=== PATIENT | female | born 1985 | race Caucasian/White ===

== ENCOUNTER → 2018-04-28 08:43 | Outpatient (CLI) | payer OTHER, MEDICAID, SELFPAY ==
--- NOTE | 2018-04-28 | DI.US.S_ITS ---
PROCEDURE: US OB >= 14 WEEKS FETUS INDICATIONS: ANATOMY SCREEN OUTSIDE/PRIOR DATING DATA: Last menstrual period (LMP): 11/12/17. LMP-based estimated date of delivery (NANCY): 08/19/18. First dating scan (date and location): 04/28/18. Estimated date of delivery (NANCY) from first dating scan: 08/23/18. TECHNIQUE: Real-time scanning was performed of the fetus, with image documentation and biometric measurements. Endovaginal scanning: No COMPARISON: [facility], , US RENAL COMPLETE, 02/11/2018, 2:59. [facility], [facility], 10/27/2016, 11:00. FINDINGS: General: A single living intrauterine gestation is present. Presentation: Breech. Placenta: Placental position is posterior, without previa. Amniotic fluid index: 18.3 cm, normal range is 5-24 cm. heart rate: 147 beats per minute. Maternal cervical canal: 3.9 cm long. Normal lower limit is 2.5 cm. biometrics: Biparietal diameter: 22 weeks 2 days Head circumference: 22 weeks 6 days Abdominal circumference: 23 weeks 6 days Femur length: 23 weeks 1 day Estimated gestational age from initial scan: not applicable. Composite gestational age from present scan: 23 weeks 2 days Estimated weight and percentile: 589 g; 22nd percentile Measurement variability for biometric dating: +/- 7 days from 14 weeks to 15 weeks 6 days gestation, +/- 10 days from 16 weeks to 21 weeks 6 days gestation, +/- 2 weeks from 22 weeks to 27 weeks 6 days gestation, +/- 3 weeks for 28 weeks gestation or later. weight reference: 4500 g or EFW >90/95% is considered macrosomia or large for gestational age. EFW <10% is small for gestational age. EFW 5% or less is considered intra-uterine growth restriction. Anatomic survey: Neuro: Ventricles are non-dilated at less than 10 mm. Cisterna magna is normal at 3-11 mm. Cerebellum is normal in size and morphology. Nuchal skin fold: Normal at less than 6 mm between 14-21 weeks gestational age. Face: Nose and lips, facial profile are normal. Spine: No evidence for spina bifida. Heart: Not well-seen. Diaphragm: Diaphragm is intact. Stomach: Left-sided stomach is present. Kidneys: No hydronephrosis. Normal is less than 5 mm in 2nd trimester, less than 7 mm in 3rd trimester. Cord: 3-vessel cord has orthotopic insertion. Bladder: Normal in size. Extremities: All 4 extremities identified. IMPRESSION: 1. Single living IUP present with the estimated gestational age at 23 weeks 2 days. Ultrasound NANCY 08/23/2018. 2. heart not well-visualized otherwise normal anatomy. Followup is recommended. Dictated by: Rene URIAS Interpreted: Batsheva Farooq MD on 04/28/2018 at 11:53 Approved by: Batsheva Farooq M.D. on 04/28/2018 at 12:49
== END ==
PROVIDERS: PCP Family Medicine; Visit Provider Family Medicine
DX: Z36.89 Encounter for other specified antenatal screening (principal); Z3A.23 23 weeks gestation of pregnancy
CPT/HCPCS: 76811

== ENCOUNTER 2018-04-28 10:04 | Emergency (ER) | payer OTHER, MEDICAID, SELFPAY ==
[2018-04-28 10:59] VITALS: BP 132/78; PULSE 87; RESP 18; TEMP 36.6; O2SAT 100; BMI 37.2
[2018-04-28 11:30] VITALS: BP 119/70; PULSE 85; O2SAT 100
[2018-04-28 11:48] LABS: Add Manual Diff / Slide Review NO; Basophils Percent Auto 0.7 % (0-2); Eosinophils Percent Auto 1.1 % (2-4); Hematocrit 32.8 % (36-46); Hemoglobin 11.4 g/dL (12.0-16.0); Lymphocytes Percent Auto 20.2 % (25-40); Mean Corpuscular HGB Conc 34.8 % (30-36); Mean Corpuscular Hemoglobin 31.5 PG (26-34); Mean Corpuscular Volume 90.6 fL (80-100); Monocytes Percent Auto 4.4 % (3-14); Neutrophils Absolute Auto 5700 /uL (3000-5900); Neutrophils Percent Auto 73.6 % (50-75); Platelet Count 203 X10^3/uL (150-400); Red Blood Cell Count 3.62 X10^6/uL (4.0-5.2); Red Cell Distribution Width 13.3 % (11.6-14.8); White Blood Cell Count 7.8 X10^3/uL (4.5-11.0)
[2018-04-28] MEDS: ONDANSETRON 4 MG/2 ML INJ IV (11:55)
[2018-04-28] MEDS: SODIUM CHLORIDE 0.9% 1,000 ML 1000 ML IV (11:55)
[2018-04-28] MEDS: CEFTRIAXONE 1 GM/50 ML FROZ.PIGGY IV (11:55)
[2018-04-28 12:00] LABS: BUN Creatinine Ratio 11.7 (6-22); Blood Urea Nitrogen 7 mg/dL (7-17); Calcium 9.4 mg/dL (8.4-10.2); Carbon Dioxide 25 mmol/L (22-32); Chloride 104 mmol/L (98-107); Estimated Glomerular Filt Rate > 60.0 mL/min (>60); Glucose 98 mg/dL (70-100); HEMOLYSIS < 15 (0-50); Potassium 4.1 mmol/L (3.4-5.1); Sodium 136 mmol/L (137-145)
[2018-04-28 12:49] VITALS: BP 122/80; PULSE 81; O2SAT 100
--- NOTE | 2018-04-28 12:51 | ED.FEMALEGU ---
HPI - Female Genitourinary General Chief complaint: Urogenital-Female Stated complaint: kidney infection Time Seen by Provider: 04/28/18 11:04 Source: patient Mode of arrival: ambulatory Limitations: no limitations History of Present Illness HPI Narrative: 33-year-old nonsmoking female is a G 15 p 7 at 23 weeks presents with dysuria and frequency with back pain. She was seen and evaluated last night at an outside facility with no evidence of a stone but some evidence of infection. The patient was started on Ceftin twice daily and given fluids and Zofran. Her pain is much worse with motion and improves with rest. She becomes intensely nauseated at the smell of the antibiotic and associated belching with it. She refuses to take any more of this antibiotic. Her primary care doc sent her here for fluids antiemetics. She does have radiation of pain to her back MD Complaint: UTI Onset (ago): hour(s) Location: perineum and suprapubic Severity: moderate Quality: Aching and Burning Duration: constant Relieving factors: none Exacerbating factors: none Urinary symptoms: Difficulty Urinating and Dysuria Patient : Yes Associated symptoms: nausea/vomiting Related Data : 15 Para: 7 Home Medications Medication Instructions Recorded Confirmed acyclovir 400 mg PO BID PRN 04/28/18 04/28/18 acyclovir 800 mg PO TIDX2 PRN 04/28/18 04/28/18 cephalexin 500 mg PO QIDX7 04/28/18 04/28/18 metoclopramide HCl 10 mg PO Q8H PRN 04/28/18 04/28/18 Previous Rx's Medication Instructions Recorded cefuroxime axetil 500 mg PO Q12H 10 Days #20 tab 04/28/18 ondansetron 4 mg PO Q6-8H PRN #10 tab 04/28/18 oxycodone 5 mg PO Q4-6H PRN #6 tab 04/28/18 Allergies Allergy/AdvReac Type Severity Reaction Status Date / Time No Known Drug Allergies Allergy Verified 04/28/18 11:05 Review of Systems Review of Systems All systems reviewed & are unremarkable except as noted in HPI and below Constitutional Denies chills, Denies fever(s), Denies lethargy and Denies weakness Eyes Denies change in vision, Denies eye discharge, Denies irritation and Denies loss of vision ENT Ears, Nose, Mouth, and Throat: Denies change in voice, Denies neck pain and Denies sore throat Cardiovascular Denies chest pain, Denies irregular heart rhythm, Denies lightheadedness, Denies palpitations, Denies dyspnea, Denies dyspnea on exertion and Denies orthopnea Respiratory Denies cough, Denies dyspnea, Denies dyspnea on exertion and Denies wheezing Gastrointestinal Gastrointestinal: Denies abdominal pain, Denies change in bowel habits, Denies diarrhea, Denies nausea and Denies vomiting Genitourinary Denies hematuria, Reports urinary frequency, Reports dysuria, Reports pelvic pain, Denies flank pain, Denies urinary incontinence and Denies urinary urgency Musculoskeletal Denies neck pain Integumentary/Breasts Denies pruritus, Denies erythema, Denies rash and Denies wounds Neurologic Denies confusion, Denies loss of vision and Denies weakness Psychiatric Denies anxiety, Denies confusion, Denies depression, Denies homicidal ideation and Denies suicidal ideation Endocrine Denies palpitations Hematologic/Lymphatic Denies easy bruising Allergic/Immunologic Denies wheezing [facility] Social History Smoking Status: Never smoker Exam Narrative Exam Narrative: 33-year-old female resting comfortably, playing on her cellphone. Initial Vital Signs Initial Vital Signs: Vital Signs Temperature 97.9 F 04/28/18 10:59 Pulse Rate 87 04/28/18 10:59 Respiratory Rate 18 04/28/18 10:59 Blood Pressure 132/78 04/28/18 10:59 Pulse Oximetry 100 04/28/18 10:59 Const General: cooperative, well developed and No in distress Nutritional Appearance: well nourished Orientation: alert, awake, oriented x3 and not confused [facility] Head: normocephalic Ears: external ears normal Nose: external nose normal Face and sinus: sinuses nontender and face symmetric Mouth: oral mucosae normal Teeth and gingiva: dentition normal Chest Chest: normal inspection of the chest Cardio Rate: regular rate Rhythm: regular rhythm Heart Sounds: no click, no gallops, no murmurs and no rubs Pulses: normal peripheral pulses GI Inspection: non-distended Palpation: soft, no hepatosplenomegaly, No guarding, No pulsatile mass and No tender Auscultation: normal bowel sounds Back/Spine/Pelvis Back: No CVA tenderness Cervical Spine: cervical ROM normal and No pain with cervical ROM Thoracic/Lumbar Spine: thoracic and lumbar spine normal to inspection Skin General: no rashes or lesions noted, No jaundice and No petechiae Extrem General: full ROM, no clubbing, cyanosis or edema, no pedal edema and no calf tenderness Course Orders Ordered: ED Orders 04/28/18 11:40 Basic Metabolic Panel Stat Complete Blood Count AUTO DIFF Stat Discontinued Medications Ceftriaxone Sodium/Dextrose (Rocephin) 1 gm in 50 mls @ 100 mls/hr IV NOW ONE Stop: 04/28/18 11:48 Last Infusion: 04/28/18 12:57 Dose: 0 mls/hr Admin: 04/28/18 11:55 Dose: 100 mls/hr Sodium Chloride (Normal Saline 0.9%) 1,000 mls @ 1,000 mls/hr IV BOLUS ONE Stop: 04/28/18 12:17 Last Infusion: 04/28/18 14:20 Dose: 0 mls/hr Admin: 04/28/18 11:55 Dose: 1,000 mls/hr Ondansetron HCl (Zofran) 4 mg IV Q4HR PRN PRN Reason: Nausea And Vomiting Last Admin: 04/28/18 11:55 Dose: 4 mg Oxycodone/Acetaminophen (Percocet 5/325) 1 tab PO NOW ONE Stop: 04/28/18 13:01 Last Admin: 04/28/18 13:11 Dose: 1 tab Consultations Consultation #1: i've spoken with PCP whom is happy to see patient tomorrow. He recommends we switch ABX to Ceftin and is happy for us to write a small Rx of Oxycodone. Vital Signs - 8 hr 04/28/18 10:59 04/28/18 11:30 04/28/18 12:49 Temperature 97.9 F Pulse Rate 87 85 81 Respiratory Rate 18 Blood Pressure 132/78 Blood Pressure [Left Arm] 119/70 122/80 Pulse Oximetry 100 100 100 04/28/18 14:37 Temperature 97.2 F L Pulse Rate 83 Respiratory Rate 16 Blood Pressure 122/76 Blood Pressure [Left Arm] Pulse Oximetry 100 MDM - Female Genitourinary Differential Diagnosis Likely urinary tract infection and ruptured ovarian cyst Medical Records Attestation: I reviewed the patient's medical records. Lab Data Attestation: I reviewed the patient's lab results. Result diagrams: 04/28/18 11:40 04/28/18 11:40 Lab Results 04/28/18 04/28/18 Range/Units 11:40 11:40 WBC 7.8 (4.5-11.0) X10^3/uL RBC 3.62 L (4.0-5.2) X10^6/uL Hgb 11.4 L (12.0-16.0) g/dL Hct 32.8 L (36-46) % MCV 90.6 (80-100) fL MCH 31.5 (26-34) PG MCHC 34.8 (30-36) % RDW 13.3 (11.6-14.8) % Plt Count 203 (150-400) X10^3/uL Neut % (Auto) 73.6 (50-75) % Lymph % (Auto) 20.2 L (25-40) % [place] % (Auto) 4.4 (3-14) % Eos % (Auto) 1.1 L (2-4) % Baso % (Auto) 0.7 (0-2) % Neut # (Auto) 5700 (0326-5552) /uL Sodium 136 L (137-145) mmol/L Potassium 4.1 (3.4-5.1) mmol/L Chloride 104 (98-107) mmol/L Carbon Dioxide 25 (22-32) mmol/L BUN 7 (7-17) mg/dL Creatinine 0.60 (0.52-1.04) mg/dL Estimated GFR > 60.0 (>60) mL/min BUN/Creatinine Ratio 11.7 (6-22) Glucose 98 (70-100) mg/dL Calcium 9.4 (8.4-10.2) mg/dL Imaging Data US - abdomen: Radiologist's impression: [address] [id number] Ultrasound Report Signed Patient: Tatyana Shah RMR#: [id number] : 1985Acct:[id number] Age/Sex: 33 / FDate of Service: 04/28/18 Loc: US Accession Number: [id number] Procedure: US OB >= 14 weeks Fetus Ordering Provider: Davon Berg MD PROCEDURE: US OB >= 14 WEEKS FETUS INDICATIONS: ANATOMY SCREEN OUTSIDE/PRIOR DATING DATA: Last menstrual period (LMP): 11/12/17. LMP-based estimated date of delivery (NANCY): 08/19/18. First dating scan (date and location): 04/28/18. Estimated date of delivery (NANCY) from first dating scan: 08/23/18. TECHNIQUE: Real-time scanning was performed of the fetus, with image documentation and biometric measurements. Endovaginal scanning: No COMPARISON: [facility], , US RENAL COMPLETE, 02/11/2018, 2:59. [facility], [facility], 10/27/2016, 11:00. FINDINGS: General: A single living intrauterine gestation is present. Presentation: Breech. Placenta: Placental position is posterior, without previa. Amniotic fluid index: 18.3 cm, normal range is 5-24 cm. heart rate: 147 beats per minute. Maternal cervical canal: 3.9 cm long. Normal lower limit is 2.5 cm. biometrics: Biparietal diameter: 22 weeks 2 days Head circumference: 22 weeks 6 days Abdominal circumference: 23 weeks 6 days Femur length: 23 weeks 1 day Estimated gestational age from initial scan: not applicable. Composite gestational age from present scan: 23 weeks 2 days Estimated weight and percentile: 589 g; 22nd percentile Measurement variability for biometric dating: +/- 7 days from 14 weeks to 15 weeks 6 days gestation, +/- 10 days from 16 weeks to 21 weeks 6 days gestation, +/- 2 weeks from 22 weeks to 27 weeks 6 days gestation, +/- 3 weeks for 28 weeks gestation or later. weight reference: 4500 g or EFW >90/95% is considered macrosomia or large for gestational age. EFW <10% is small for gestational age. EFW 5% or less is considered intra-uterine growth restriction. Anatomic survey: Neuro: Ventricles are non-dilated at less than 10 mm. Cisterna magna is normal at 3-11 mm. Cerebellum is normal in size and morphology. Nuchal skin fold: Normal at less than 6 mm between 14-21 weeks gestational age. Face: Nose and lips, facial profile are normal. Spine: No evidence for spina bifida. Heart: Not well-seen. Diaphragm: Diaphragm is intact. Stomach: Left-sided stomach is present. Kidneys: No hydronephrosis. Normal is less than 5 mm in 2nd trimester, less than 7 mm in 3rd trimester. Cord: 3-vessel cord has orthotopic insertion. Bladder: Normal in size. Extremities: All 4 extremities identified. IMPRESSION: 1. Single living IUP present with the estimated gestational age at 23 weeks 2 days. Ultrasound NANCY 08/23/2018. 2. heart not well-visualized otherwise normal anatomy. Followup is recommended. Dictated by: Rene Hill RRA Interpreted: Batsheva Farooq MD on 04/28/2018 at 11:53 Approved by: Batsheva Farooq M.D. on 04/28/2018 at 12:49 ECG Data Attestation: I personally reviewed and interpreted this ECG as follows: Prior ECG tracings: not available for review Discharge Plan Departure Patient Disposition: Home Clinical Impression: Pyelonephritis Discharge Date/Time: 04/28/18 14:37 Interventions: ED Discharge Assessment Last Done: 04/28/18 14:37 Instructions: DI for Kidney Infection Activity Restrictions/Additional Instructions: *You have been diagnosed with [ Acute Pyelonephritis] *What to do: *Take medications as directed *Follow up with Dr. Berg tomorrow call for an appointment. Let them know you were seen in the Emergency Department and that we ask that you be seen in follow up *Return to ER if you should have any new, worsening or concerning symptoms Prescriptions: New cefuroxime axetil 500 mg tablet 500 mg PO Q12H 10 Days Qty: 20 RF: 0 ondansetron 4 mg tablet,disintegrating 4 mg PO Q6-8H PRN (Reason: nausea and vomiting) Qty: 10 RF: 0 oxycodone 5 mg tablet 5 mg PO Q4-6H PRN (Reason: pain) Qty: 6 RF: 0 No Action acyclovir 800 mg tablet 800 mg PO TIDX2 PRN (Reason: herpes outbreak) RF: 0 cephalexin 500 mg capsule 500 mg PO QIDX7 RF: 0 acyclovir 200 mg capsule 400 mg PO BID PRN (Reason: Outbreak) RF: 0 metoclopramide HCl 10 mg tablet 10 mg PO Q8H PRN (Reason: Nausea) RF: 0 Referrals: Davon Berg MD [Primary Care Provider] -
[2018-04-28] MEDS: OXYCODONE/ACETAMINOPHEN 5/325 TABLET 1 TAB PO (13:11)
[2018-04-28 14:37] VITALS: BP 122/76; PULSE 83; RESP 16; TEMP 36.2; O2SAT 100
== END 2018-04-28 14:37 | disposition home or self-care (01) ==
PROVIDERS: Emergency Provider Emergency Medicine; PCP Family Medicine
DX: O26.892 Other specified pregnancy related conditions, second trimester (principal); N12 Tubulo-interstitial nephritis, not specified as acute or chronic; Z3A.23 23 weeks gestation of pregnancy
CPT/HCPCS: 36591; 76811; 80048; 85025; 96361; 96365; 96375; 99283; 99284; J2405

== ENCOUNTER 2018-05-14 21:27 | Emergency (ER) | payer OTHER, MEDICAID, SELFPAY ==
[2018-05-14 21:40] VITALS: BP 135/83; PULSE 82; RESP 18; TEMP 36.3; O2SAT 100; BMI 38.0
--- NOTE | 2018-05-14 21:57 | ED.FEMALEGU ---
HPI - Female Genitourinary General Chief complaint: Urogenital-Female Stated complaint: my kidneys are giving me trouble Time Seen by Provider: 05/14/18 21:41 History of Present Illness HPI Narrative: 33-year-old female nonsmoker G 15 P 7 at 26 weeks presents with a recurrence of dysuria, frequency and bilateral flank pain consistent with prior episodes of pyelonephritis. I last saw her for the same a few weeks ago and she responded well to a combination of Rocephin and cefuroxime. She had been doing quite well until the past few days when her symptoms seemed to have returned. She had a subjective fever but no shaking chills. She has persistent nausea. She denies any vaginal bleeding or discharge. MD Complaint: dysuria and UTI Onset (ago): hour(s) Female Urogenital Radiation: L Flank and R Flank Severity: moderate Quality: Aching and Cramping Duration: constant Relieving factors: none Exacerbating factors: urination Urinary symptoms: Difficulty Urinating, Dysuria and Flank Pain Patient : Yes Associated symptoms: nausea/vomiting Related Data Home Medications Medication Instructions Recorded Confirmed acyclovir 400 mg PO BID PRN 04/28/18 04/28/18 acyclovir 800 mg PO TIDX2 PRN 04/28/18 04/28/18 cephalexin 500 mg PO QIDX7 04/28/18 04/28/18 metoclopramide HCl 10 mg PO Q8H PRN 04/28/18 04/28/18 Previous Rx's Medication Instructions Recorded ondansetron 4 mg PO Q6-8H PRN #10 tab 04/28/18 oxycodone 5 mg PO Q4-6H PRN #6 tab 04/28/18 Allergies Allergy/AdvReac Type Severity Reaction Status Date / Time No Known Drug Allergies Allergy Verified 05/14/18 21:44 Review of Systems Review of Systems All systems reviewed & are unremarkable except as noted in HPI and below Constitutional Denies chills, Denies fever(s), Denies lethargy and Denies weakness Eyes Denies change in vision, Denies eye discharge, Denies irritation and Denies loss of vision ENT Ears, Nose, Mouth, and Throat: Denies change in voice, Denies neck pain and Denies sore throat Cardiovascular Denies chest pain, Denies irregular heart rhythm, Denies lightheadedness, Denies palpitations, Denies dyspnea, Denies dyspnea on exertion and Denies orthopnea Respiratory Denies cough, Denies dyspnea, Denies dyspnea on exertion and Denies wheezing Gastrointestinal Gastrointestinal: Denies abdominal pain, Denies change in bowel habits, Denies diarrhea, Denies nausea and Denies vomiting Genitourinary Denies hematuria, Denies flank pain, Denies urinary incontinence and Denies urinary urgency Musculoskeletal Reports back pain and Denies neck pain Integumentary/Breasts Denies pruritus, Denies erythema, Denies rash and Denies wounds Neurologic Denies confusion, Denies loss of vision and Denies weakness Psychiatric Denies anxiety, Denies confusion, Denies depression, Denies homicidal ideation and Denies suicidal ideation Endocrine Denies palpitations Hematologic/Lymphatic Denies easy bruising Allergic/Immunologic Denies wheezing [facility] Social History Smoking Status: Never smoker Exam Narrative Exam Narrative: GENERAL: 33-year-old female obviously uncomfortable, unwell HEAD: Atraumatic. Normocephalic. No temporal or scalp tenderness. EYES: Pupils equal round and reactive. Extraocular motions intact. No scleral icterus. No injection or drainage. ENT: Nose without bleeding, purulent drainage or septal hematoma. Throat without erythema, tonsillar hypertrophy or exudate. Uvula midline. Airway patent. NECK: Trachea midline. No JVD or lymphadenopathy. Supple, nontender, no meningeal signs. CARDIOVASCULAR: Regular rate and rhythm without murmurs, gallops, or rubs. RESPIRATORY: Clear to auscultation. Breath sounds equal bilaterally. No wheezes, rales, or rhonchi. GASTROINTESTINAL: Abdomen soft, non-tender, nondistended. No hepato-splenomegaly, or palpable masses. No guarding. EXTREMITIES: No clubbing, cyanosis, or edema. No joint tenderness, effusion, or edema noted. BACK: Nontender without deformity or crepitance. No flank tenderness. NEURO: AOx3. SKIN: No rash or erythema. Initial Vital Signs Initial Vital Signs: Vital Signs Temperature 97.4 F L 05/14/18 21:40 Pulse Rate 82 05/14/18 21:40 Respiratory Rate 18 05/14/18 21:40 Blood Pressure 135/83 05/14/18 21:40 Pulse Oximetry 100 05/14/18 21:40 Const General: cooperative Nutritional Appearance: obese Orientation: alert, awake and oriented x3 HENMT Head: normal to inspection Ears: hearing grossly normal bilaterally Nose: external nose normal Face and sinus: normal facial exam Mouth: oral mucosae normal Eyes General: appearance normal, both eyes and all related structures Eyelids: eyelids normal Conjunctivae: conjunctivae normal Sclera: sclerae normal Pupils: PERRL EOM: EOM intact bilaterally Chest Chest: normal inspection of the chest Cardio Rate: regular rate Rhythm: regular rhythm Heart Sounds: no click, no gallops, no murmurs and no rubs Pulses: normal peripheral pulses GI Other: Gravid uterus above the umbilicus Back/Spine/Pelvis Other: Bilateral CVA tenderness Skin General: no rashes or lesions noted, No jaundice and No petechiae Extrem General: full ROM, no clubbing, cyanosis or edema, no pedal edema and no calf tenderness Course Orders Ordered: ED Orders 05/14/18 22:15 Alanine Aminotransferase Stat Alkaline Phosphatase Stat Aspartate Aminotransferase Stat Basic Metabolic Panel Stat Bilirubin Total Stat Complete Blood Count AUTO DIFF Stat 05/14/18 22:30 Lactate (Lactic Acid) Stat 05/14/18 23:32 US renal complete Stat Discontinued Medications Ceftriaxone Sodium/Dextrose (Rocephin) 1 gm in 50 mls @ 100 mls/hr IV NOW ONE Stop: 05/14/18 22:25 Last Infusion: 05/14/18 23:05 Dose: 0 mls/hr Admin: 05/14/18 22:31 Dose: 100 mls/hr Sodium Chloride (Normal Saline 0.9%) 1,000 mls @ 1,000 mls/hr IV BOLUS ONE Stop: 05/14/18 22:55 Last Admin: 05/14/18 22:31 Dose: 1,000 mls/hr Vital Signs - 8 hr 05/14/18 21:40 05/14/18 23:45 Temperature 97.4 F L Pulse Rate 82 84 Respiratory Rate 18 16 Blood Pressure 135/83 Blood Pressure [Left Arm] 124/75 Pulse Oximetry 100 99 MDM - Female Genitourinary Lab Data Result diagrams: 05/14/18 22:15 05/14/18 22:15 Lab Results 05/14/18 05/14/18 05/14/18 Range/Units 22:15 22:15 22:15 WBC 8.9 (4.5-11.0) X10^3/uL RBC 3.81 L (4.0-5.2) X10^6/uL Hgb 11.9 L (12.0-16.0) g/dL Hct 34.6 L (36-46) % MCV 90.9 (80-100) fL MCH 31.2 (26-34) PG MCHC 34.3 (30-36) % RDW 13.1 (11.6-14.8) % Plt Count 220 (150-400) X10^3/uL Neut % (Auto) 78.1 H (50-75) % Lymph % (Auto) 15.4 L (25-40) % [place] % (Auto) 5.1 (3-14) % Eos % (Auto) 1.0 L (2-4) % Baso % (Auto) 0.4 (0-2) % Neut # (Auto) 7000 H (1632-8499) /uL Sodium 138 (137-145) mmol/L Potassium 4.1 (3.4-5.1) mmol/L Chloride 106 (98-107) mmol/L Carbon Dioxide 22 (22-32) mmol/L BUN 10 (7-17) mg/dL Creatinine 0.60 (0.52-1.04) mg/dL Estimated GFR > 60.0 (>60) mL/min BUN/Creatinine Ratio 16.7 (6-22) Glucose 109 H (70-100) mg/dL Lactate (0.7-2.1) mmol/L Calcium 9.2 (8.4-10.2) mg/dL Total Bilirubin 0.3 (0.2-1.3) mg/dL AST 16 (14-36) IU/L ALT 16 (9-52) IU/L Alkaline Phosphatase 33 L (38-126) U/L //18 Range/Units 22:30 WBC (4.5-11.0) X10^3/uL RBC (4.0-5.2) X10^6/uL Hgb (12.0-16.0) g/dL Hct (36-46) % MCV (80-100) fL MCH (26-34) PG MCHC (30-36) % RDW (11.6-14.8) % Plt Count (150-400) X10^3/uL Neut % (Auto) (50-75) % Lymph % (Auto) (25-40) % [place] % (Auto) (3-14) % Eos % (Auto) (2-4) % Baso % (Auto) (0-2) % Neut # (Auto) (0352-6514) /uL Sodium (137-145) mmol/L Potassium (3.4-5.1) mmol/L Chloride (98-107) mmol/L Carbon Dioxide (22-32) mmol/L BUN (7-17) mg/dL Creatinine (0.52-1.04) mg/dL Estimated GFR (>60) mL/min BUN/Creatinine Ratio (6-22) Glucose (70-100) mg/dL Lactate 0.9 (0.7-2.1) mmol/L Calcium (8.4-10.2) mg/dL Total Bilirubin (0.2-1.3) mg/dL AST (14-36) IU/L ALT (9-52) IU/L Alkaline Phosphatase (38-126) U/L Urine Dip Bedside Urine Glucose Negative Bedside Urine Bilirubin - Negative Bedside Urine Ketone - Negative Urine Specific [place] 1.025 Bedside Urine Occult Blood - Negative Bedside Urine pH 6.0 Bedside Urine Protein - Negative Bedside Urine Urobilinogen - Negative Bedside Urine Nitrite - Negative Bedside Urine Leukocytes - Negative Esterase Imaging Data US - abdomen: Radiologist's impression: Renal US notes no hydro or other abnormal finding MDM Narrative Medical decision making narrative: Multiple etiologies of right flank pain considered including kidney stone, pyelonephritis, hydronephrosis of , and biliary disease. Urine POC demonstrates no leuk. Estrace or nitrite, nor blood making kidney stone, UTI and pyelonephritis less likely. Renal ultrasound shows no abnormalities as well. Furthermore lab work evaluating gallbladder and liver were unremarkable. Patient will continue to treat her symptoms and follow up with her primary care provider for ongoing evaluation of this unfortunate flank pain during this Discharge Plan Departure Patient Disposition: Home Clinical Impression: Acute right flank pain Instructions: DI for Flank Pain Activity Restrictions/Additional Instructions: *You have been diagnosed with [ right flank pain ] *What to do: *Take medications as directed *Follow up with your primary care provider in 2-3 days, call for an appointment. Let them know you were seen in the Emergency Department and that we ask that you be seen in follow up *Return to ER if you should have any new, worsening or concerning symptoms Prescriptions: No Action acyclovir 800 mg tablet 800 mg PO TIDX2 PRN (Reason: herpes outbreak) RF: 0 cephalexin 500 mg capsule 500 mg PO QIDX7 RF: 0 acyclovir 200 mg capsule 400 mg PO BID PRN (Reason: Outbreak) RF: 0 metoclopramide HCl 10 mg tablet 10 mg PO Q8H PRN (Reason: Nausea) RF: 0 ondansetron 4 mg tablet,disintegrating 4 mg PO Q6-8H PRN (Reason: nausea and vomiting) Qty: 10 RF: 0 oxycodone 5 mg tablet 5 mg PO Q4-6H PRN (Reason: pain) Qty: 6 RF: 0
[2018-05-14] MEDS: SODIUM CHLORIDE 0.9% 1,000 ML 1000 ML IV (22:31)
[2018-05-14] MEDS: CEFTRIAXONE 1 GM/50 ML FROZ.PIGGY IV (22:31)
[2018-05-14 22:33] LABS: Add Manual Diff / Slide Review NO; Basophils Percent Auto 0.4 % (0-2); Hematocrit 34.6 % (36-46); Hemoglobin 11.9 g/dL (12.0-16.0); Lymphocytes Percent Auto 15.4 % (25-40); Mean Corpuscular HGB Conc 34.3 % (30-36); Mean Corpuscular Hemoglobin 31.2 PG (26-34); Mean Corpuscular Volume 90.9 fL (80-100); Monocytes Percent Auto 5.1 % (3-14); Neutrophils Absolute Auto 7000 /uL (3000-5900); Neutrophils Percent Auto 78.1 % (50-75); Platelet Count 220 X10^3/uL (150-400); Red Blood Cell Count 3.81 X10^6/uL (4.0-5.2); Red Cell Distribution Width 13.1 % (11.6-14.8); White Blood Cell Count 8.9 X10^3/uL (4.5-11.0)
[2018-05-14 22:42] LABS: BUN Creatinine Ratio 16.7 (6-22); Blood Urea Nitrogen 10 mg/dL (7-17); Calcium 9.2 mg/dL (8.4-10.2); Carbon Dioxide 22 mmol/L (22-32); Chloride 106 mmol/L (98-107); Estimated Glomerular Filt Rate > 60.0 mL/min (>60); Glucose 109 mg/dL (70-100); HEMOLYSIS < 15 (0-50); Potassium 4.1 mmol/L (3.4-5.1); Sodium 138 mmol/L (137-145)
[2018-05-14 22:55] LABS: Lactate (Lactic Acid) 0.9 mmol/L (0.7-2.1)
--- NOTE | 2018-05-14 23:32 | DI.US.S_ITS ---
PROCEDURE: US RENAL COMPLETE INDICATIONS: RIGHT FLANK PAIN TECHNIQUE: Real-time scanning was performed of the kidneys and bladder, with image documentation. COMPARISON: None. FINDINGS: Kidneys: Kidneys are normal in size. Right kidney measures 12.8 cm long; left kidney measures 12.9 cm long. Right renal cortical thickness is 1.9 cm; left renal cortical thickness is 2.1 cm. Renal cortical echotexture is normal. No hydronephrosis or nephrolithiasis. No suspicious solid mass lesions. Bladder: Pre-void bladder volume is 75 mL. Post-void residual is no mL. Pre-void images demonstrate no intraluminal masses or stones. On pre-void images, neither the right and left ureteral jets are noted with color Doppler interrogation. (Of note, ureteral jets may not be detectable in up to 25% of cases due to insufficient differences in specific gravity between ureteral and bladder urine). Miscellaneous: No free pelvic fluid. Intrauterine identified with heart rate measured 141 beats per minutes. IMPRESSION: Normal renal sonogram. No hydronephrosis. Dictated by: Chandni Lerma MD, PhD on 05/15/2018 at 9:13 Approved by: Chandni Lerma MD, PhD on 05/15/2018 at 9:14
[2018-05-14 23:45] VITALS: BP 124/75; PULSE 84; RESP 16; O2SAT 99
[2018-05-14 23:46] LABS: Alanine Aminotransferase 16 IU/L (9-52); Alkaline Phosphatase 33 U/L (38-126); Aspartate Aminotransferase 16 IU/L (14-36); Bilirubin Total 0.3 mg/dL (0.2-1.3)
[2018-05-15 00:45] VITALS: BP 121/65; PULSE 73; RESP 16; O2SAT 99
--- NOTE | 2018-05-29 21:19 | PC.NURSE ---
Late entry: 1,000 mL bag of normal saline was stopped at 2331 on 05/14/18. Total intake of normal saline was 1,000 mL.
== END 2018-05-15 00:54 | disposition home or self-care (01) ==
PROVIDERS: Emergency Provider Emergency Medicine; PCP Family Medicine
DX: R10.9 Unspecified abdominal pain (principal)
CPT/HCPCS: 36591; 76770; 80048; 81003; 82247; 83605; 84075; 84450; 84460; 85025; 96365; 99283; 99284

== ENCOUNTER → 2018-06-06 08:32 | Outpatient (CLI) | payer OTHER, MEDICAID, SELFPAY ==
--- NOTE | 2018-06-06 | DI.US.S_ITS ---
PROCEDURE: US OB FOLLOW UP INDICATIONS: REEVALUATE HEART OUTSIDE/PRIOR DATING DATA: Last menstrual period (LMP): 11/12/17. LMP-based estimated date of delivery (NANCY): 08/19/18. First dating scan (date and location): 04/28/18. Estimated date of delivery (NANCY) from first dating scan: 08/23/18. TECHNIQUE: Real-time scanning was performed of the fetus, with image documentation and biometric measurements. Endovaginal scanning: No COMPARISON: [facility], , OB >= 14 WEEKS FETUS, 04/28/2018, 9:12. FINDINGS: General: A single living intrauterine gestation is present. Presentation: Transverse. Placenta: Placental position is posterior, without previa. Amniotic fluid index: 17.0 cm, normal range is 5-24 cm. heart rate: 139 beats per minute. Maternal cervical canal: Not well-seen. Normal 4 chamber heart and cardiac outflow tracts. IMPRESSION: 1. Single living IUP redemonstrated and today's exam demonstrating a normal four-chamber heart and cardiac outflow tracts. Dictated by: Rene Hill [facility] Interpreted: Gomez Núñez MD on 06/06/2018 at 11:02 Approved by: Gomez Núñez M.D. on 06/06/2018 at 12:58
== END ==
PROVIDERS: PCP Family Medicine; Visit Provider Family Medicine
DX: Z36.89 Encounter for other specified antenatal screening (principal); Z3A.29 29 weeks gestation of pregnancy
CPT/HCPCS: 76816

== ENCOUNTER 2018-06-23 11:12 | Outpatient (CLI) | payer OTHER, MEDICAID, SELFPAY | END 2018-06-23 12:32 | disposition home or self-care (01) | LOC: LABOR 12:24 → OB 06-26 15:48 | PROVIDERS: PCP Family Medicine; Visit Provider Family Medicine | DX: Z34.83 Encounter for supervision of other normal pregnancy, third trimester (principal); R10.9 Unspecified abdominal pain; Z3A.31 31 weeks gestation of pregnancy; K59.00 Constipation, unspecified; O26.23 Pregnancy care for patient with recurrent pregnancy loss, third trimester | CPT/HCPCS: 59025; G0378; G0379 ==

== ENCOUNTER 2018-06-29 09:14 | Inpatient (IN) | payer OTHER, MEDICAID, SELFPAY ==
--- NOTE | 2018-06-29 10:13 | DI.US.S_ITS ---
PROCEDURE: US OB LIMITED INDICATIONS: PTL OUTSIDE/PRIOR DATING DATA: Last menstrual period (LMP): 11/14/17. LMP-based estimated date of delivery (NANCY): 08/19/18. First dating scan (date and location): 04/28/18 at [facility]. Estimated date of delivery (NANCY) from first dating scan: 08/23/18. TECHNIQUE: Real-time scanning was performed of the fetus, with image documentation and biometric measurements. Endovaginal scanning: Performed. COMPARISON: [facility], , [employer], 10/27/2016, 11:00. FINDINGS: General: A single living intrauterine gestation is present. Presentation: Vertex Placenta: Placental position is fundal, without previa. Amniotic fluid index: 23.8 cm, normal range is 5-24 cm. heart rate: 125 beats per minute. Maternal cervical canal: 3.7 cm long. Normal lower limit is 2.5 cm. biometrics: Biparietal diameter: 8.3 cm, 33 week and Head circumference: 29.3 cm, 32 weeks 2 days Abdominal circumference: 30.6 cm, 34 week 4 day Femur length: 6.7 cm, 34 weeks 3 days Estimated gestational age from initial scan: 32 week one day Composite gestational age from present scan: 33 week 5 day Estimated weight and percentile: 2365 g, 94% Measurement variability for biometric dating: +/- 7 days from 14 weeks to 15 weeks 6 days gestation, +/- 10 days from 16 weeks to 21 weeks 6 days gestation, +/- 2 weeks from 22 weeks to 27 weeks 6 days gestation, +/- 3 weeks for 28 weeks gestation or later. weight reference: 4500 g or EFW >90/95% is considered macrosomia or large for gestational age. EFW <10% is small for gestational age. EFW 5% or less is considered intra-uterine growth restriction. Other: biophysical profile score is 8 out of 8. Significant prominence of left maternal renal collecting system is seen suggestive of moderate to severe hydronephrosis. IMPRESSION: 1. Single v with fetus in vertex presentation. heart rate is 125 beats per minute. Estimated gestational age is 33 weeks 5 days. Estimated weight is 2365 g and is at 94%. 2. biophysical profile score is 8 out of 8. 3. Moderate to severe maternal left-sided hydronephrosis. Dictated by: Gomez Núñez M.D. on 06/29/2018 at 11:23 Approved by: Gomez Núñez M.D. on 06/29/2018 at 11:28
[2018-06-29 10:57] LABS: Add Manual Diff / Slide Review NO; Basophils Percent Auto 0.3 % (0-2); Eosinophils Percent Auto 0.5 % (2-4); Lymphocytes Percent Auto 11.7 % (25-40); Mean Corpuscular HGB Conc 34.4 % (30-36); Mean Corpuscular Hemoglobin 30.2 PG (26-34); Mean Corpuscular Volume 87.8 fL (80-100); Neutrophils Absolute Auto 9100 /uL (1500-7000); Neutrophils Percent Auto 81.5 % (50-75); Platelet Count 175 X10^3/uL (150-400); Red Blood Cell Count 3.64 X10^6/uL (4.0-5.2); Red Cell Distribution Width 13.8 % (11.6-14.8); White Blood Cell Count 11.1 X10^3/uL (4.5-11.0)
[2018-06-29] MEDS: OXYCODONE/ACETAMINOPHEN 5/325 TABLET 2 TAB PO ×2 (11:24→13:50)
[2018-06-29] MEDS: LACTATED RINGERS 1,000 ML 1000 ML IV (11:26)
[2018-06-29 11:33] LABS: Aspartate Aminotransferase 29 IU/L (14-36); BUN Creatinine Ratio 14.3 (6-22); Blood Urea Nitrogen 10 mg/dL (7-17); Estimated Glomerular Filt Rate > 60.0 mL/min (>60); Uric Acid 5.2 mg/dL (2.5-6.2)
[2018-06-29 12:01] LABS: RBC Urine None Seen (0-5/HPF); WBC Urine None Seen (0-5/HPF)
[2018-06-29 12:09] LABS: Appearance Urine UA CLEAR; Bilirubin Urine UA NEGATIVE (NEGATIVE); Color Urine UA YELLOW; Glucose Urine UA NEGATIVE (Negative); Ketones Urine UA NEGATIVE (NEGATIVE); Leukocyte Esterase Urine UA NEGATIVE (NEGATIVE); Nitrite Urine UA NEGATIVE (Negative); Occult Blood Urine UA NEGATIVE (Negative); Protein Urine UA NEGATIVE (Negative); Specific Gravity Urine UA 1.015 (1.000-1.035); Urobilinogen Urine UA 0.2 E.U./dL (0.2)
[2018-06-29 12:23] LABS: Bacteria Urine Occasional (0-1); Culture Indicated Urine Cult Not Indicated; Squamous Epithelial Cell Urine 1-5 /HPF
[2018-06-29] MEDS: LACTATED RINGERS 1,000 ML 100 ML IV (12:35)
[2018-06-29] MEDS: NIFEdipine 10 MG CAPSULE PO ×2 (13:54→14:14)
[2018-06-29] MEDS: MAGNESIUM SULFATE 4 GM/100 ML PIGGYBACK IV (14:15)
--- NOTE | 2018-06-29 14:17 | PM.OBHP.1 ---
OB HPI History of Present Condition Chief complaint: OBS Narrative: Tatyana Shah is a 33 year old female who is followed by Dr. Berg as her primary care provider. Patient is a G12 P 6 at 32 weeks gestation based on an LMP of 11/13/2017 with a EDC of 08/20/2018 whose has been complicated by left flank pain secondary to moderate to severe hydronephrosis with recurrent UTIs as well. She has also been complicated by genital herpes. The she has been treated as an outpatient for this same problem with hydrocodone and antibiotics. She presents to Labor and delivery this morning with complaints of severe flank pain and contractions. She did not make her appointment with Dr. Berg on Tuesday because her car broke down and she called stating that she was having contractions but was referred to go to Labor and delivery earlier this week I believe on Tuesday and she did not go. She continued to have contractions and they progressed and the pain progressed so that she presented to labor and delivery. On initial exam in labor and delivery she was found to be a fingertip dilated and 40% effaced. She was given Percocet for her flank pain which did help take the edge off the flank pain she was given a total of 2 tablets of 5 mg of Percocet and the pain improved though it did not go away and then it progressively worsened with progressively worsening uterine contractions and cervical change to effacement of 70% and 1 cm dilation. Due to her 30 weeks gestation it was felt that she needed transfer to a facility that could better care for a 32 week gestation . The case was discussed with Dr. Jesus Urias at [facility] who was willing to accept patient for care for labor at 32 weeks gestation and severe left hydronephrosis causing severe flank pain. Review of systems patient denies any dysuria or hematuria. Patient denies any vaginal bleeding. Patient denies any change in discharge. Patient denies any headaches on swelling and states that baby has been active. Past medical history: One. Nephrolithiasis Two. Cervical dysplasia 3. Depression anxiety 4. Herpes simplex infection Current medications Patient just finished Keflex course for suspected UTI Acyclovir vitamins Percocet as needed for left flank pain Allergies morphine Past surgical history 1. Right carpal tunnel release Past OB history 1. 01/25/2007 at 36 weeks gestation normal spontaneous vaginal delivery of a viable male weighing 6 lb 2 oz. complicated by preeclampsia 2. 09/29/2009 at 40 weeks gestation normal spontaneous vaginal delivery after 5 hr of labor at [facility] female viable at 8 lb 5 oz 3. 12/10/2011 normal spontaneous vaginal delivery of a viable 7 lb 13 oz 4. 09/18/2013 at 39 weeks gestation normal spontaneous vaginal delivery of a viable male weighing 8 lb 4 oz 5. 11/22/2014 normal spontaneous vaginal delivery of a viable 8 lb 5 oz a Patient has had 5 spontaneous miscarriages at Evaluation Evaluation Laboratory results: Laboratory Tests 06/29/18 06/29/18 06/29/18 10:36 10:36 Unknown WBC 11.1 H RBC 3.64 L Hgb 11.0 L Hct 32.0 L MCV 87.8 MCH 30.2 MCHC 34.4 RDW 13.8 Plt Count 175 Neut % (Auto) 81.5 H Lymph % (Auto) 11.7 L Hyde % (Auto) 6.0 Eos % (Auto) 0.5 L Baso % (Auto) 0.3 Neut # (Auto) 9100 H BUN 10 Creatinine 0.70 Estimated GFR > 60.0 BUN/Creatinine Ratio 14.3 Uric Acid 5.2 AST 29 Urine Color Yellow Urine Appearance Clear Urine pH 7.0 Ur Specific Carriere 1.015 Urine Protein Negative Urine Glucose (UA) Negative Urine Ketones Negative Urine Occult Blood Negative Urine Nitrate Negative Urine Bilirubin Negative Urine Urobilinogen 0.2 Ur Leukocyte Esterase Negative Urine RBC None seen Urine WBC None seen Ur Squamous Epith Cells 1-5 /hpf Urine Bacteria Occasional (0-1) Ur Culture Indicated? Cult not indicated PFSH Social History Smoking Status: Never smoker Meds Home Medications Medication Instructions Recorded Confirmed Type acyclovir 400 mg PO BID PRN 04/28/18 04/28/18 History acyclovir 800 mg PO TIDX2 PRN 04/28/18 04/28/18 History cephalexin 500 mg PO QIDX7 04/28/18 04/28/18 History metoclopramide HCl 10 mg PO Q8H PRN 04/28/18 04/28/18 History ondansetron 4 mg PO Q6-8H PRN #10 tab 04/28/18 Rx oxycodone 5 mg PO Q4-6H PRN #6 tab 04/28/18 Rx Allergies Allergy/AdvReac Type Severity Reaction Status Date / Time No Known Drug Allergies Allergy Verified 05/23/18 13:39 Review of Systems Review of Systems Twelve point review of systems is negative. Please see HPI Exam Narrative Exam Narrative: Initial blood pressure was elevated further blood pressures have been within normal. Patient is writhing in pain and grasping at her left flank HEENT: Unremarkable Neck: Supple without adenopathy or thyromegaly Chest: Clear to auscultation without wheezes Cor: Regular rate and rhythm without murmur Abdomen: Positive bowel sounds, no guarding, no rebound, estimated weight 6 lb Moderate contractions present, vertex presentation head filter press tender to palpation over the left lumbar spine Extremities: No edema pulses intact DTRs: Intact No clonus Cervix: Soft midposition high ballotable, vertex, 1 cm dilated, 70% effaced heart tracing is difficult due to being unable to get patient to hold still. Also due to patient's size able used to get her on the monitor. We are able to get a strip is reactive. Contractions are every 3-5 minutes are moderate palpation Objective Labs Result Diagrams: 06/29/18 10:36 06/29/18 10:36 Labs: Laboratory Results - last 24 hr 06/29/18 06/29/18 06/29/18 10:36 10:36 Unknown WBC 11.1 H RBC 3.64 L Hgb 11.0 L Hct 32.0 L MCV 87.8 MCH 30.2 MCHC 34.4 RDW 13.8 Plt Count 175 Neut % (Auto) 81.5 H Lymph % (Auto) 11.7 L Hyde % (Auto) 6.0 Eos % (Auto) 0.5 L Baso % (Auto) 0.3 Neut # (Auto) 9100 H BUN 10 Creatinine 0.70 Estimated GFR > 60.0 BUN/Creatinine Ratio 14.3 Uric Acid 5.2 AST 29 Urine Color Yellow Urine Appearance Clear Urine pH 7.0 Ur Specific Carriere 1.015 Urine Protein Negative Urine Glucose (UA) Negative Urine Ketones Negative Urine Occult Blood Negative Urine Nitrate Negative Urine Bilirubin Negative Urine Urobilinogen 0.2 Ur Leukocyte Esterase Negative Urine RBC None seen Urine WBC None seen Ur Squamous Epith Cells 1-5 /hpf Urine Bacteria Occasional (0-1) Ur Culture Indicated? Cult not indicated Assessment and Plan Plan: Plan: 33-year-old g-12 P6 at 32 weeks estimated gestational age based on LMP and 9 week ultrasound with labor and severe left hydronephrosis and pain secondary to this Plan: Transfer to [facility] for higher level of care and definitive treatment Patient consented of the risks and benefits of transfer Will give penicillin bolus now due to unknown GBS status Will start magnesium sulfate 4 g bolus and then 2 g an hour Betamethasone 12 mg IM given at 1428 on 06/29/2018 Serology a positive, antibody negative, rubella not immune, hepatitis-B, hepatitis-C negative hemoglobin 11.2, chlamydia negative, gonorrhea negative, Pap smear normal 01/24/2018, HIV nonreactive, glucose tolerance test 123 Status post flu shot 03/22/2018 Tetanus shot 05/15/2018
[2018-06-29] MEDS: BETAMETHASONE 30 MG/5 ML MDV 12 MG IM (14:28)
[2018-06-29] MEDS: PENICILLIN G POTASSIUM 5,000,000 UNIT in DEXTROSE 5% IN WATER 250 ML IV (14:32)
[2018-06-29] MEDS: MAGNESIUM SULFATE 20 GM/500 ML IV.SOLN IV (15:27)
== END 2018-06-29 15:45 | disposition short-term general hospital (02) | DRG 832 ==
PROVIDERS: Family Medicine; Admitting Provider Family Medicine; PCP Family Medicine; Visit Provider Family Medicine
DX: O60.03 Preterm labor without delivery, third trimester (principal); N13.30 Unspecified hydronephrosis; O26.23 Pregnancy care for patient with recurrent pregnancy loss, third trimester; Z3A.32 32 weeks gestation of pregnancy; O99.89 Other specified diseases and conditions complicating pregnancy, childbirth and the puerperium
CPT/HCPCS: 36415; 59050; 76815; 76817; 76819; 81001; 84450; 84550; 85025; 96360; 96372; G0379; J0702; J2540; J3475

== ENCOUNTER → 2018-07-26 14:07 | Outpatient (REF) | payer OTHER, MEDICAID, SELFPAY | LOC: LAB 14:07 | PROVIDERS: Visit Provider Family Medicine | DX: Z34.90 Encounter for supervision of normal pregnancy, unspecified, unspecified trimester (principal) | CPT/HCPCS: 87081 ==

== ENCOUNTER → 2018-08-01 07:59 | Outpatient (CLI) | payer OTHER, MEDICAID, SELFPAY ==
--- NOTE | 2018-08-01 | DI.US.S_ITS ---
PROCEDURE: US OB LIMITED INDICATIONS: SIZE AND GREATER THAN DATES OUTSIDE/PRIOR DATING DATA: Last menstrual period (LMP): 11/12/17. LMP-based estimated date of delivery (NANCY): 08/19/18. First dating scan (date and location): 04/28/18 [facility]. Estimated date of delivery (NANCY) from first dating scan: 08/23/18. TECHNIQUE: Real-time scanning was performed of the fetus, with image documentation and biometric measurements. Endovaginal scanning: Not performed COMPARISON: [facility], OB LIMITED, 06/29/2018, 10:38. FINDINGS: General: A single living intrauterine gestation is present. Presentation: Vertex. Placenta: Placental position is fundal, without previa. Amniotic fluid index: 26.4 cm, normal range is 5-24 cm. heart rate: 150 beats per minute. Maternal cervical canal: 3.7 cm long. Normal lower limit is 2.5 cm. biometrics: Biparietal diameter: 9.5 cm, 38 weeks, 6 days Head circumference: 34.3 cm, 39 weeks, 4 days Abdominal circumference: 37.1 cm, 41 weeks, zero days Femur length: 7.2 cm, 36 weeks, 6 days Estimated gestational age from initial scan: 36 weeks, 6 days Composite gestational age from present scan: 39 weeks, one day Estimated weight and percentile: 3882 g, 99th percentile Measurement variability for biometric dating: +/- 7 days from 14 weeks to 15 weeks 6 days gestation, +/- 10 days from 16 weeks to 21 weeks 6 days gestation, +/- 2 weeks from 22 weeks to 27 weeks 6 days gestation, +/- 3 weeks for 28 weeks gestation or later. weight reference: 4500 g or EFW >90/95% is considered macrosomia or large for gestational age. EFW <10% is small for gestational age. EFW 5% or less is considered intra-uterine growth restriction. Other: IMPRESSION: 1. Single live intrauterine gestation with a composite gestational age of 33 weeks, 5 days which is concordant with the dates by initial scan. 2. 99th percentile for weight. Sonographic findings suggest macrosomia. 3. Amniotic fluid index at 26.4 cm which is greater than the upper limits of normal suggesting polyhydramnios. Dictated by: Sweetie Davidson M.D. on 08/01/2018 at 11:33 Approved by: Sweetie Davidson M.D. on 08/01/2018 at 11:39
== END ==
PROVIDERS: PCP Family Medicine; Visit Provider Family Medicine
DX: O26.843 Uterine size-date discrepancy, third trimester (principal)
CPT/HCPCS: 76815

== ENCOUNTER 2018-08-01 08:51 | Observation (INO) | payer OTHER, MEDICAID, SELFPAY | END 2018-08-01 11:13 | disposition home or self-care (01) | PROVIDERS: Admitting Provider Family Medicine; PCP Family Medicine; Visit Provider Family Medicine | DX: O47.1 False labor at or after 37 completed weeks of gestation (principal); O26.23 Pregnancy care for patient with recurrent pregnancy loss, third trimester; Z3A.37 37 weeks gestation of pregnancy | CPT/HCPCS: 59025; 59050; 76815; G0378; G0379 ==

== ENCOUNTER 2018-08-14 07:00 | Inpatient (IN) | payer OTHER, MEDICAID, SELFPAY ==
--- NOTE | 2018-08-14 08:03 | P.HPOB_ITS ---
OB HPI Date/Time Date of admission: 08/14/18 Date Patient Seen: 08/14/18 Time Patient Seen: 08:03 History of Present Condition Chief complaint: OBS : 12 Para: 5 Estimated Date of Delivery: 08/21/18 Estimated Gestational Age (weeks): 39 Narrative: Tatyana Shah is a 33 year old female Comments: Patient is a 33-year-old SAB 5 who presents with elective induction at 39 weeks. Patient has looked LGA infant and recent 25 NORM 2 weeks ago. Has been with history of enlarged baby. Also with history of kidney stones multiple throughout this . Was on chronic narcotics for Room mid part of the . None for the last month. Increasing difficulty sleeping. Increasing pain. No leaking fluid. Good movement. No other significant change. Indications Other reason(s) for admission: Polyhydramnios. LGA infant History of Present care: good care Dating criteria: LMP confirmed by 1st trimester US Ultrasounds: normal mid trimester US and abnormal US findings Abnormal ultrasound findings: Polyhydramnios Obstetrical complications: other Medical complications: other Narrative: Polyhydramnios, persistent and recurrent kidney stones Preadmission Labs Blood type: A (+) positive -: Antibody screen: negative, Cystic fibrosis screen: negative, GBS status: negative, HBsAG: negative, HIV: negative, HSV 1: negative, HSV 2: negative and RPR/VDLR: negative -: Chlamydia screen: not detected and Gonorrhea screen: not detected -: Rubella: immune and Varicella: immune HCT: 34 HCAB: negative PAP: Normal Sequential screen: Normal Urine: Normal 1 hr GTT: 132 Prior (ies) History: 01/25/2007 36 weeks male 6 lb 2 oz Miscarriage early 09/29/2009 in 40 week 5 hr female 8 lb 5 oz Miscarriages x3 12/10/2011 7 lb 13 oz 09/18/2013 39 weeks 8 lb 4 oz 11/22/2014 8 lb 5 oz male Miscarriage Present Evaluation Evaluation Baseline heart rate: 150 Variability: Moderate (11-25) monitor accelerations: Present Contraction Frequency (minutes): 0 Category of Tracing: I Cervical dilation (cm): 2 Cervical effacement (%): 70 station: -1 [facility] Social History Smoking Status: Never smoker Meds Home Medications Medication Instructions Recorded Confirmed Type acyclovir 400 mg PO BID PRN 04/28/18 04/28/18 History acyclovir 800 mg PO TIDX2 PRN 04/28/18 04/28/18 History cephalexin 500 mg PO QIDX7 04/28/18 04/28/18 History metoclopramide HCl 10 mg PO Q8H PRN 04/28/18 04/28/18 History ondansetron 4 mg PO Q6-8H PRN #10 tab 04/28/18 Rx oxycodone 5 mg PO Q4-6H PRN #6 tab 04/28/18 Rx Allergies Allergy/AdvReac Type Severity Reaction Status Date / Time No Known Drug Allergies Allergy Verified 08/01/18 11:07 Review of Systems Review of Systems All systems reviewed & are unremarkable except as noted in HPI and below Exam Narrative Exam Narrative: Alert female no acute distress. Lungs are clear. Heart regular rate and rhythm. Abdomen is soft positive bowel sounds nontender gravid. Vertex. Extremities without cyanosis clubbing edema. Reflexes normal. Objective Labs Labs: Assessment and plan. Thirty-nine week estimated gestational age female with polyhydramnios and LGA infant here for induction. Rupture when able. Pitocin.
[2018-08-14] MEDS: LACTATED RINGERS 1,000 ML 100 ML IV (08:05)
[2018-08-14 08:20] LABS: Add Manual Diff / Slide Review NO; Basophils Absolute Auto 0 /uL (0-100); Basophils Percent Auto 0.4 % (0-2); Eosinophils Absolute Auto 100 /uL (0-450); Eosinophils Percent Auto 1.4 % (2-4); Hematocrit 35.5 % (36-46); Lymphocytes Absolute Auto 1700 /uL (1100-4500); Lymphocytes Percent Auto 24.9 % (25-40); Mean Corpuscular HGB Conc 33.9 % (30-36); Mean Corpuscular Hemoglobin 30.1 PG (26-34); Mean Corpuscular Volume 88.8 fL (80-100); Monocytes Absolute Auto 500 /uL (0-900); Monocytes Percent Auto 6.8 % (3-14); Neutrophils Absolute Auto 4500 /uL (1500-7000); Neutrophils Percent Auto 66.5 % (50-75); Platelet Count 177 X10^3/uL (150-400); Red Cell Distribution Width 16.3 % (11.6-14.8); White Blood Cell Count 6.8 X10^3/uL (4.5-11.0)
[2018-08-14] MEDS: OXYTOCIN PREMIX 30 UNIT/500 ML PLAST..BAG IV (08:28)
--- NOTE | 2018-08-14 12:34 | PM.OBPNLAB ---
Date/Time Date Patient Seen: 08/14/18 Time Patient Seen: 12:34 Pain Control Pain control: tolerating well Pelvic Exam Dilation (cm): 2 Effacement (%): 70 station: -1 Amniotic membrane status: Ruptured Contractions Contractions on admission: regular Pitocin rate (mU/min): 10 Contraction pattern: Regular Status Monitor Accelerations: Present Monitor Decelerations: Absent Monitor Variability: Moderate Assessment and Plan Assessment: induction ongoing Comments: A wrong with clear fluid. Continue Pitocin appear vaginal delivery.
--- NOTE | 2018-08-14 13:27 | PM.OBPNLAB ---
Date/Time Date Patient Seen: 08/14/18 Time Patient Seen: 13:27 Pain Control Pain control: tolerating well Comments: Starting to have an increase amount of pain Pelvic Exam Dilation (cm): 3 Effacement (%): 90 station: -1 Amniotic membrane status: Ruptured Contractions Contractions on admission: regular Monitor mode: External Contraction frequency (min): 3 Contraction pattern: Regular Status status: Category l Comments: Patient had a decrease into the 50s when she got up and went on the ball but has recovered and looks normal now. Will watch closely. Assessment and Plan Assessment: induction ongoing Plan: continuous present management Comments: Will watch closely with the celebration. Now that she has ruptured seems to be having increased intensity epidural she desires.
[2018-08-14 14:46] VITALS: BP 121/81
--- NOTE | 2018-08-14 17:33 | PM.OBPRVD ---
Events: Labor Induction and Polyhydramnios Delivery date: 08/14/18 Intrapartal events: None Cervical ripening method: none Induction method: per pitocin protocol Delivery augmentation: rupture of membranes Delivery monitor: external FHT Route of delivery: Episiotomy description: None L&D Laceration Description: None Estimated blood loss (mL): 250 Anesthesia type: Epidural Complications: None Narrative: Patient was brought in for induction for LGA and polyhydramnios. Thirty-nine weeks estimated gestational age. She was began on Pitocin due to the high to be in the pelvis. After 4 hr of Pitocin she was ruptured and clear fluid was undertaken baby tolerated well. No significant distress. There was a question at 1 time were 50 beat deceleration was noted but had never recurred. First stage was otherwise uncomplicated. No major issues. Sec stage was relatively rapid with 5 pushes child was delivered and head was delivered there was no nuchal cord. Child was then bulb suctioned on the perineum and then placed up on the abdomen. Crying immediately. Dried comfortably. Skin is skin was undertaken. Cord was then clamped and cut by dad. Placenta delivered 3 vessels intact spontaneous. EBL 250 cc. Pitocin was ran and till bag was empty. No bleeding was noted. Mother and infant were in stable condition. No resuscitation was required. Plan for aftercare: Routine care
[2018-08-14 20:10] VITALS: TEMP 36.4
[2018-08-14] MEDS: IBUPROFEN 600 MG TABLET PO (20:10)
[2018-08-15 03:37] VITALS: TEMP 36.6
[2018-08-15] MEDS: IBUPROFEN 600 MG TABLET PO ×2 (03:37→09:35)
[2018-08-15] MEDS: ONDANSETRON 4 MG ODT 8 MG PO (12:38)
--- NOTE | 2018-08-15 13:24 | P.DS_ITS ---
Discharge Providers Date of admission: 08/14/18 07:00 Primary care physician: Davon Berg MD Discharge provider: Davon Berg MD Discharge Date: 08/15/18 Summary Date Patient Seen: 08/15/18 Time Patient Seen: 13:21 Peripartum Data Infant Delivery Method: Natural Vaginal Laceration description: None Episiotomy description: None Procedures: Patient overall has done well. Minimal bleeding. Minimal pain. No other changes. Requesting to go home. Will be discharged home. Did have an e pisode of nausea felt like room was too hot. Has been otherwise feeling well tolerating p.o. is going well complications: none Status at Discharge Functional status at discharge: independent ambulation Overall status at discharge: patient is progressing back to baseline Time Spent with Patient Total time spent providing and/or coordinating discharge services: Greater than 30 minutes Specific discharge activities: May increase activity as tolerated. Objective Labs Result Diagrams: 08/14/18 08:00 Discharge Plan Discharge Plan Patient Disposition: Home Discharge Med Rec/Prescriptions Prescriptions: Continued acyclovir 800 mg tablet 800 mg PO TIDX2 PRN (Reason: herpes outbreak) RF: 0 acyclovir 200 mg capsule 400 mg PO BID PRN (Reason: Outbreak) RF: 0 ferrous gluconate 324 mg (38 mg iron) tablet 1 tab PO DAILY RF: 0 Discontinued ondansetron 4 mg tablet,disintegrating 4 mg PO Q6-8H PRN (Reason: nausea and vomiting) Qty: 10 RF: 0 oxycodone 5 mg tablet 5 mg PO Q4-6H PRN (Reason: pain) Qty: 6 RF: 0 zolpidem [Ambien] 5 mg tablet 5 mg PO PRN PRN (Reason: Sleep) RF: 0 morphine 15 mg tablet 15 mg PO PRN PRN (Reason: Pain, Moderate) RF: 0 Follow up/Referrals: Davon Berg MD [Primary Care Provider] - Provider Discharge Instructions Diet: Diet as Tolerated Diet comment: As tolerated Activity: As tolerated no sexual intercourse for 6 weeks Skin/Wound/Dressing Care Report to your healthcare provider any signs of infection, such as:: chills, fever, night sweats, increased pain, unusual drainage and unusual redness Discharge Data Primary Care Provider: Davon Berg Attending Provider: Davon Berg Admit Date/Time: 08/14/18 07:00
[2018-08-15 13:37] VITALS: BP 127/79; PULSE 89; RESP 18; TEMP 36.9
== END 2018-08-15 17:10 | disposition home or self-care (01) | DRG 807 ==
PROVIDERS: Admitting Provider Family Medicine; PCP Family Medicine; Visit Provider Family Medicine
DX: O40.3XX0 Polyhydramnios, third trimester, not applicable or unspecified (principal); Z37.0 Single live birth; O36.63X0 Maternal care for excessive fetal growth, third trimester, not applicable or unspecified; Z3A.39 39 weeks gestation of pregnancy
CPT/HCPCS: 01967; 59050; 85025; 86850; 86900; 86901; G0379; J2590; J3010

== ENCOUNTER → 2018-12-12 11:53 | Outpatient (CLI) | payer OTHER, MEDICAID, SELFPAY ==
--- NOTE | 2018-12-12 | DI.RAD.S_ITS ---
PROCEDURE: XR FOOT LT MIN 3V INDICATIONS: LEFT HEEL PAIN TECHNIQUE: 3 views of the foot were acquired. COMPARISON: None. FINDINGS: Bones: No fractures or dislocations. No suspicious bony lesions. Soft tissues: No tibiotalar joint effusion. Achilles tendon appears normal. IMPRESSION: No radiographic findings to explain heel pain. Dictated by: Batsheva Farooq M.D. on 12/12/2018 at 14:31 Approved by: Batsheva Farooq M.D. on 12/12/2018 at 14:32
== END ==
PROVIDERS: PCP Family Medicine; Visit Provider Family Medicine
DX: M79.672 Pain in left foot (principal)
CPT/HCPCS: 73630

== ENCOUNTER 2019-05-30 12:38 | Day surgery (SDC) | payer OTHER, MEDICAID, SELFPAY ==
[2019-05-25 08:38] VITALS: BMI 38.7
[2019-05-30] VITALS (8 sets, daily range): BP systolic 114–154; BP diastolic 81–109; PULSE 78–100; RESP 10–21; TEMP 36.2; O2SAT 94–100; BMI 38.7
[2019-05-30] MEDS: metroNIDAZOLE 500 MG/100 ML PIGGYBACK 100 MG IV (15:15)
[2019-05-30] MEDS: LACTATED RINGERS 1,000 ML 42 ML IV (15:15)
[2019-05-30 15:20] LABS: RBC Urine None Seen (0-5/HPF)
[2019-05-30 15:26] LABS: Appearance Urine UA CLEAR; Bilirubin Urine UA NEGATIVE (NEGATIVE); Color Urine UA YELLOW; Glucose Urine UA NEGATIVE (Negative); Ketones Urine UA NEGATIVE (NEGATIVE); Leukocyte Esterase Urine UA NEGATIVE (NEGATIVE); Nitrite Urine UA NEGATIVE (Negative); Occult Blood Urine UA NEGATIVE (Negative); Protein Urine UA NEGATIVE (Negative); Specific Gravity Urine UA 1.015 (1.000-1.035); Urobilinogen Urine UA 0.2 E.U./dL (0.2)
--- NOTE | 2019-05-30 15:26 | PM.PREOP ---
Pre-operative Note Interval Note History & Physical reviewed/Exam performed by Physician: Yes Changes to H&P: No
[2019-05-30 15:38] LABS: Amorphous Sediment Urine 1+; Bacteria Urine Few (2-10); Culture Indicated Urine Cult Not Indicated; Mucus Urine 2+ (Negative); Squamous Epithelial Cell Urine 5-10 /HPF (0-5/HPF); WBC Urine 5-10/HPF (0-5/HPF)
[2019-05-30] MEDS: CEFAZOLIN 2 GM/100 ML FROZ.PIGGY IV (15:40)
--- NOTE | 2019-05-30 15:51 | SUR.OPER ---
Prone on padded OR bed, head in foam head support, gel chest rolls, gel pad under knees, pillow under lower legs, toes free of pressure, arms secured on padded arm boards at <90 degrees abduction. Safety belt at thigh.
[2019-05-30] MEDS: BUPIVACAINE 0.25% W/ EPI 30 ML VIAL INJ (16:02)
[2019-05-30] MEDS: DIBUCAINE 1% OINT 28 GM 1 APPLIC TOP (16:02)
[2019-05-30] MEDS: BUPIVACAINE LIPOSOME 266 MG/20 ML VIAL INJ (16:04)
--- NOTE | 2019-05-30 16:28 | PM.OP.1 ---
Operative Date/Time/Diagnoses Date of procedure: 05/30/19 Time of procedure: 16:28 Pre-op diagnosis: hemorrhoids, anal pain, rectal prolapse Post-op diagnosis: other (hemorrhoids and anal fissure) Procedure & Clinicians Procedure: banding of redundant rectal mucosa x 2, hemorrhoid excision right posterior and right anterior, left internal lateral sphincterotomy Same procedure as scheduled: Yes Indications: This is a 34 yo woman with severe hemorrhoid symptoms secondary to eight pregnancies and chronic constipation. Surgeon: Daisy Rivera Click Yes if Unassisted: Yes Anesthesia Type: General Operative Notes Findings: Large internal and external hemorrhoids Specimen(s): none sent (hemorrhoids x 2 excised) Estimated Blood Loss (mL): 1 Procedure in detail: The patient was brought into the OR. Sequential compression devices were placed on both legs and turned on. Appropriate perioperative antibiotics were given. General anesthesia was induced and the patient was intubated. She was turned prone onto the OR table. All bony prominences were padded. The buttocks were taped apart. The perianal area was prepped and draped in sterile fashion. Surgical timeout was conducted. 0.25% Marcaine with epi was used to perform a four quadrant anal block. There were moderate external hemorrhoids seen on external exam, and a chronic posterior midline fissure. With copious lubricant, an anorectal exam was performed. Large internal hemorrhoids and redundant rectal mucosa was seen. The redundant mucosa was evident by its thickened and excoriated appearance, consistent with chronic prolapse. The hemorrhoidal practice advisor was brought into the field and two bands were placed on the redundant mucosa in the right posterior and left lateral positions. The right posterior internal hemorrhoid was grasped proximal to the dentate line and a PDS suture was placed in the base of the hemorrhoidal vessel and secured. The hemorrhoid was divided using cautery and dissected out including the involved vessel, excising the internal and external hemorrhoid. The hemorrhoidal tissue was excised,and the anal mucosa and anoderm were closed with PDS suture. Good hemostasis was achieved. The same was again performed at the right anterior hemorrhoidal column. Attention was then turned to the left lateral anoderm at 9:00 position. A small skin incision was made overlying the anal sphincter muscle. The skin was opened and dissection was carried down to the anal sphincter using a mosquito clamp. The internal sphincter was located and 3mm of muscle was divided, consistent with the length of the fissure. The anoderm was closed with 4-0 moncryl suture. 20mL of Exparel was used to inject the anoderm and anal canal circumferentially 2-3mL per cm. A large Gelfoam was then coated and rolled with Dibucaine and placed in the anal canal. A thick layer of Dibucaine was used to coat the anoderm. A stack of 4x4 gauze was then used to cover the anal opening and secured in place with medipore tape. The patient was transferred onto her hospital bed into supine position. She was then awakened from anesthesia and extubated. Needle, sponge, and instrument counts were correct x 2. The patient was transferred to the PACU in stable condition. Complications: none Post-operative Condition: stable Disposition: PACU
--- NOTE | 2019-05-30 17:30 | SUR.PHASEII ---
Patient ambulatory to bathroom prior to discharge. Instructions explained to spouse at bedside. Patient in stable condition on discharge.
== END 2019-05-30 17:27 | disposition home or self-care (01) ==
PROVIDERS: PCP Family Medicine; Visit Provider Surgery
PROC: (CPT 46260; principal; 2019-05-30 14:15)
DX: K64.1 Second degree hemorrhoids (principal); K64.4 Residual hemorrhoidal skin tags; K60.1 Chronic anal fissure; E66.9 Obesity, unspecified; Z68.39 Body mass index [BMI] 39.0-39.9, adult
CPT/HCPCS: 46260; 81001; C9290; J0690; J1100; J1885; J2250; J2405; J2704; J3010

== ENCOUNTER 2019-08-05 18:09 | Emergency (ER) | payer OTHER, MEDICAID, SELFPAY ==
[2019-08-05 18:19] VITALS: BP 151/81; PULSE 85; RESP 18; TEMP 36.3; O2SAT 99; BMI 39.5
[2019-08-05 18:37] LABS: Bacteria Urine None Seen
[2019-08-05 18:51] LABS: Culture Indicated Urine Specimen Cultured; RBC Urine 5-10/HPF (0-5/HPF); Squamous Epithelial Cell Urine 1-5 /HPF (0-5/HPF); WBC Urine 10-30/HPF (0-5/HPF)
--- NOTE | 2019-08-05 20:01 | DI.US.S_ITS ---
PROCEDURE: US RENAL COMPLETE INDICATIONS: SEVERE LEFT FLANK PAIN; HISTORY STONES TECHNIQUE: Real-time scanning was performed of the kidneys and bladder, with image documentation. COMPARISON: None. FINDINGS: Kidneys: Kidneys are normal in size. Right kidney measures 12.0 cm long; left kidney measures 13.4 cm long. Right renal cortical thickness is 2.0 cm; left renal cortical thickness is 1.1 cm. Renal cortical echotexture is normal. Severe left-sided hydronephrosis is noted. Proximal left ureter measures 2.4 cm in diameter. No suspicious solid mass lesions. Bladder: Bladder decompressed at the time of imaging and cannot be evaluated. Miscellaneous: No free pelvic fluid. IMPRESSION: Severe left-sided hydronephrosis. Dictated by: Chandni Lerma MD, PhD on 08/05/2019 at 20:54 Approved by: Chandni Lerma MD, PhD on 08/05/2019 at 20:56
--- NOTE | 2019-08-05 20:01 | ED.FEMALEGU ---
HPI - Female Genitourinary General Chief complaint: Urogenital-Female Stated complaint: passing a kidney stone Time Seen by Provider: 08/05/19 19:56 Source: patient Mode of arrival: Ambulatory Limitations: no limitations History of Present Illness HPI Narrative: 34F daily smoker with history of kidney stones presents with severe L flank pain since 4:00 p.m. today. She cannot find a position of comfort and denies any provocation or palliation. She denies any fever or chills but has had some nausea. She has a longstanding history of kidney stones and states this feels just like every other stone. She denies any trouble with bowel movements or difficulty urinating. MD Complaint: other Onset (ago): hour(s) Female Urogenital Radiation: L Flank Severity: moderate Quality: Sharp and Stabbing Duration: intermittent Relieving factors: none Exacerbating factors: none Patient : No Associated symptoms: denies other symptoms Related Data Home Medications Medication Instructions Recorded Confirmed acyclovir 400 mg PO BID PRN 04/28/18 06/21/19 Previous Rx's Medication Instructions Recorded docusate sodium 100 mg PO BID #60 cap 05/30/19 oxycodone-acetaminophen [Percocet] 1 tab PO Q4-6H PRN #30 tab MDD 6 05/30/19 tabs cephalexin [Keflex] 500 mg PO QID 7 Days #28 cap 08/05/19 ondansetron HCl [Zofran] 4 mg PO Q8H PRN #10 tab 08/05/19 oxycodone 5 mg PO Q6H PRN #20 tab 08/05/19 Allergies Allergy/AdvReac Type Severity Reaction Status Date / Time No Known Drug Allergies Allergy Verified 06/21/19 09:19 Review of Systems Constitutional Constitutional: Denies chills, Denies fatigue, Denies fever(s), Denies frequent falls, Denies lethargy and Denies weakness Eyes Eyes: Denies change in vision, Denies eye discharge, Denies irritation and Denies loss of vision ENT Ears, Nose, Mouth, and Throat: Denies change in voice, Denies dizziness, Denies neck pain, Denies sore throat and Denies throat swelling Cardiovascular Cardiovascular: Denies chest pain, Denies irregular heart rhythm, Denies lightheadedness, Denies palpitations, Denies dyspnea, Denies dyspnea on exertion and Denies orthopnea Respiratory Respiratory: Denies cough, Denies dyspnea, Denies dyspnea on exertion and Denies wheezing Gastrointestinal Gastrointestinal: Denies abdominal pain, Denies change in bowel habits, Denies diarrhea, Denies nausea and Denies vomiting Genitourinary Genitourinary: Denies hematuria, Reports flank pain, Denies urinary incontinence and Denies urinary urgency Musculoskeletal Musculoskeletal: Denies back pain, Denies muscle weakness, Denies neck pain, Denies numbness and Denies tingling Integumentary/Breasts Skin/Breast: Denies pruritus, Denies erythema, Denies rash and Denies wounds Neurologic Neurologic: Denies behavioral changes, Denies confusion, Denies dizziness, Denies frequent falls, Denies loss of vision, Denies numbness, Denies tingling and Denies weakness Psychiatric Psychiatric: Denies anxiety, Denies behavioral changes, Denies confusion, Denies depression, Denies homicidal ideation and Denies suicidal ideation Endocrine Endocrine: Denies fatigue, Denies flushing and Denies palpitations Hematologic/Lymphatic Hematologic/Lymphatic: Denies easy bruising Allergic/Immunologic Allergic/Immunologic: Denies urticaria, Denies throat swelling and Denies wheezing Patient History Medical History HPV (human papilloma virus) anogenital infection (Acute) HSV (herpes simplex virus) anogenital infection (Acute) Kidney stones (Acute) Vaginal delivery (Acute 08/14/18) Surgical History Hx of gynecological procedure (Acute) Family History Mother Hypertension Grandmother Diabetes mellitus tobacco type: vaping alcohol intake frequency: 0-2 drinks per day Substance Use Type: marijuana Exam Narrative Exam Narrative: GENERAL: [34] year old patient appears stated age. Well-nourished, well-developed patient, in obvious distress, pacing, rubbing her left flank, clearly uncomfortable HEAD: Atraumatic. Normocephalic. EYES: Pupils equal round and reactive. Extraocular motions intact. No scleral icterus. No injection or drainage. ENT: Nose without bleeding, purulent drainage. Throat without erythema, tonsillar hypertrophy or exudate. Airway patent. NECK: Trachea midline. Non tender CARDIOVASCULAR: Regular rate and rhythm without murmurs, gallops, or rubs. RESPIRATORY: Clear to auscultation. Breath sounds equal bilaterally. No wheezes, rales, or rhonchi. GASTROINTESTINAL: Abdomen soft, non-tender, nondistended. EXTREMITIES: No edema or joint tenderness. BACK: Nontender without deformity or crepitance. Left CVA tenderness NEURO: AOx3. SKIN: No rash or erythema of visible areas Initial Vital Signs Initial Vital Signs: Vital Signs Temperature 97.3 F L 08/05/19 18:19 Pulse Rate 85 08/05/19 18:19 Respiratory Rate 18 08/05/19 18:19 Blood Pressure 151/81 H 08/05/19 18:19 Pulse Oximetry 99 08/05/19 18:19 Course Orders Ordered: Discontinued Medications Hydromorphone HCl (Dilaudid) 1 mg IV NOW ONE Stop: 08/05/19 20:01 Last Admin: 08/05/19 20:18 Dose: 1 mg Documented by: PHIL Ceftriaxone Sodium/Dextrose (Rocephin) 1 gm in 50 mls @ 100 mls/hr IV NOW ONE Stop: 08/05/19 20:43 Last Infusion: 08/05/19 21:20 Dose: 0 mls/hr Documented by: Admin: 08/05/19 20:47 Dose: 100 mls/hr Documented by: PHIL Lidocaine HCl 8.8 ml/ Sodium (Chloride) 58.8 mls @ 352.8 mls/hr IV NOW ONE Stop: 08/05/19 20:58 Last Infusion: 08/05/19 22:00 Dose: 0 mls/hr Documented by: Admin: 08/05/19 21:49 Dose: 352.8 mls/hr Documented by: PHIL Ketorolac Tromethamine (Toradol) 15 mg IV NOW ONE Stop: 08/05/19 20:58 Last Admin: 08/05/19 21:46 Dose: 15 mg Documented by: PHIL Oxycodone/Acetaminophen (Endocet 5/325 Prepack) 1 bottle MISC SEEINSTR ONE Stop: 08/05/19 22:06 Last Admin: 08/05/19 22:44 Dose: 1 bottle Documented by: PHIL Vital Signs Vital signs: Vital Signs - 8 hr 08/05/19 18:19 Temperature 97.3 F L Pulse Rate 85 Respiratory Rate 18 Blood Pressure 151/81 H Pulse Oximetry 99 MDM - Female Genitourinary Lab Data Result diagrams: 08/05/19 20:20 08/05/19 20:20 Labs: Lab Results 08/05/19 08/05/19 08/05/19 Range/Units 18:20 20:20 20:20 WBC 8.7 (4.5-11.0) X10^3/uL RBC 4.32 (4.0-5.2) X10^6/uL Hgb 12.6 (12.0-16.0) g/dL Hct 37.2 (36-46) % MCV 86.2 (80-100) fL MCH 29.0 (26-34) PG MCHC 33.7 (30-36) % RDW 13.1 (11.6-14.8) % Plt Count 278 (150-400) X10^3/uL Neut % (Auto) 62.5 (50-75) % Lymph % (Auto) 27.5 (25-40) % [place] % (Auto) 7.2 (3-14) % Eos % (Auto) 1.9 L (2-4) % Baso % (Auto) 0.9 (0-2) % Neut # (Auto) 5400 (9747-6991) /uL Lymph # (Auto) 2400 (5922-9297) /uL [place]les # (Auto) 600 (0-900) /uL Eos # (Auto) 200 (0-450) /uL Baso # (Auto) 100 (0-100) /uL Sodium 142 (137-145) mmol/L Potassium 4.1 (3.4-5.1) mmol/L Chloride 108 H (98-107) mmol/L Carbon Dioxide 23 (22-32) mmol/L BUN 17 (7-17) mg/dL Creatinine 0.90 (0.52-1.04) mg/dL Estimated GFR > 60.0 (>60) mL/min BUN/Creatinine Ratio 18.9 (6-22) Glucose 105 H (70-100) mg/dL Calcium 9.7 (8.4-10.2) mg/dL Urine RBC 5-10/hpf H (0-5/HPF) Urine WBC 10-30/hpf H (0-5/HPF) Ur Squamous Epith Cells 1-5 /hpf (0-5/HPF) Urine Bacteria None seen (None) Ur Culture Indicated? Specimen cultured Point of Care Testing Test Results Negative Urine Dip Bedside Urine Glucose Negative Bedside Urine Bilirubin - Negative Bedside Urine Ketone - Negative Urine Specific Thompson 1.020 Bedside Urine Occult Blood + Bedside Urine pH 6.0 Bedside Urine Protein +/- 15 Bedside Urine Urobilinogen - Negative Bedside Urine Nitrite - Negative Bedside Urine Leukocytes + 70 Esterase Discharge Plan Departure Patient Disposition: Home Clinical Impression: Kidney stone UTI (urinary tract infection) Qualifiers: Urinary tract infection type: site unspecified Hematuria presence: with hematuria Qualified Code(s): N39.0 - Urinary tract infection, site not specified Discharge Date/Time: 08/05/19 22:49 Instructions: DI for Kidney Stones Activity Restrictions/Additional Instructions: *You have been diagnosed with [left-sided kidney stone with UTI] *What to do: *Take medications as directed: Prescription sent to your pharmacy in [place] at your request *Follow up with your primary care provider in 2-3 days, call for an appointment. Let them know you were seen in the Emergency Department and that we ask that you be seen in follow up *Return to ER if you should have any new, worsening or concerning symptoms Prescriptions: New cephalexin [Keflex] 500 mg capsule 500 mg PO QID 7 Days Qty: 28 RF: 0 oxycodone 5 mg tablet 5 mg PO Q6H PRN (Reason: pain) Qty: 20 RF: 0 ondansetron HCl [Zofran] 4 mg tablet 4 mg PO Q8H PRN (Reason: nausea and vomiting) Qty: 10 RF: 0 No Action acyclovir 200 mg capsule 400 mg PO BID PRN (Reason: Outbreak) RF: 0 oxycodone-acetaminophen [Percocet] 5-325 mg tablet 1 tab PO Q4-6H MDD 6 tabs PRN (Reason: post operative pain) Qty: 30 RF: 0 docusate sodium 100 mg capsule 100 mg PO BID Qty: 60 RF: 0 Referrals: Davon Berg MD [Primary Care Provider] -
[2019-08-05] MEDS: HYDROMORPHONE 1 MG INJ IV (20:18)
[2019-08-05 20:31] LABS: Add Manual Diff / Slide Review NO; Basophils Absolute Auto 100 /uL (0-100); Basophils Percent Auto 0.9 % (0-2); Eosinophils Absolute Auto 200 /uL (0-450); Eosinophils Percent Auto 1.9 % (2-4); Hematocrit 37.2 % (36-46); Hemoglobin 12.6 g/dL (12.0-16.0); Lymphocytes Absolute Auto 2400 /uL (1100-4500); Lymphocytes Percent Auto 27.5 % (25-40); Mean Corpuscular HGB Conc 33.7 % (30-36); Mean Corpuscular Volume 86.2 fL (80-100); Monocytes Absolute Auto 600 /uL (0-900); Monocytes Percent Auto 7.2 % (3-14); Neutrophils Absolute Auto 5400 /uL (1500-7000); Neutrophils Percent Auto 62.5 % (50-75); Platelet Count 278 X10^3/uL (150-400); Red Blood Cell Count 4.32 X10^6/uL (4.0-5.2); Red Cell Distribution Width 13.1 % (11.6-14.8); White Blood Cell Count 8.7 X10^3/uL (4.5-11.0)
[2019-08-05] MEDS: CEFTRIAXONE 1 GM/50 ML FROZ.PIGGY IV (20:47)
[2019-08-05 20:53] LABS: BUN Creatinine Ratio 18.9 (6-22); Blood Urea Nitrogen 17 mg/dL (7-17); Calcium 9.7 mg/dL (8.4-10.2); Carbon Dioxide 23 mmol/L (22-32); Chloride 108 mmol/L (98-107); Estimated Glomerular Filt Rate > 60.0 mL/min (>60); Glucose 105 mg/dL (70-100); HEMOLYSIS < 15 (0-50); Potassium 4.1 mmol/L (3.4-5.1); Sodium 142 mmol/L (137-145)
[2019-08-05] MEDS: KETOROLAC 60 MG/2 ML VIAL 15 MG IV (21:46)
[2019-08-05] MEDS: SODIUM CHLORIDE 0.9% IV (21:49)
[2019-08-05] MEDS: LIDOCAINE 2% IV (21:49)
[2019-08-05 22:35] VITALS: BP 129/69; PULSE 78; RESP 16; O2SAT 96
[2019-08-05] MEDS: OXYCODONE/APAP 5/325 PREPACK 1 BOTTLE MISC (22:44)
== END 2019-08-05 22:49 | disposition home or self-care (01) ==
PROVIDERS: Emergency Provider Emergency Medicine; PCP Family Medicine
DX: N20.0 Calculus of kidney (principal); Z87.442 Personal history of urinary calculi; N39.0 Urinary tract infection, site not specified; R31.9 Hematuria, unspecified
CPT/HCPCS: 76770; 80048; 81003; 81015; 81025; 85025; 87077; 87086; 87186; 96365; 96375; 99284; J1170; J1885

== ENCOUNTER 2020-03-09 20:10 | Emergency (ER) | payer OTHER, MEDICAID, SELFPAY ==
[2020-03-09] VITALS (13 sets, daily range): BP systolic 121–150; BP diastolic 80–106; PULSE 72–98; RESP 18–24; O2SAT 98–100
[2020-03-09 20:43] LABS: Add Manual Diff / Slide Review NO; Basophils Absolute Auto 100 /uL (0-100); Basophils Percent Auto 1.1 % (0-2); Eosinophils Absolute Auto 100 /uL (0-450); Eosinophils Percent Auto 2.2 % (2-4); Hematocrit 37.5 % (36-46); Hemoglobin 12.4 g/dL (12.0-16.0); Lymphocytes Absolute Auto 2300 /uL (1100-4500); Lymphocytes Percent Auto 36.9 % (25-40); Mean Corpuscular HGB Conc 33.1 % (30-36); Mean Corpuscular Hemoglobin 27.3 PG (26-34); Mean Corpuscular Volume 82.6 fL (80-100); Monocytes Absolute Auto 300 /uL (0-900); Monocytes Percent Auto 5.7 % (3-14); Neutrophils Absolute Auto 3300 /uL (1500-7000); Neutrophils Percent Auto 54.1 % (50-75); Platelet Count 316 X10^3/uL (150-400); Red Blood Cell Count 4.53 X10^6/uL (4.0-5.2); Red Cell Distribution Width 14.7 % (11.6-14.8); White Blood Cell Count 6.2 X10^3/uL (4.5-11.0)
[2020-03-09 20:51] LABS: BUN Creatinine Ratio 11.7 (6-22); Blood Urea Nitrogen 12 mg/dL (7-17); Calcium 9.6 mg/dL (8.4-10.2); Carbon Dioxide 27 mmol/L (22-32); Chloride 105 mmol/L (98-107); Estimated Glomerular Filt Rate > 60.0 mL/min (>60); Glucose 99 mg/dL (70-100); HEMOLYSIS < 15 (0-50); Potassium 3.5 mmol/L (3.4-5.1); Sodium 140 mmol/L (137-145)
[2020-03-09 21:07] LABS: WBC Urine None Seen (0-5/HPF)
[2020-03-09 21:28] LABS: Bacteria Urine Moderate (10-30); RBC Urine 1-5/HPF (0-5/HPF)
[2020-03-09 21:29] LABS: Calcium Oxalate Crystals Urine Few; Mucus Urine 2+ (Negative); Squamous Epithelial Cell Urine 0-1 /HPF (0-5/HPF)
[2020-03-09 21:30] LABS: Culture Indicated Urine Cult Not Indicated
--- NOTE | 2020-03-09 21:54 | ED.FEMALEGU ---
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 Complains of vaginal bleeding. LMP 2 months ago. Patient states she has been trying to get . She states ovulation occurred last Tuesday. started with vaginal bleeding. She states this is atypical bleeding. No history of bleeding diatheses or blood clotting disorders. felt tired and dizzy at times. Orthostatics completed. No hypotension. Did feel dizzy on standing. No tachycardia with standing. She did call her primary care last week. Patient is a 6. Urine test negative here. Related Data Home Medications Medication Instructions Recorded Confirmed acyclovir 400 mg PO BID PRN 04/28/18 02/15/20 Previous Rx's Medication Instructions Recorded docusate sodium 100 mg PO BID #60 cap 05/30/19 oxycodone-acetaminophen [Percocet] 1 tab PO Q4-6H PRN #30 tab MDD 6 05/30/19 tabs ondansetron HCl [Zofran] 4 mg PO Q8H PRN #10 tab 08/05/19 oxycodone 5 mg PO Q6H PRN #20 tab 08/05/19 Allergies Allergy/AdvReac Type Severity Reaction Status Date / Time No Known Drug Allergies Allergy Verified 02/14/20 09:41 Review of Systems Review of Systems Narrative: GENERAL: Denies chills, complains of fatigue, complains malaise, denies fever, sweats. Complains of dizziness HEENT: Denies sinus pain, ear pain, sore throat, difficulty swallowing RESPIRATORY: Denies dyspnea, cough, wheezing, hemoptysis, sputum. CARDIOVASCULAR: Denies chest pain, palpitations, orthopnea, edema, GASTROINTESTINAL: Denies nausea, vomiting, abdominal pain, diarrhea, constipation, melena. : Denies dysuria, frequency, incontinence, hematuria, urinary retention. MUSCULOSKELETAL: denies weakness, joint pain, or bony pain SKIN: Denies rash, skin lesions NEUROLOGIC: Denies weakness, headache, numbness, change in speech, confusion, seizures, incoordination. PSYCHIATRIC: No concerning psychosocial issues. ROS Unobtainable: All systems reviewed & are unremarkable except as noted in HPI and below Patient History Medical History HPV (human papilloma virus) anogenital infection (Acute) HSV (herpes simplex virus) anogenital infection (Acute) Kidney stones (Acute) Vaginal delivery (Acute 08/14/18) Surgical History Hx of gynecological procedure (Acute) Hx of hemorrhoidectomy (Acute 05/30/19) Family History Mother Hypertension Grandmother Diabetes mellitus tobacco type: vaping alcohol intake frequency: 0-2 drinks per day Substance Use Type: marijuana Exam Narrative Exam Narrative: GENERAL: patient appears stated age. Well-nourished, well-developed patient, in no distress, not toxic HEAD: Atraumatic. Normocephalic. EYES: Pupils equal round and reactive. Extraocular motions intact. No scleral icterus. No injection or drainage. Slightly pale conjunctiva ENT: Nose without bleeding, purulent drainage. Throat without erythema, tonsillar hypertrophy or exudate. Airway patent. NECK: Trachea midline. Non tender CARDIOVASCULAR: Regular rate and rhythm without murmurs, gallops, or rubs. RESPIRATORY: Clear to auscultation. Breath sounds equal bilaterally. No wheezes, rales, or rhonchi. GASTROINTESTINAL: Abdomen soft, non-tender, nondistended. female nurse at bedside to assist, [place], normal external exam. Scant amount of dark blood in the vagina. No discharge. No CMT. No tissue at the os. No adnexal tenderness EXTREMITIES: No edema or joint tenderness. BACK: Nontender without deformity or crepitance. No flank tenderness. NEURO: AOx4. SKIN: No rash or erythema of visible areas PSYCH: Not anxious, is cooperative Initial Vital Signs Initial Vital Signs: Vital Signs Pulse Rate 98 H 03/09/20 20:14 Respiratory Rate 24 03/09/20 20:14 Blood Pressure 136/98 H 03/09/20 20:14 Pulse Oximetry 100 03/09/20 20:14 Course Orders Ordered: ED Orders 03/09/20 20:30 Basic Metabolic Panel Stat Complete Blood Count AUTO DIFF Stat Type and Screen Stat 03/09/20 21:06 Chlamydia Gonorrhea PCR -URINE Stat Urine Microscopic Stat Wet Prep Tric BV Maryellen Stat Reevaluation(s) Reevaluation #1: No syncope dyspnea dizziness at this time. No hypotension. Reviewed labs and follow-up plans and patient and agree and are comfortable with this plan. Time: 23:04 Consultations Consultation #1: Spoke with primary care group provider on-call Dr. Barrera, patient to call in the morning for office recheck on Tuesday. Time: 22:43 Vital Signs Vital signs: Vital Signs - 8 hr 03/09/20 20:14 03/09/20 20:37 03/09/20 20:39 Pulse Rate 98 H 98 H 79 Pulse Rate [Orthostatic Lying] Pulse Rate [Orthostatic Sitting] Pulse Rate [Orthostatic Standing] Respiratory Rate 24 Blood Pressure 136/98 H 139/91 H Blood Pressure [Orthostatic Lying] Blood Pressure [Orthostatic Sitting] Blood Pressure [Orthostatic Standing] Pulse Oximetry 100 100 100 03/09/20 21:00 03/09/20 21:30 03/09/20 21:31 Pulse Rate 87 81 91 H Pulse Rate [Orthostatic Lying] Pulse Rate [Orthostatic Sitting] Pulse Rate [Orthostatic Standing] Respiratory Rate Blood Pressure 125/85 135/88 135/98 H Blood Pressure [Orthostatic Lying] Blood Pressure [Orthostatic Sitting] Blood Pressure [Orthostatic Standing] Pulse Oximetry 98 100 99 03/09/20 21:32 03/09/20 21:34 03/09/20 21:53 Pulse Rate 85 82 Pulse Rate [Orthostatic Lying] 75 Pulse Rate [Orthostatic Sitting] 80 Pulse Rate [Orthostatic Standing] 83 Respiratory Rate Blood Pressure 137/106 H 125/86 Blood Pressure [Orthostatic Lying] 135/88 Blood Pressure [Orthostatic Sitting] 135/98 H Blood Pressure [Orthostatic Standing] 137/106 H Pulse Oximetry 100 99 03/09/20 22:00 03/09/20 22:30 03/09/20 23:00 Pulse Rate 77 81 77 Pulse Rate [Orthostatic Lying] Pulse Rate [Orthostatic Sitting] Pulse Rate [Orthostatic Standing] Respiratory Rate Blood Pressure 126/89 121/80 Blood Pressure [Orthostatic Lying] Blood Pressure [Orthostatic Sitting] Blood Pressure [Orthostatic Standing] Pulse Oximetry 98 99 98 03/09/20 23:15 Pulse Rate 72 Pulse Rate [Orthostatic Lying] Pulse Rate [Orthostatic Sitting] Pulse Rate [Orthostatic Standing] Respiratory Rate 18 Blood Pressure 150/97 H Blood Pressure [Orthostatic Lying] Blood Pressure [Orthostatic Sitting] Blood Pressure [Orthostatic Standing] Pulse Oximetry 99 MDM - Female Genitourinary Differential Diagnosis Differential diagnosis: Likely dysmenorrhea and other (Dysfunctional uterine bleeding) Lab Data Attestation: I reviewed the patient's lab results. Result diagrams: 03/09/20 20:30 03/09/20 20:30 Labs: Lab Results 03/09/20 03/09/20 03/09/20 Range/Units 20:30 20:30 20:30 WBC 6.2 (4.5-11.0) X10^3/uL RBC 4.53 (4.0-5.2) X10^6/uL Hgb 12.4 (12.0-16.0) g/dL Hct 37.5 (36-46) % MCV 82.6 (80-100) fL MCH 27.3 (26-34) PG MCHC 33.1 (30-36) % RDW 14.7 (11.6-14.8) % Plt Count 316 (150-400) X10^3/uL Neut % (Auto) 54.1 (50-75) % Lymph % (Auto) 36.9 (25-40) % [place] % (Auto) 5.7 (3-14) % Eos % (Auto) 2.2 (2-4) % Baso % (Auto) 1.1 (0-2) % Neut # (Auto) 3300 (5199-8771) /uL Lymph # (Auto) 2300 (6143-5907) /uL [place] # (Auto) 300 (0-900) /uL Eos # (Auto) 100 (0-450) /uL Baso # (Auto) 100 (0-100) /uL Sodium 140 (137-145) mmol/L Potassium 3.5 (3.4-5.1) mmol/L Chloride 105 (98-107) mmol/L Carbon Dioxide 27 (22-32) mmol/L BUN 12 (7-17) mg/dL Creatinine 1.03 (0.52-1.04) mg/dL Estimated GFR > 60.0 (>60) mL/min BUN/Creatinine Ratio 11.7 (6-22) Glucose 99 (70-100) mg/dL Calcium 9.6 (8.4-10.2) mg/dL Urine RBC (0-5/HPF) Urine WBC (0-5/HPF) Ur Squamous Epith Cells (0-5/HPF) Calcium Oxalate Crystal Urine Bacteria (None) Urine Mucus (Negative) Ur Culture Indicated? Blood Type A Positive Antibody Screen Negative 03/09/20 Range/Units 21:06 WBC (4.5-11.0) X10^3/uL RBC (4.0-5.2) X10^6/uL Hgb (12.0-16.0) g/dL Hct (36-46) % MCV (80-100) fL MCH (26-34) PG MCHC (30-36) % RDW (11.6-14.8) % Plt Count (150-400) X10^3/uL Neut % (Auto) (50-75) % Lymph % (Auto) (25-40) % [place] % (Auto) (3-14) % Eos % (Auto) (2-4) % Baso % (Auto) (0-2) % Neut # (Auto) (2051-6882) /uL Lymph # (Auto) (2852-7946) /uL [place] # (Auto) (0-900) /uL Eos # (Auto) (0-450) /uL Baso # (Auto) (0-100) /uL Sodium (137-145) mmol/L Potassium (3.4-5.1) mmol/L Chloride (98-107) mmol/L Carbon Dioxide (22-32) mmol/L BUN (7-17) mg/dL Creatinine (0.52-1.04) mg/dL Estimated GFR (>60) mL/min BUN/Creatinine Ratio (6-22) Glucose (70-100) mg/dL Calcium (8.4-10.2) mg/dL Urine RBC 1-5/hpf (0-5/HPF) Urine WBC None seen (0-5/HPF) Ur Squamous Epith Cells 0-1 /hpf (0-5/HPF) Calcium Oxalate Crystal Few H Urine Bacteria Moderate (10-30) H (None) Urine Mucus 2+ H (Negative) Ur Culture Indicated? Cult not indicated Blood Type Antibody Screen Point of Care Testing Test Results Negative Urine Dip Bedside Urine Glucose Negative Bedside Urine Bilirubin - Negative Bedside Urine Ketone +/- 5 Urine Specific Bishop 1.030 Bedside Urine Occult Blood +++ Bedside Urine pH 6.0 Bedside Urine Protein +/- 15 Bedside Urine Urobilinogen - Negative Bedside Urine Nitrite - Negative Bedside Urine Leukocytes - Negative Esterase MDM Narrative Medical decision making narrative: No imaging indicated at this time. Patient is not . Hemodynamics stable at time of discharge. Appropriate for discharge home. Discharge Plan Departure Patient Disposition: Home Clinical Impression: DUB (dysfunctional uterine bleeding) Discharge Date/Time: 03/09/20 23:15 Activity Restrictions/Additional Instructions: Call family doctor office tomorrow morning for office recheck on Tuesday. Return if worse or if any questions or concerns or increased bleeding. Prescriptions: No Action acyclovir 200 mg capsule 400 mg PO BID PRN (Reason: Outbreak) RF: 0 oxycodone-acetaminophen [Percocet] 5-325 mg tablet 1 tab PO Q4-6H MDD 6 tabs PRN (Reason: post operative pain) Qty: 30 RF: 0 docusate sodium 100 mg capsule 100 mg PO BID Qty: 60 RF: 0 oxycodone 5 mg tablet 5 mg PO Q6H PRN (Reason: pain) Qty: 20 RF: 0 ondansetron HCl [Zofran] 4 mg tablet 4 mg PO Q8H PRN (Reason: nausea and vomiting) Qty: 10 RF: 0 Referrals: Davon Berg MD [Primary Care Provider] -
[2020-03-10 00:15] LABS: Urine N gonorrhoeae NOT DETECTED
[2020-03-10 00:16] LABS: Urine Chlamydia NOT DETECTED
== END 2020-03-09 23:15 | disposition home or self-care (01) ==
PROVIDERS: Emergency Provider Emergency Medicine; PCP Family Medicine
DX: N93.8 Other specified abnormal uterine and vaginal bleeding (principal)
CPT/HCPCS: 36415; 80048; 81003; 81015; 81025; 85025; 86850; 86900; 86901; 87210; 87491; 87591; 99283; 99284

== ENCOUNTER 2020-04-09 13:35 | Emergency (ER) | payer OTHER, MEDICAID, SELFPAY ==
[2020-04-09 13:39] VITALS: BP 133/88; PULSE 88; RESP 18; TEMP 36.5; O2SAT 100; BMI 30.9
--- NOTE | 2020-04-09 14:11 | ED.GENADULT ---
HPI - General Adult General Chief complaint: Vaginal Bleeding Stated complaint: 6 Wks Preg, Bleeding Time Seen by Provider: 04/09/20 13:36 Source: patient Mode of arrival: Ambulatory Limitations: no limitations History of Present Illness HPI narrative: 34-year-old female who states she is a had approximately 6 weeks EGA here for evaluation of vaginal bleeding that started this morning. She also complains of constipation but no urinary symptoms. No abdominal pain. No cramping. Has a ultrasound scheduled for the beginning of next week ordered by her primary/OB provider. Related Data Home Medications Medication Instructions Recorded Confirmed acyclovir 400 mg PO BID PRN 04/28/18 02/15/20 Previous Rx's Medication Instructions Recorded docusate sodium 100 mg PO BID #60 cap 05/30/19 oxycodone-acetaminophen [Percocet] 1 tab PO Q4-6H PRN #30 tab MDD 6 05/30/19 tabs ondansetron HCl [Zofran] 4 mg PO Q8H PRN #10 tab 08/05/19 oxycodone 5 mg PO Q6H PRN #20 tab 08/05/19 Allergies Allergy/AdvReac Type Severity Reaction Status Date / Time No Known Drug Allergies Allergy Verified 04/09/20 13:39 Review of Systems Constitutional Constitutional: Denies fever(s) Cardiovascular Cardiovascular: Denies chest pain and Denies dyspnea Respiratory Respiratory: Denies dyspnea Gastrointestinal Gastrointestinal: Denies abdominal pain, Reports constipation and Denies nausea Genitourinary Genitourinary: Reports vaginal discharge Integumentary/Breasts Skin/Breast: Denies rash Neurologic Neurologic: Denies behavioral changes Psychiatric Psychiatric: Denies behavioral changes Hematologic/Lymphatic Hematologic/Lymphatic: Denies easy bleeding and Denies easy bruising Patient History Medical History HPV (human papilloma virus) anogenital infection (Acute) HSV (herpes simplex virus) anogenital infection (Acute) Kidney stones (Acute) Vaginal delivery (Acute 08/14/18) Surgical History Hx of gynecological procedure (Acute) Hx of hemorrhoidectomy (Acute 05/30/19) Family History Mother Hypertension Grandmother Diabetes mellitus Social History marital status: household members: spouse and children occupational status: employed Smoking Status: Current every day smoker alcohol intake: current substance use type: marijuana Smoking Status: Current every day smoker tobacco type: vaping alcohol intake frequency: 0-2 drinks per day Substance Use Type: marijuana Exam Initial Vital Signs Initial Vital Signs: Vital Signs Temperature 97.7 F 04/09/20 13:39 Pulse Rate 88 04/09/20 13:39 Respiratory Rate 18 04/09/20 13:39 Blood Pressure 133/88 04/09/20 13:39 Pulse Oximetry 100 04/09/20 13:39 Const General: cooperative and comfortable Limitations: mental status not altered HENMT Head: normal to inspection and normocephalic Resp Effort & Inspection: normal respiratory effort Cardio Rate: regular rate GI Inspection: non-distended Neuro General: patient alert and patient awake Extrem General: normal to inspection Psych Appearance: grossly normal and well kempt Course Orders Ordered: ED Orders 04/09/20 14:11 US OB <= 14 weeks fetus Stat 04/09/20 14:25 ABO RH Type Stat Basic Metabolic Panel Stat Complete Blood Count AUTO DIFF Stat HCG Quantitative /Beta subunit Stat Vital Signs Vital signs: Vital Signs - 8 hr 04/09/20 13:39 Temperature 97.7 F Pulse Rate 88 Respiratory Rate 18 Blood Pressure 133/88 Pulse Oximetry 100 Medical Decision Making Medical Records Medical records reviewed: Yes I reviewed the patient's medical records. Lab Data Lab results reviewed: Yes I reviewed the patient's lab results. Result diagrams: 04/09/20 14:25 04/09/20 14:25 Labs: Lab Results 04/09/20 04/09/20 Range/Units 14:25 14:25 WBC 7.0 (4.5-11.0) X10^3/uL RBC 4.10 (4.0-5.2) X10^6/uL Hgb 11.5 L (12.0-16.0) g/dL Hct 34.1 L (36-46) % MCV 83.2 (80-100) fL MCH 28.0 (26-34) PG MCHC 33.6 (30-36) % RDW 15.2 H (11.6-14.8) % Plt Count 288 (150-400) X10^3/uL Neut % (Auto) 62.1 (50-75) % Lymph % (Auto) 27.8 (25-40) % [place] % (Auto) 6.7 (3-14) % Eos % (Auto) 2.3 (2-4) % Baso % (Auto) 1.1 (0-2) % Neut # (Auto) 4400 (6999-8502) /uL Lymph # (Auto) 1900 (1596-9898) /uL [place] # (Auto) 500 (0-900) /uL Eos # (Auto) 200 (0-450) /uL Baso # (Auto) 100 (0-100) /uL Sodium 138 (137-145) mmol/L Potassium 3.9 (3.4-5.1) mmol/L Chloride 106 (98-107) mmol/L Carbon Dioxide 27 (22-32) mmol/L BUN 9 (7-17) mg/dL Creatinine 0.89 (0.52-1.04) mg/dL Estimated GFR > 60.0 (>60) mL/min BUN/Creatinine Ratio 10.1 (6-22) Glucose 92 (70-100) mg/dL Calcium 9.4 (8.4-10.2) mg/dL HCG, Quant 7178 mIU/mL Urine Dip Bedside Urine Glucose Negative Bedside Urine Bilirubin - Negative Bedside Urine Ketone - Negative Urine Specific [place] 1.015 Bedside Urine Occult Blood ++ Bedside Urine pH 8.0 Bedside Urine Protein - Negative Bedside Urine Urobilinogen - Negative Bedside Urine Nitrite - Negative Bedside Urine Leukocytes - Negative Esterase Point of care testing: Urine Dip Bedside Urine Glucose Negative Bedside Urine Bilirubin - Negative Bedside Urine Ketone - Negative Urine Specific [place] 1.015 Bedside Urine Occult Blood ++ Bedside Urine pH 8.0 Bedside Urine Protein - Negative Bedside Urine Urobilinogen - Negative Bedside Urine Nitrite - Negative Bedside Urine Leukocytes - Negative Esterase Imaging Data US - OB: Radiologist's Impression: [address] [address] Ultrasound Report Signed Patient: Tatyana Shah RMR#: [id number] : 1985Acct:[id number] Age/Sex: 34 / FDate of Service: 04/09/20 Loc: ED Accession Number: [id number] Procedure: US OB <= 14 weeks fetus Ordering Provider: Gulshan Marie D.O. PROCEDURE: US OB <= 14 WEEKS FETUS INDICATIONS: ; BLEEDING OUTSIDE/PRIOR DATING DATA: Last menstrual period (LMP): Unknown LMP-based estimated date of delivery (NANCY): Unknown First dating scan (date and location): 04/09/2020 at [facility] Estimated date of delivery (NANCY) from first dating scan: 12/05/2020 TECHNIQUE: Real-time scanning was performed of the fetus and maternal pelvic organs, with image documentation. Endovaginal scanning was also performed to better visualize the fetus and maternal ovaries. COMPARISON: None. FINDINGS: Embryo: A gestational sac is seen in expected position within the uterus measuring 9 mm, compatible with a gestational age of 5 weeks 5 days. No yolk sac or pole is seen. Measurement variability in dating: +/- 4 weeks by LMP, +/- 7 days by mean sac diameter (use before 6 weeks gestation if crown-rump length not able to be measured), +/- 5 days by crown-rump length (up to 8 weeks 6 days gestation), +/- 7 days by crown-rump length (up to 13 weeks 6 days gestation). Maternal organs: Ovaries are not well visualized, but appear grossly normal. A right ovarian cyst measures up to 19 mm in diameter. No adnexal mass is seen separate from the ovaries. IMPRESSION: Intrauterine gestational sac measures is 9 mm, compatible with a 5 week 5 days gestation. No definite yolk sac or pole is seen. Findings most likely represent normal early , but correlation with serial beta HCG and follow-up ultrasound are recommended. Dictated by: Maninder Schmidt M.D. on 04/09/2020 at 15:06 Approved by: Maninder Schmidt M.D. on 04/09/2020 at 15:11 [facility] Narrative Medical decision making narrative: Patient's blood type is Rh positive. Urinalysis shows no signs of infection. Ultrasound shows 5 week 5 day gestation without other signs of ectopic . Patient already has follow-up scheduled on Tuesday with a follow-up ultrasound. She was given return precautions and follow-up instructions. She expressed understanding and agreement. Discharge Plan Departure Patient Disposition: Home Clinical Impression: Threatened miscarriage Instructions: Threatened Miscarriage Activity Restrictions/Additional Instructions: Recommend you continue all of your medications as directed and keep all of your scheduled medical appointments. Return to the emergency department for any new or worsening symptoms Prescriptions: No Action acyclovir 200 mg capsule 400 mg PO BID PRN (Reason: Outbreak) RF: 0 oxycodone-acetaminophen [Percocet] 5-325 mg tablet 1 tab PO Q4-6H MDD 6 tabs PRN (Reason: post operative pain) Qty: 30 RF: 0 docusate sodium 100 mg capsule 100 mg PO BID Qty: 60 RF: 0 oxycodone 5 mg tablet 5 mg PO Q6H PRN (Reason: pain) Qty: 20 RF: 0 ondansetron HCl [Zofran] 4 mg tablet 4 mg PO Q8H PRN (Reason: nausea and vomiting) Qty: 10 RF: 0 Referrals: Davon Berg MD [Primary Care Provider] -
[2020-04-09 14:34] LABS: Add Manual Diff / Slide Review NO; Basophils Absolute Auto 100 /uL (0-100); Basophils Percent Auto 1.1 % (0-2); Eosinophils Absolute Auto 200 /uL (0-450); Eosinophils Percent Auto 2.3 % (2-4); Hematocrit 34.1 % (36-46); Hemoglobin 11.5 g/dL (12.0-16.0); Lymphocytes Absolute Auto 1900 /uL (1100-4500); Lymphocytes Percent Auto 27.8 % (25-40); Mean Corpuscular HGB Conc 33.6 % (30-36); Mean Corpuscular Volume 83.2 fL (80-100); Monocytes Absolute Auto 500 /uL (0-900); Monocytes Percent Auto 6.7 % (3-14); Neutrophils Absolute Auto 4400 /uL (1500-7000); Neutrophils Percent Auto 62.1 % (50-75); Platelet Count 288 X10^3/uL (150-400); Red Cell Distribution Width 15.2 % (11.6-14.8)
[2020-04-09 14:44] LABS: BUN Creatinine Ratio 10.1 (6-22); Blood Urea Nitrogen 9 mg/dL (7-17); Calcium 9.4 mg/dL (8.4-10.2); Carbon Dioxide 27 mmol/L (22-32); Chloride 106 mmol/L (98-107); Estimated Glomerular Filt Rate > 60.0 mL/min (>60); Glucose 92 mg/dL (70-100); HEMOLYSIS < 15 (0-50); Potassium 3.9 mmol/L (3.4-5.1); Sodium 138 mmol/L (137-145)
[2020-04-09 15:02] LABS: HCG Quantitative /Beta subunit 7178 mIU/mL
[2020-04-09 15:22] VITALS: BP 133/84; PULSE 79; O2SAT 97
== END 2020-04-09 15:27 | disposition home or self-care (01) ==
PROVIDERS: Emergency Provider Emergency Medicine; PCP Family Medicine
DX: O20.0 Threatened abortion (principal); K59.00 Constipation, unspecified
CPT/HCPCS: 36415; 76801; 76817; 80048; 81003; 84702; 85025; 86900; 86901; 99284

== ENCOUNTER → 2020-04-14 09:44 | Outpatient (CLI) | payer OTHER, MEDICAID, SELFPAY ==
--- NOTE | 2020-04-14 | DI.US.S_ITS ---
PROCEDURE: US OB <= 14 WEEKS FETUS INDICATIONS: SPOTTING; DATES OUTSIDE/PRIOR DATING DATA: Last menstrual period (LMP): Unknown. LMP-based estimated date of delivery (NANCY): Unknown. First dating scan (date and location): 04/09/2020. Estimated date of delivery (NANCY) from first dating scan: 12/05/2020. TECHNIQUE: Real-time scanning was performed of the fetus and maternal pelvic organs, with image documentation. Endovaginal scanning was also performed to better visualize the fetus and maternal ovaries. COMPARISON: [facility], CT, CT KUB, 03/21/2020, 16:40. [facility], US, OB <= 14 WEEKS FETUS, 04/09/2020, 14:31. FINDINGS: Embryo: Intrauterine gestation. [place]-rump length measuring at 0.3 cm. 5 weeks 6 days. heart rate 101 BPM. Yolk sac is seen. No perigestational hemorrhage. Measurement variability in dating: +/- 4 weeks by LMP, +/- 7 days by mean sac diameter (use before 6 weeks gestation if crown-rump length not able to be measured), +/- 5 days by crown-rump length (up to 8 weeks 6 days gestation), +/- 7 days by crown-rump length (up to 13 weeks 6 days gestation). Maternal organs: Left ovary is normal. Right ovary is not seen. Limited images through the kidneys demonstrate no hydronephrosis. IMPRESSION: 1. [place] living intrauterine at 5 weeks 6 days based on today's crown rump length. heart rate 101 BPM. This could be bradycardia or early gestational age. -recommend follow-up OB ultrasound. 2. No perigestational hemorrhage. Dictated by: Robi Cason M.D. on 04/14/2020 at 11:43 Approved by: Robi Cason M.D. on 04/14/2020 at 11:46
== END ==
PROVIDERS: PCP Family Medicine; Referring Provider Family Medicine; Visit Provider Family Medicine
DX: Z36.87 Encounter for antenatal screening for uncertain dates (principal); Z3A.01 Less than 8 weeks gestation of pregnancy
CPT/HCPCS: 76801; 76817

== ENCOUNTER → 2020-07-22 10:42 | Outpatient (CLI) | payer OTHER, MEDICAID, SELFPAY ==
--- NOTE | 2020-07-22 | DI.US.S_ITS ---
PROCEDURE: US OB >= 14 WEEKS FETUS INDICATIONS: 20 WEEK ANATOMICAL SURVEY OUTSIDE/PRIOR DATING DATA: First dating scan (date and location): 04/09/2020 . Estimated date of delivery (NANCY) from first dating scan: 12/05/2020 . TECHNIQUE: Real-time scanning was performed of the fetus, with image documentation and biometric measurements. Endovaginal scanning: No COMPARISON: [facility], OB <= 14 WEEKS FETUS, 04/14/2020, 9:51. FINDINGS: General: A single living intrauterine gestation is present. Presentation: Transverse. Placenta: Placental position is anterior , without previa. Amniotic fluid index: 11.1 cm, normal range is 5-24 cm. heart rate: 141 beats per minute. Maternal cervical canal: 4.3 cm long. Normal lower limit is 2.5 cm. biometrics: Biparietal diameter: 19 weeks 3 days Head circumference: 20 weeks 3 days Abdominal circumference: 22 weeks 2 days Femur length: 21 weeks 3 days Estimated gestational age from initial scan: 20 weeks 4 days Composite gestational age from present scan: 20 weeks 6 days Estimated weight and percentile: 437 g; 93rd percentile Measurement variability for biometric dating: +/- 7 days from 14 weeks to 15 weeks 6 days gestation, +/- 10 days from 16 weeks to 21 weeks 6 days gestation, +/- 2 weeks from 22 weeks to 27 weeks 6 days gestation, +/- 3 weeks for 28 weeks gestation or later. weight reference: 4500 g or EFW >90/95% is considered macrosomia or large for gestational age. EFW <10% is small for gestational age. EFW 5% or less is considered intra-uterine growth restriction. Anatomic survey: Neuro: Ventricles are non-dilated at less than 10 mm. Cisterna magna is normal at 3-11 mm. Cerebellum is normal in size and morphology. Nuchal skin fold: Normal at less than 6 mm between 14-21 weeks gestational age. Face: Nose and lips, facial profile are normal. Spine: No evidence for spina bifida. Heart: 4-chambered heart is present, with normal ventricular outflow tracts. Diaphragm: Diaphragm is intact. Stomach: Left-sided stomach is present. Kidneys: No hydronephrosis. Normal is less than 5 mm in 2nd trimester, less than 7 mm in 3rd trimester. Cord: 3-vessel cord has orthotopic insertion. Bladder: Normal in size. Extremities: All 4 extremities identified. IMPRESSION: 1. Single living IUP redemonstrated and interval growth is upper limits of normal. 2. Normal anatomic survey. Dictated by: Rene REYES Interpreted: Sofy Weber MD on 07/22/2020 at 16:38 Approved by: Sofy Weber M.D. on 07/22/2020 at 17:12
== END ==
PROVIDERS: PCP Family Medicine; Referring Provider Family Medicine; Visit Provider Family Medicine
DX: Z36.89 Encounter for other specified antenatal screening (principal); Z3A.20 20 weeks gestation of pregnancy
CPT/HCPCS: 76811

== ENCOUNTER → 2020-08-11 10:53 | Outpatient (CLI) | payer OTHER, MEDICAID, SELFPAY ==
--- NOTE | 2020-08-11 10:57 | DI.US.S_ITS ---
PROCEDURE: US RENAL COMPLETE INDICATIONS: Unspecified abdominal pain TECHNIQUE: Real-time scanning was performed of the kidneys and bladder, with image documentation. COMPARISON: [facility], RENAL COMPLETE, 08/05/2019, 20:30. [facility], RENAL COMPLETE, 05/15/2018, 0:01. FINDINGS: Kidneys: Kidneys are normal in size. Right kidney measures 12.4 cm long; left kidney measures 12.9 cm long. Right renal cortical thickness is 2.1 cm; left renal cortical thickness is 1.9 cm. Renal cortical echotexture is normal. No hydronephrosis or nephrolithiasis. No suspicious solid mass lesions. Bladder: The patient's prevoid bladder volume is 25 cc. The patient is 24 weeks . She was unable to voluntarily void. Miscellaneous: No free pelvic fluid. IMPRESSION: Source of right-sided flank pain is not identified. No hydronephrosis or nephrolithiasis is found. Bladder volume is not distended at time of scanning. The patient was unable to voluntarily void with 25 cc within the bladder lumen at time of scanning. Please note that some urinary tract stones are better detected by CT scanning but CT follow-up is not recommended at this time. Dictated by: Ori Campa M.D. on 08/11/2020 at 15:06 Approved by: Ori Campa M.D. on 08/11/2020 at 15:08
== END ==
PROVIDERS: PCP Family Medicine; Referring Provider Family Medicine; Visit Provider Family Medicine
DX: R10.9 Unspecified abdominal pain (principal)
CPT/HCPCS: 76770

== ENCOUNTER 2020-09-23 13:20 | Observation (INO) | payer OTHER, MEDICAID, SELFPAY ==
--- NOTE | 2020-09-23 14:52 | DI.US.S_ITS ---
PROCEDURE: US OB TRANSVAGINAL INDICATIONS: CERVIX OUTSIDE/PRIOR DATING DATA: Last menstrual period (LMP): Not available. LMP-based estimated date of delivery (NANCY): Not available . First dating scan (date and location): 04/09/20. Estimated date of delivery (NANCY) from first dating scan: 12/05/20 . TECHNIQUE: Real-time scanning was performed of the fetus, with image documentation. Endovaginal scanning: Performed. COMPARISON: None. FINDINGS: A single living intrauterine gestation is present. Presentation: Breech Placenta: Placental position is anterior , without previa. Amniotic fluid index: 20.8 cm, normal range is 5-24 cm. heart rate: 140 beats per minute. Maternal cervical canal: 4.4 cm long. Normal lower limit is 2.5 cm. Estimated gestational age from initial scan: 29 weeks 4 days . IMPRESSION: Single living intrauterine gestation, breech presentation, normal amniotic fluid volume. heart rate 140 beats per minute, maternal cervical canal length is normal at 4.4 cm. Limited study at clinician request. Dictated by: Ori Campa M.D. on 09/23/2020 at 16:31 Approved by: Ori Campa M.D. on 09/23/2020 at 16:34
== END 2020-09-23 16:28 | disposition home or self-care (01) ==
PROVIDERS: Admitting Provider Family Medicine; PCP Family Medicine; Referring Provider Family Medicine; Visit Provider Family Medicine
DX: O47.03 False labor before 37 completed weeks of gestation, third trimester (principal); O32.1XX0 Maternal care for breech presentation, not applicable or unspecified; Z3A.29 29 weeks gestation of pregnancy
CPT/HCPCS: 59025; 76817; G0378; G0379

== ENCOUNTER → 2020-10-23 10:40 | Outpatient (CLI) | payer OTHER, MEDICAID, SELFPAY ==
--- NOTE | 2020-10-23 10:41 | DI.US.S_ITS ---
PROCEDURE: US OB LIMITED INDICATIONS: CERVICAL LENGTH/GROWTH OUTSIDE/PRIOR DATING DATA: First dating scan (date and location): 04/09/2020, [facility] . Estimated date of delivery (NANCY) from first dating scan: 12/05/2020 . TECHNIQUE: Real-time scanning was performed of the fetus, with image documentation. Endovaginal scanning: Included COMPARISON: [facility], , OB LIMITED, 08/01/2018, 10:00. FINDINGS: A single living intrauterine gestation is present. Presentation: Vertex. Placenta: Placental position is anterior , without previa. Amniotic fluid index: 16.3 cm, normal range is 5-24 cm. heart rate: 136 beats per minute. Maternal cervical canal: 5.8 cm long. Normal lower limit is 2.5 cm. BPD 8.4 cm, 33 week 6 day HC 30.8 cm, 34 week 3 day AC 33.0 cm, 36 week 6 day FL 6.2 cm, 32 week 0 day EGA by initial U/S 33 week 6 day Composite EGA 34 week 2 day Estimated weight 2585 g, 79 percentile IMPRESSION: Single live intrauterine consistent with a 34 week 2 day gestation Dictated by: Nahum Dunlap M.D. on 10/23/2020 at 16:09 Approved by: Nahum Dunlap M.D. on 10/23/2020 at 16:16
== END ==
PROVIDERS: PCP Family Medicine; Referring Provider Family Medicine; Visit Provider Family Medicine
DX: Z36.86 Encounter for antenatal screening for cervical length (principal); Z3A.34 34 weeks gestation of pregnancy
CPT/HCPCS: 76815; 76817

== ENCOUNTER → 2020-11-10 12:11 | Outpatient (ROUT) | payer OTHER, MEDICAID, SELFPAY | PROVIDERS: PCP Family Medicine; Visit Provider Family Medicine | DX: B95.1 Streptococcus, group B, as the cause of diseases classified elsewhere (principal) | CPT/HCPCS: 87081 ==

== ENCOUNTER 2020-11-16 22:13 | Observation (INO) | payer OTHER, MEDICAID, SELFPAY ==
[2020-11-16 23:28] LABS: Add Manual Diff / Slide Review NO; Basophils Absolute Auto 0 /uL (0-100); Basophils Percent Auto 0.4 % (0-2); Eosinophils Absolute Auto 200 /uL (0-450); Eosinophils Percent Auto 2.2 % (2-4); Hematocrit 32.3 % (36-46); Hemoglobin 10.6 g/dL (12.0-16.0); Lymphocytes Absolute Auto 1500 /uL (1100-4500); Mean Corpuscular Hemoglobin 26.1 PG (26-34); Mean Corpuscular Volume 79.1 fL (80-100); Monocytes Absolute Auto 600 /uL (0-900); Monocytes Percent Auto 6.9 % (3-14); Neutrophils Absolute Auto 6700 /uL (1500-7000); Neutrophils Percent Auto 73.5 % (50-75); Platelet Count 233 X10^3/uL (150-400); Red Blood Cell Count 4.08 X10^6/uL (4.0-5.2); Red Cell Distribution Width 16.5 % (11.6-14.8); White Blood Cell Count 9.1 X10^3/uL (4.5-11.0)
[2020-11-16 23:36] LABS: Aspartate Aminotransferase 17 IU/L (14-36); BUN Creatinine Ratio 12.7 (6-22); Blood Urea Nitrogen 7 mg/dL (7-17); Estimated Glomerular Filt Rate > 60.0 mL/min (>60); Uric Acid 5.8 mg/dL (2.5-6.2)
[2020-11-17 00:48] LABS: Protein (Total) Urine Random 7 mg/dL (0-12); Protein Creatinine Ratio Urine 0.01 GRAM/24H
== END 2020-11-17 00:50 | disposition home or self-care (01) ==
PROVIDERS: Student in an Organized Health Care Education/Training Program; Admitting Provider Family Medicine; PCP Family Medicine; Referring Provider Family Medicine; Visit Provider Family Medicine
DX: O47.1 False labor at or after 37 completed weeks of gestation (principal); Z3A.37 37 weeks gestation of pregnancy
CPT/HCPCS: 36415; 59025; 59050; 82570; 84112; 84156; 84450; 84550; 85025; G0378; G0379

== ENCOUNTER 2020-11-22 10:52 | Outpatient (CLI) | payer OTHER, MEDICAID, SELFPAY | END 2020-11-22 12:00 | disposition home or self-care (01) | LOC: LABOR 10:55 → OB 11-24 09:49 | PROVIDERS: PCP Family Medicine; Referring Provider Family Medicine; Visit Provider Family Medicine | DX: Z03.71 Encounter for suspected problem with amniotic cavity and membrane ruled out (principal); O99.213 Obesity complicating pregnancy, third trimester; O99.323 Drug use complicating pregnancy, third trimester; F12.90 Cannabis use, unspecified, uncomplicated; Z3A.38 38 weeks gestation of pregnancy | CPT/HCPCS: 59025; 84112; G0378; G0379 ==

== ENCOUNTER 2020-11-25 15:26 | Outpatient (CLI) | payer OTHER, MEDICAID, SELFPAY ==
[2020-11-25 16:28] LABS: Add Manual Diff / Slide Review NO; Basophils Absolute Auto 0 /uL (0-100); Basophils Percent Auto 0.5 % (0-2); Eosinophils Absolute Auto 400 /uL (0-450); Eosinophils Percent Auto 4.6 % (2-4); Hematocrit 33.1 % (36-46); Lymphocytes Absolute Auto 1800 /uL (1100-4500); Lymphocytes Percent Auto 19.2 % (25-40); Mean Corpuscular HGB Conc 33.1 % (30-36); Mean Corpuscular Hemoglobin 26.1 PG (26-34); Mean Corpuscular Volume 78.9 fL (80-100); Monocytes Absolute Auto 500 /uL (0-900); Monocytes Percent Auto 5.4 % (3-14); Neutrophils Absolute Auto 6600 /uL (1500-7000); Neutrophils Percent Auto 70.3 % (50-75); Platelet Count 216 X10^3/uL (150-400); Red Cell Distribution Width 16.7 % (11.6-14.8); White Blood Cell Count 9.4 X10^3/uL (4.5-11.0)
[2020-11-25 16:47] LABS: Aspartate Aminotransferase 19 IU/L (14-36); Blood Urea Nitrogen 5 mg/dL (7-17); Estimated Glomerular Filt Rate > 60.0 mL/min (>60); Uric Acid 5.3 mg/dL (2.5-6.2)
[2020-11-25 17:00] LABS: Creatinine Urine Random 287.9 mg/dL; Protein (Total) Urine Random 6 mg/dL (0-12); Protein Creatinine Ratio Urine 0.02 GRAM/24H
--- NOTE | 2020-12-01 07:49 | PM.OBHP.1 ---
OB HPI Date/Time Date of admission: 12/01/20 History of Present Condition Chief complaint: NST Narrative: Tatyana Shah is a 35 year old female 39 weeks with good dates and limited care who presents for induction for increased blood pressure. Patient has had intermittent increase in blood pressure for the last few weeks. Normal nst and blood work. No physical changes except slight edema. otherwise no headaches. some nausea. movement has been decreased but normal nst. intermittent contractions but not leaking fluid. No significant change today. Indications Indication for induction OB: medical complication Other reason(s) for admission: see history History of Present Ultrasounds: normal 1st trimester US and normal mid trimester US Obstetrical complications: gestational hypertension and hyperemesis Medical complications: none Evaluation Evaluation Laboratory results: Laboratory Tests 11/25/20 11/25/20 11/25/20 16:20 16:20 16:21 WBC 9.4 RBC 4.20 Hgb 11.0 L Hct 33.1 L MCV 78.9 L MCH 26.1 MCHC 33.1 RDW 16.7 H Plt Count 216 Neut % (Auto) 70.3 Lymph % (Auto) 19.2 L [place] % (Auto) 5.4 Eos % (Auto) 4.6 H Baso % (Auto) 0.5 Neut # (Auto) 6600 Lymph # (Auto) 1800 [place] # (Auto) 500 Eos # (Auto) 400 Baso # (Auto) 0 BUN Creatinine Estimated GFR BUN/Creatinine Ratio Uric Acid AST U Random Total Protein 6 Cancelled Urine Creatinine 287.9 Protein/Creatinin Ratio 0.02 11/25/20 16:21 WBC RBC Hgb Hct MCV MCH MCHC RDW Plt Count Neut % (Auto) Lymph % (Auto) [place] % (Auto) Eos % (Auto) Baso % (Auto) Neut # (Auto) Lymph # (Auto) [place] # (Auto) Eos # (Auto) Baso # (Auto) BUN 5 L Creatinine 0.50 L Estimated GFR > 60.0 BUN/Creatinine Ratio 10.0 Uric Acid 5.3 AST 19 U Random Total Protein Urine Creatinine Protein/Creatinin Ratio [facility] Medical History (Updated 04/24/20 @ 00:00 by ) HPV (human papilloma virus) anogenital infection HSV (herpes simplex virus) anogenital infection Kidney stones Vaginal delivery (08/14/18) Surgical History Hx of gynecological procedure Hx of hemorrhoidectomy (05/30/19) Family History Mother Hypertension Grandmother Diabetes mellitus Social History marital status: household members: spouse and children occupational status: employed Smoking Status: Current every day smoker alcohol intake: current substance use type: marijuana Meds Home Medications and Allergies Home Medications Medication Instructions Recorded Confirmed Type acyclovir 400 mg PO BID PRN 04/28/18 02/15/20 History docusate sodium 100 mg PO BID #60 cap 05/30/19 02/15/20 Rx oxycodone-acetaminophen [Percocet] 1 tab PO Q4-6H PRN #30 tab MDD 6 05/30/19 02/15/20 Rx tabs ondansetron HCl [Zofran] 4 mg PO Q8H PRN #10 tab 08/05/19 02/15/20 Rx oxycodone 5 mg PO Q6H PRN #20 tab 08/05/19 02/15/20 Rx Allergies Allergy/AdvReac Type Severity Reaction Status Date / Time No Known Drug Allergies Allergy Verified 04/09/20 13:39 Review of Systems Review of Systems ROS: Yes All systems reviewed with the patient and are negative except as otherwise documented Exam Narrative Exam Narrative: alert gravid female in nad abd soft non tender, trace edema, normal reflexeds Objective Labs Result Diagrams: 11/25/20 16:21 11/25/20 16:21 Assessment and Plan Assessment and Plan Assessment and Plan narrative: 39 week iup with increased blood pressure but normal labs here for induction. pit per protocol.
== END 2020-11-25 17:30 | disposition home or self-care (01) ==
LOC: LABOR 15:45 → OB 11-26 08:42
PROVIDERS: PCP Family Medicine; Referring Provider Family Medicine; Visit Provider Family Medicine
DX: O36.8130 Decreased fetal movements, third trimester, not applicable or unspecified (principal); O47.1 False labor at or after 37 completed weeks of gestation; Z3A.38 38 weeks gestation of pregnancy
CPT/HCPCS: 59025; 59050; 82570; 84156; 84450; 84550; 85025; G0378; G0379

== ENCOUNTER 2020-12-01 08:05 | Inpatient (IN) | payer OTHER, MEDICAID, SELFPAY ==
[2020-12-01] MEDS: CEFOTETAN 2 GM in SODIUM CHLORIDE 0.9% 100 ML 200 ML IV (09:35)
--- NOTE | 2020-12-01 09:36 | SUR.OPER ---
Supine on Padded OR bed, head on pillow, safety belt at thigh, arms secured on padded arm boards at <90 degrees abduction. Bump under right buttock. Legs uncrossed with pillow under knees, gel pad to heels, tape over blanket to lower legs.
--- NOTE | 2020-12-01 09:47 | SUR.OPER ---
FHT's 99 pre incision. Live male @0193. Placenta and cord blood to OB with OB Rn.
[2020-12-01] MEDS: ACETAMINOPHEN IV 1,000 MG/100 ML VIAL 400 MG IV (09:58)
[2020-12-01 10:49] LABS: COVID19 -Nasal RAPID Negative (Negative)
[2020-12-01 10:52] VITALS: BP 146/93; PULSE 104; RESP 16; TEMP 36.4; O2SAT 95
[2020-12-01 10:55] LABS: Add Manual Diff / Slide Review NO; Basophils Absolute Auto 100 /uL (0-100); Eosinophils Absolute Auto 700 /uL (0-450); Eosinophils Percent Auto 8.5 % (2-4); Hematocrit 31.2 % (36-46); Hemoglobin 10.4 g/dL (12.0-16.0); Lymphocytes Absolute Auto 2000 /uL (1100-4500); Lymphocytes Percent Auto 24.7 % (25-40); Mean Corpuscular HGB Conc 33.3 % (30-36); Mean Corpuscular Hemoglobin 26.4 PG (26-34); Mean Corpuscular Volume 79.4 fL (80-100); Monocytes Absolute Auto 600 /uL (0-900); Monocytes Percent Auto 6.8 % (3-14); Neutrophils Absolute Auto 4800 /uL (1500-7000); Platelet Count 202 X10^3/uL (150-400); Red Blood Cell Count 3.93 X10^6/uL (4.0-5.2); Red Cell Distribution Width 17.2 % (11.6-14.8); White Blood Cell Count 8.1 X10^3/uL (4.5-11.0)
[2020-12-01 10:57] VITALS: BP 157/99; PULSE 98; RESP 16; O2SAT 99
[2020-12-01] MEDS: HYDROMORPHONE 2 MG INJ IV (10:59)
[2020-12-01 11:02] VITALS: BP 139/86; PULSE 90; RESP 14; O2SAT 95
[2020-12-01 11:07] VITALS: BP 148/85; PULSE 82; RESP 14; O2SAT 95
[2020-12-01] MEDS: ALBUTEROL 2.5 MG/3 ML NEB (ADULT) INH (11:07)
--- NOTE | 2020-12-01 11:10 | PM.OP.1 ---
Operative Date/Time/Diagnoses Date of procedure: 12/01/20 Time of procedure: 11:10 Pre-op diagnosis: Thirty-nine week intrauterine with mild hypertension and distress Post-op diagnosis: same Procedure & Clinicians Procedure: Primary low transverse section Same procedure as scheduled: Yes Indications: 39 week intrauterine presented for induction initially normal heart rates in the 130 with persistent deceleration into the 70s. Attempted fluid hydration positional changes with no change documented with ultrasound heart monitor and due to persistent deceleration with no labor emergent delivery operative Surgeon: Davon Berg Rn Building: [facility] Click Yes if Unassisted: No Anesthesia Type: General Operative Notes Findings: Viable male occiput put anterior presentation. No obvious malformation of placenta or cord. No nuchal cord. Low fluid volume. Normal pelvic organs. Cord pH 7.013 arterial and 6.998 venous. No resuscitation was required. Apgars were 6/9/9 Closure Type: primary Specimen(s): none sent Applied: catheter Estimated Blood Loss (mL): 800 Blood products transfused: none Procedure in detail: Patient presented to the labor and delivery period and in the process of getting things set up initial heart rate was in the 130s it was noted then to drop into the 70s and positional changes and fluids were began with no real improvement. Persisted and emergent section was called. Patient was brought back to the operative theater after consent was signed. Following scopes protocol. Patient was transferred to the operative table and heart rate was 90 at this point. Patient was prepped and draped and general anesthesia was undertaken by Dr. Reyes. Pfannenstiel insertion was then cut down to the subcutaneous tissue and bluntly cleaned off of fascia. The fascia was then incised in the midline in the usual manner with scalp full down to the muscle layer was then bluntly dissected off the muscle layer and sharp dissection was done in the midline. This was repeated inferiorly without complications. The midline was then entered with blunt dissection until perineum was identified and was bluntly entered and then extended bluntly bladder blade was then placed. Bladder flap was then incised and developed in bladder blade was placed in her bladder flap. Midline low transverse incision was then scored on the uterus and then developed into the midline there was minimal fluid and difficult to tell but finally identified hair. No injury to infant was noted. This was then extended bluntly and child was delivered without complications. Was crying as cord was being cut. Child was handed off to awaiting screen print operator and resuscitation team. No resuscitation was required. Cord was clamped in 2 locations and cut and cord gases worse ordered. Cord blood was then obtained. Placenta was removed manually with no evidence of any retention. Uterine cavity was in swiped with wet lap sponge. This was repeated. Ring forceps were then used to graft the core of the uterine incision along with the inferior edge and a ring forceps was passed into the vaginal wall and handed off the operative theater. Uterine incision was then closed with running 0 chromic locked. He was noted that there was moderate amount of oozing and the 2nd layer was than done in an imbricating locked manner. Two areas of bleeding were noted 1 on the L left midline and 1 on the right midline. Two [id number] 0 chromic sutures were used with excellent results. Abdominal cavity was then irrigated with saline and saline was removed. We re-evaluate appear dry. Bladder flap was then closed with running 3-0 Vicryl adjust seem likely had some oozing of blood at every level. Nothing significant. Pressure was applied throughout the process with good results. Peritoneum was then closed with 2 0 Vicryl. Muscle layer was approximated with 2 2-0 Vicryl interrupted sutures. Fascia was then closed with running 1 Vicryl. Irrigation was done the subcutaneous tissue and 3 3-0 Vicryl interrupted sutures were used to approximate the wound edge. Skin was closed with running 4-0 subcuticular period Steri-Strips and dressing were applied. All sponge instrument needle counts were correct. EBL was approximately 800 cc. Mother and infant are in stable condition Complications: none Post-operative Condition: stable Disposition: Acute Care Plan for aftercare: Patient will be transferred to recovery. We will watch closely for bleeding given her multiple previous pregnancies and possibility of uterine relaxation. Certainly bleeding at this time appears to be stable usual care otherwise
[2020-12-01 11:22] VITALS: BP 135/96; PULSE 60; RESP 14; TEMP 36.3; O2SAT 98
--- NOTE | 2020-12-01 11:41 | PM.OBHP.1 ---
OB HPI History of Present Condition Chief complaint: C SECTION Narrative: Tatyana Shah is a 35 year old female G 12 PC 6 with history of infrequent care was blood pressure has been slowly increasing over the last 2 weeks. Labs have been normal. NSTs last week were normal. No other significant change. Mom noticed slight decrease in movement last week but and his T was fine. She feels like movement is been stable over the last 3-4 days. But certainly different than it had been in the past. No other leaking fluid no bleeding no pain no headaches or other change. Blood pressure was stable as an outpatient. She has otherwise been feeling well. Here for induction Evaluation Evaluation Baseline heart rate: 130 Variability: Average (6-10) Contraction Frequency (minutes): 0 Status: Category ll Laboratory results: Laboratory Tests 12/01/20 12/01/20 09:00 10:31 WBC 8.1 RBC 3.93 L Hgb 10.4 L Hct 31.2 L MCV 79.4 L MCH 26.4 MCHC 33.3 RDW 17.2 H Plt Count 202 Neut % (Auto) 59.0 Lymph % (Auto) 24.7 L [place] % (Auto) 6.8 Eos % (Auto) 8.5 H Baso % (Auto) 1.0 Neut # (Auto) 4800 Lymph # (Auto) 2000 [place] # (Auto) 600 Eos # (Auto) 700 H Baso # (Auto) 100 SARS-CoV-2 (PCR) Negative [facility] Medical History HPV (human papilloma virus) anogenital infection HSV (herpes simplex virus) anogenital infection Kidney stones Vaginal delivery (08/14/18) Surgical History Hx of gynecological procedure Hx of hemorrhoidectomy (05/30/19) Family History Mother Hypertension Grandmother Diabetes mellitus Social History marital status: household members: spouse and children occupational status: employed Smoking Status: Current every day smoker alcohol intake: current substance use type: marijuana Meds Home Medications and Allergies Home Medications Medication Instructions Recorded Confirmed Type acyclovir 400 mg PO BID PRN 04/28/18 02/15/20 History docusate sodium 100 mg PO BID #60 cap 05/30/19 02/15/20 Rx oxycodone-acetaminophen [Percocet] 1 tab PO Q4-6H PRN #30 tab MDD 6 05/30/19 02/15/20 Rx tabs ondansetron HCl [Zofran] 4 mg PO Q8H PRN #10 tab 08/05/19 02/15/20 Rx oxycodone 5 mg PO Q6H PRN #20 tab 08/05/19 02/15/20 Rx Allergies Allergy/AdvReac Type Severity Reaction Status Date / Time No Known Drug Allergies Allergy Verified 04/09/20 13:39 Exam Vital Signs (past 8 hours): - 12/01/20 10:52 12/01/20 10:57 12/01/20 11:02 Temperature 97.6 F Pulse Rate 104 H 98 H 90 Respiratory Rate 16 16 14 Blood Pressure 146/93 H 157/99 H 139/86 Pulse Oximetry 95 99 95 12/01/20 11:07 Temperature Pulse Rate 82 Respiratory Rate 14 Blood Pressure 148/85 H Pulse Oximetry 95 Oxygen Delivery Method Room Air Narrative Exam Narrative: Alert female no acute distress. HEENT exam is unremarkable. Mucous membranes moist. Lungs are clear. Heart regular rate and rhythm abdomen is gravid nontender extremities without cyanosis clubbing edema. Trace edema Objective Labs Result Diagrams: 12/01/20 09:00 Labs: Laboratory Results - last 24 hr 12/01/20 12/01/20 09:00 10:31 WBC 8.1 RBC 3.93 L Hgb 10.4 L Hct 31.2 L MCV 79.4 L MCH 26.4 MCHC 33.3 RDW 17.2 H Plt Count 202 Neut % (Auto) 59.0 Lymph % (Auto) 24.7 L [place] % (Auto) 6.8 Eos % (Auto) 8.5 H Baso % (Auto) 1.0 Neut # (Auto) 4800 Lymph # (Auto) 2000 [place] # (Auto) 600 Eos # (Auto) 700 H Baso # (Auto) 100 SARS-CoV-2 (PCR) Negative Assessment and Plan Assessment and Plan Assessment and Plan narrative: Patient originally was set up for induction. Shortly after she was admitted heart monitor decreased rate into the 70s and remained there. Despite positional changes and fluid did not change in was elected to proceed to emergent section. Consent was signed. Patient was transferred to the operative theater
[2020-12-01] MEDS: OXYCODONE IR 5 MG TABLET PO (12:33)
[2020-12-01 14:59] VITALS: BP 147/88
[2020-12-01] MEDS: ONDANSETRON 4 MG/2 ML INJ IV ×2 (15:15→21:32)
[2020-12-01] MEDS: KETOROLAC 30 MG/ML VIAL IV (17:06)
[2020-12-01] MEDS: OXYCODONE/ACETAMINOPHEN 5/325 TABLET 1 TAB PO (17:07)
[2020-12-01] MEDS: LORATADINE 10 MG TABLET PO (20:23)
[2020-12-01] MEDS: SERTRALINE 50 MG TABLET PO (21:39)
[2020-12-01] MEDS: LACTATED RINGERS 1,000 ML 100 ML IV (22:17)
[2020-12-02] MEDS: DEXTROSE 5%-LACTATED RINGERS 1,000 ML 125 ML IV (00:23)
[2020-12-02] MEDS: KETOROLAC 30 MG/ML VIAL IV ×2 (00:23→07:18)
[2020-12-02] MEDS: OXYCODONE/ACETAMINOPHEN 5/325 TABLET 1 TAB PO ×3 (00:24→22:05)
[2020-12-02] MEDS: ONDANSETRON 4 MG/2 ML INJ IV (00:24)
[2020-12-02 07:00] LABS: Add Manual Diff / Slide Review NO; Basophils Absolute Auto 0 /uL (0-100); Basophils Percent Auto 0.5 % (0-2); Eosinophils Absolute Auto 200 /uL (0-450); Eosinophils Percent Auto 1.8 % (2-4); Hemoglobin 7.4 g/dL (12.0-16.0); Lymphocytes Absolute Auto 1800 /uL (1100-4500); Lymphocytes Percent Auto 20.4 % (25-40); Mean Corpuscular HGB Conc 32.9 % (30-36); Mean Corpuscular Hemoglobin 25.7 PG (26-34); Mean Corpuscular Volume 78.3 fL (80-100); Monocytes Absolute Auto 500 /uL (0-900); Monocytes Percent Auto 5.7 % (3-14); Neutrophils Absolute Auto 6400 /uL (1500-7000); Neutrophils Percent Auto 71.6 % (50-75); Platelet Count 178 X10^3/uL (150-400); Red Blood Cell Count 2.86 X10^6/uL (4.0-5.2); Red Cell Distribution Width 17.3 % (11.6-14.8); White Blood Cell Count 8.9 X10^3/uL (4.5-11.0)
[2020-12-02 07:01] LABS: Hematocrit 22.4 % (36-46)
--- NOTE | 2020-12-02 08:32 | P.PN_ITS ---
Subjective Subjective Date Patient Seen: 12/02/20 Time Patient Seen: 08:32 Interval history: Patient overall feeling well. Pain is adequately controlled with Toradol and Tylenol. Has not been taking pain medicine. Nausea has improved. Bleeding is minimal. Incision she feels is dry. Exam Vital Signs (past 8 hours): Oxygen Delivery Method Room Air Narrative Exam Narrative: Alert female moving around the room in no acute distress Lungs are clear. Heart regular rate and rhythm. Incision is clean and dry. Extremities without edema nontender. Objective Labs Result Diagrams: 12/02/20 06:30 Labs: Laboratory Results - last 24 hr 12/01/20 12/01/20 12/01/20 09:00 09:00 10:31 WBC 8.1 RBC 3.93 L Hgb 10.4 L Hct 31.2 L MCV 79.4 L MCH 26.4 MCHC 33.3 RDW 17.2 H Plt Count 202 Neut % (Auto) 59.0 Lymph % (Auto) 24.7 L [place] % (Auto) 6.8 Eos % (Auto) 8.5 H Baso % (Auto) 1.0 Neut # (Auto) 4800 Lymph # (Auto) 2000 [place] # (Auto) 600 Eos # (Auto) 700 H Baso # (Auto) 100 SARS-CoV-2 (PCR) Negative Blood Type A Positive Antibody Screen Negative 12/02/20 06:30 WBC 8.9 RBC 2.86 L Hgb 7.4 L Hct 22.4 L MCV 78.3 L MCH 25.7 L MCHC 32.9 RDW 17.3 H Plt Count 178 Neut % (Auto) 71.6 Lymph % (Auto) 20.4 L [place] % (Auto) 5.7 Eos % (Auto) 1.8 L Baso % (Auto) 0.5 Neut # (Auto) 6400 Lymph # (Auto) 1800 [place] # (Auto) 500 Eos # (Auto) 200 Baso # (Auto) 0 SARS-CoV-2 (PCR) Blood Type Antibody Screen [facility] Medical History HPV (human papilloma virus) anogenital infection HSV (herpes simplex virus) anogenital infection Kidney stones Vaginal delivery (08/14/18) Surgical History Hx of gynecological procedure Hx of hemorrhoidectomy (05/30/19) Family History Mother Hypertension Grandmother Diabetes mellitus Social History marital status: household members: spouse and children occupational status: employed Smoking Status: Former smoker alcohol intake: current substance use type: marijuana Assessment & Plan Assessment & Plan narrative: Postop day 1. With significant anemia. Patient on iron. Will need to go home on that. No other changes. Routine care. Follow- up and probable discharge tomorrow
[2020-12-02] MEDS: PRENATAL VIT,CALC/IRON/FOLIC 1 TABLET 1 TAB PO (11:17)
[2020-12-02] MEDS: FERROUS SULFATE 325 MG TABLET PO (11:17)
[2020-12-02] MEDS: SERTRALINE 50 MG TABLET PO (22:05)
[2020-12-02] MEDS: IBUPROFEN 600 MG TABLET PO (22:06)
[2020-12-03] MEDS: IBUPROFEN 600 MG TABLET PO ×4 (03:47→21:34)
--- NOTE | 2020-12-03 08:41 | PM.PN.1 ---
Subjective Subjective Date Patient Seen: 12/03/20 Time Patient Seen: 08:42 Interval history: Patient still having moderate amount of pain. Feeling like she is not able to do everything she needs to do at home. Does not want to be discharged today. Minimal bleeding today. Did have some clots yesterday. Pain is moderately well controlled. She is able to get up move around. Breast-feeding is going okay. No other change. Exam Vital Signs (past 8 hours): Oxygen Delivery Method Room Air Narrative Exam Narrative: Alert female lying in bed no acute distress Lungs are clear. Heart regular rate and rhythm. Abdomen uterus is firm incision is clean dry extremities without cyanosis clubbing edema. No calf tenderness Objective Labs Result Diagrams: 12/02/20 06:30 [facility] Medical History HPV (human papilloma virus) anogenital infection HSV (herpes simplex virus) anogenital infection Kidney stones Vaginal delivery (08/14/18) Surgical History Hx of gynecological procedure Hx of hemorrhoidectomy (05/30/19) Family History Mother Hypertension Grandmother Diabetes mellitus Social History marital status: household members: spouse and children occupational status: employed Smoking Status: Former smoker alcohol intake: current substance use type: marijuana Assessment & Plan Assessment & Plan narrative: Postop day 2. Slow recovery. Part of that is her fatigue secondary to her significant blood loss some part of that his sister her pain which she has been medicating probably on not consistent basis which is been an issue. She has no other significant changes. I suspect she will be discharged home tomorrow. We discussed expectations. She understands questions answered
[2020-12-03] MEDS: FERROUS SULFATE 325 MG TABLET PO (08:58)
[2020-12-03] MEDS: DOCUSATE 250 MG CAPSULE PO (08:58)
[2020-12-03] MEDS: PRENATAL VIT,CALC/IRON/FOLIC 1 TABLET 1 TAB PO (08:58)
[2020-12-03 15:00] VITALS: BP 137/91; PULSE 75; RESP 17; TEMP 36.8
[2020-12-04] MEDS: ACETAMINOPHEN 325 MG TABLET 650 MG PO ×2 (01:59→09:45)
[2020-12-04] MEDS: IBUPROFEN 600 MG TABLET PO ×2 (03:28→09:44)
--- NOTE | 2020-12-04 08:46 | P.DS_ITS ---
Discharge Providers Provider Date of admission: 12/01/20 08:05 Discharge Date: 12/04/20 Primary care physician: Davon Berg MD Consults: 12/01/20 12:28 Consult to [employer] Routine Comment: Discharge provider: [facility] Allred MD Summary Hospital Course Date Patient Seen: 12/04/20 Time Patient Seen: 08:47 Diagnoses: Term gestation Gestational hypertension Caesarean section, primary Anemia of Hospital Course: Patient manage the hospital for induction. Baby showed spontaneous T-cell. Emergency done. Moderate blood loss. Underlying anemia. Patient did well was discharged home on day 4. Prolonged hospitalization due to hyperbilirubinemia in . Patient tolerating Motrin for pain. Patient is stooling and urinating without difficulty tolerating p.o. without difficulty. Borderline elevated blood pressures. Peripartum Data Delivery Method: Section complications: none Status at Discharge Cognitive/behavioral status at discharge: oriented Functional status at discharge: independent ambulation Overall status at discharge: patient is progressing back to baseline Time Spent with Patient Time attestation: Total time spent providing and/or coordinating discharge services: 35 minutes Objective Labs Result Diagrams: 12/02/20 06:30 Exam Vital Signs (past 8 hours): Oxygen Delivery Method Room Air Narrative Exam Narrative: Patient appears pale Alert and oriented x3, afebrile, vital signs are stable Chest: Clear to auscultation without wheezes rhonchi or crackles Cor: Regular rate and rhythm without any murmur Abdomen: Positive bowel sounds, soft, uterus well below the umbilicus. Incis ion clean and dry and nontender Extremities: Trace edema. DTRs trace. No clonus Discharge Plan Discharge Plan Patient Disposition: Home Discharge orders & Medications Prescriptions: New ibuprofen 600 mg Tablet 600 mg PO Q6HR PRN (Reason: Fever/Mild Pain (1-3)) Qty: 60 RF: 1 Continued acyclovir 200 mg capsule 400 mg PO BID PRN (Reason: Outbreak) RF: 0 docusate sodium 100 mg capsule 100 mg PO BID Qty: 60 RF: 0 Discontinued oxycodone-acetaminophen [Percocet] 5-325 mg tablet 1 tab PO Q4-6H MDD 6 tabs PRN (Reason: post operative pain) Qty: 30 RF: 0 oxycodone 5 mg tablet 5 mg PO Q6H PRN (Reason: pain) Qty: 20 RF: 0 ondansetron HCl [Zofran] 4 mg tablet 4 mg PO Q8H PRN (Reason: nausea and vomiting) Qty: 10 RF: 0 Follow up/Referrals: Davon Berg MD [Primary Care Provider] - Discharge Data Primary Care Provider: Davon Berg
[2020-12-04] MEDS: FERROUS SULFATE 325 MG TABLET PO (09:44)
[2020-12-04] MEDS: PRENATAL VIT,CALC/IRON/FOLIC 1 TABLET 1 TAB PO (09:44)
== END 2020-12-04 11:05 | disposition home or self-care (01) | DRG 787 ==
PROVIDERS: Admitting Provider Family Medicine; PCP Family Medicine; Referring Provider Family Medicine; Visit Provider Family Medicine
PROC: 10D00Z1 Extraction of Products of Conception, Low, Open Approach (ICD-10-PCS; CPT 59514; principal; 2020-12-01 09:30)
DX: O76 Abnormality in fetal heart rate and rhythm complicating labor and delivery (principal); O98.32 Other infections with a predominantly sexual mode of transmission complicating childbirth; A60.09 Herpesviral infection of other urogenital tract; O99.891 Other specified diseases and conditions complicating pregnancy; R03.0 Elevated blood-pressure reading, without diagnosis of hypertension; Z3A.39 39 weeks gestation of pregnancy; Z37.0 Single live birth; O99.02 Anemia complicating childbirth; D50.0 Iron deficiency anemia secondary to blood loss (chronic); O99.334 Smoking (tobacco) complicating childbirth; F17.210 Nicotine dependence, cigarettes, uncomplicated; Z20.822 Contact with and (suspected) exposure to COVID-19
CPT/HCPCS: 36415; 59050; 76815; 85025; 86850; 86900; 86901; 87635; C9803; G0379; J0131; J0330; J1170; J1885; J2405; J2704; J3010; J7121; J7613

== ENCOUNTER 2021-04-15 17:52 | Emergency (ER) | payer OTHER, MEDICAID, SELFPAY ==
[2021-04-15 17:59] VITALS: BP 157/104; PULSE 77; RESP 20; TEMP 36.3; O2SAT 97
[2021-04-15 19:00] VITALS: PULSE 101; RESP 26; O2SAT 93
--- NOTE | 2021-04-15 19:11 | ED_ITS ---
HPI - General Adult General Chief complaint: Shortness of Breath/Dyspnea Stated complaint: O2 sats are dropping Time Seen by Provider: 04/15/21 17:57 Source: patient Mode of arrival: Ambulatory History of Present Illness HPI narrative: 35-year-old female. Had a recent admission to an outside facility for pneumonia. Subsequent discharge. She states she was not sent home with any antibiotics. Not sent home with any steroids. She was told that she was going to get these medications. She had amoxicillin at home. She has taken approximately 3 doses of this medication. She also has a home pulse oximeter. She states she is becoming short of breath and is hypoxic at home. Related Data Home Medications Medication Instructions Recorded Confirmed acyclovir 200 mg capsule 400 mg PO BID PRN 04/28/18 12/02/20 Previous Rx's Medication Instructions Recorded docusate sodium 100 mg capsule 100 mg PO BID #60 cap 05/30/19 ibuprofen 600 mg tablet 600 mg PO Q6HR PRN #60 tab 12/04/20 prednisone 20 mg tablet 20 mg PO DAILY 6 Days #6 tab 04/15/21 Allergies Allergy/AdvReac Type Severity Reaction Status Date / Time No Known Drug Allergies Allergy Verified 04/09/20 13:39 Review of Systems Constitutional Constitutional: Denies fever(s) Cardiovascular Cardiovascular: Reports system reviewed and no additional complaints, except as documented Respiratory Respiratory: Reports as per HPI and Reports system reviewed and no additional complaints, except as documented Gastrointestinal Gastrointestinal: Reports system reviewed and no additional complaints, except as documented Integumentary/Breasts Skin/Breast: Reports system reviewed and no additional complaints, except as documented Hematologic/Lymphatic On Anticoagulants: No Patient History Medical History HPV (human papilloma virus) anogenital infection HSV (herpes simplex virus) anogenital infection Kidney stones Vaginal delivery (08/14/18) Surgical History Hx of gynecological procedure Hx of hemorrhoidectomy (05/30/19) Family History Mother Hypertension Grandmother Diabetes mellitus Social History marital status: household members: spouse and children occupational status: employed Smoking Status: Former smoker alcohol intake: current substance use type: marijuana Smoking Status: Former smoker tobacco type: vaping alcohol intake frequency: 0-2 drinks per day Substance Use Type: marijuana Exam Initial Vital Signs Initial Vital Signs: Vital Signs Temperature 97.4 F L 04/15/21 17:59 Pulse Rate 77 04/15/21 17:59 Respiratory Rate 20 04/15/21 17:59 Blood Pressure 157/104 H 04/15/21 17:59 Pulse Oximetry 97 04/15/21 17:59 HENMT Head: normal to inspection and normocephalic Resp Effort & Inspection: normal respiratory effort, not labored and not tachypneic Auscultation: clear to auscultation bilaterally Cardio Rate: regular rate Rhythm: regular rhythm GI Inspection: normal to inspection Skin General: no rashes or lesions noted Neuro General: patient alert, patient awake and moves all extremities Psych Appearance: grossly normal and well kempt Course Orders Ordered: Discontinued Medications Prednisone (Prednisone 20 Mg Tablet) 20 mg PO NOW ONE Stop: 04/15/21 19:46 Last Admin: 04/15/21 20:00 Dose: 20 mg Documented by: DOLORES Vital Signs Vital signs: Vital Signs - 8 hr 04/15/21 17:59 04/15/21 19:00 04/15/21 19:17 Temperature 97.4 F L Pulse Rate 77 101 H 74 Respiratory Rate 20 26 H Blood Pressure 157/104 H Pulse Oximetry 97 93 95 04/15/21 19:30 Temperature Pulse Rate 71 Respiratory Rate Blood Pressure Pulse Oximetry 96 Medical Decision Making [facility] Narrative Medical decision making narrative: Respiratory distress. Is afebrile. Lungs are clear. Not hypoxic. Ambulated around the emergency department without becoming hypoxic. She has 7 days of amoxicillin at home. I told her that this would be appropriate for any pneumonia. Will also give her prescription for some steroids. Patient asked for home oxygen however there is no reason for thi s. We would be unable to set up had in the emergency department anyway and she is not hypoxic and not tachypneic. Will discharge home with a prescription for prednisone. Discharge Plan Departure Patient Disposition: Home Clinical Impression: Pneumonia Instructions: DI for Pneumonia -- Adult Activity Restrictions/Additional Instructions: Continue to take the amoxicillin that you have at home. That should take care of any bacterial respiratory infection. You were diagnosed with rhino virus during your visit to [facility]. This is a virus that can also cause respiratory issues. This type of infection does not require antibiotics and should improve on its own. Take the steroids as directed. Contact your primary provider for follow-up. Prescriptions: New prednisone 20 mg tablet 20 mg PO DAILY 6 Days Qty: 6 RF: 0 No Action acyclovir 200 mg capsule 400 mg PO BID PRN (Reason: Outbreak) RF: 0 docusate sodium 100 mg capsule 100 mg PO BID Qty: 60 RF: 0 ibuprofen 600 mg Tablet 600 mg PO Q6HR PRN (Reason: Fever/Mild Pain (1-3)) Qty: 60 RF: 1 Referrals: Davon Berg MD [Primary Care Provider] -
--- NOTE | 2021-04-15 19:13 | PC.NURSE ---
Ambulation trial: O2 sat dropped to 93%, pt begins coughing and wheezing with exertion. She states that with additional exertion her sats drop to 87% like when she gets out of the shower. informed
[2021-04-15 19:17] VITALS: PULSE 74; O2SAT 95
[2021-04-15 19:30] VITALS: PULSE 71; O2SAT 96
[2021-04-15 20:00] VITALS: BP 144/98; PULSE 70; O2SAT 96
[2021-04-15] MEDS: predniSONE 20 MG TABLET PO (20:00)
== END 2021-04-15 20:09 | disposition home or self-care (01) ==
PROVIDERS: Emergency Provider Emergency Medicine; PCP Family Medicine
DX: J18.9 Pneumonia, unspecified organism (principal)
CPT/HCPCS: 99283

== ENCOUNTER 2021-12-16 17:37 | Emergency (ER) | payer OTHER, MEDICAID, SELFPAY ==
[2021-12-16 17:53] VITALS: BP 120/71; PULSE 86; RESP 18; TEMP 35.7; O2SAT 96; BMI 41.0
[2021-12-16] MEDS: ONDANSETRON 4 MG/2 ML INJ IV (18:19)
[2021-12-16] MEDS: OXYCODONE/ACETAMINOPHEN 5/325 TABLET 1 TAB PO (18:19)
[2021-12-16 18:20] LABS: Appearance Urine UA CLOUDY; Bilirubin Urine UA 2+ (NEGATIVE); Color Urine UA BROWN; Glucose Urine UA TRACE g/dL (Negative); Ketones Urine UA TRACE (NEGATIVE); Leukocyte Esterase Urine UA TRACE (NEGATIVE); Nitrite Urine UA NEGATIVE (Negative); Occult Blood Urine UA 3+ (Negative); Protein Urine UA 3+ (Negative); Specific Gravity Urine UA 1.025 (1.000-1.035); Urobilinogen Urine UA 0.2 E.U./dL (0.2); pH Urine UA 6.5 (4.5-8.0)
[2021-12-16 18:22] LABS: Bacteria Urine None Seen; Culture Indicated Urine Cult Not Indicated; Ictotest Urine Negative (Negative); RBC Urine 30-100/HPF (0-5/HPF); Squamous Epithelial Cell Urine 5-10 /HPF (0-5/HPF); Transitional Epi Cells Urine 1-5/HPF (0-5/HPF); WBC Urine 1-5/HPF (0-5/HPF)
[2021-12-16 18:24] LABS: Add Manual Diff / Slide Review NO; Basophils Absolute Auto 100 /uL (0-100); Basophils Percent Auto 1.1 % (0-2); Eosinophils Absolute Auto 400 /uL (0-450); Eosinophils Percent Auto 3.4 % (2-4); Hematocrit 37.6 % (36-46); Hemoglobin 12.9 g/dL (12.0-16.0); Lymphocytes Absolute Auto 2600 /uL (1100-4500); Lymphocytes Percent Auto 22.2 % (25-40); Mean Corpuscular HGB Conc 34.2 % (30-36); Mean Corpuscular Hemoglobin 29.5 PG (26-34); Mean Corpuscular Volume 86.3 fL (80-100); Monocytes Absolute Auto 800 /uL (0-900); Monocytes Percent Auto 6.4 % (3-14); Neutrophils Absolute Auto 8000 /uL (1500-7000); Neutrophils Percent Auto 66.9 % (50-75); Platelet Count 310 X10^3/uL (150-400); Red Blood Cell Count 4.36 X10^6/uL (4.0-5.2)
[2021-12-16 18:36] LABS: Alanine Aminotransferase 15 IU/L (<35); Albumin 4.7 g/dL (3.5-5.0); Albumin Globulin Ratio 1.6 (1.0-2.8); Alkaline Phosphatase 25 U/L (38-126); Aspartate Aminotransferase 29 IU/L (14-36); BUN Creatinine Ratio 21.5 (6-22); Bilirubin Total 0.6 mg/dL (0.2-1.3); Blood Urea Nitrogen 20 mg/dL (7-17); Calcium 9.6 mg/dL (8.4-10.2); Carbon Dioxide 27 mmol/L (22-32); Chloride 105 mmol/L (98-107); Estimated Glomerular Filt Rate > 60 mL/min (>60); Globulin 2.9 g/dL (1.7-4.1); Glucose 88 mg/dL (70-100); Lipase 430 U/L (23-300); Potassium 4.4 mmol/L (3.4-5.1); Sodium 140 mmol/L (137-145); Total Protein 7.6 g/dL (6.3-8.2)
[2021-12-16 18:37] LABS: HEMOLYSIS 89 (0-50)
--- NOTE | 2021-12-16 22:36 | DI.RAD.S_ITS ---
PROCEDURE: XR KUB INDICATIONS: Hematuria TECHNIQUE: One view of the abdomen acquired. COMPARISON: [facility], CT, CT KUB, 11/26/2021, 21:27. FINDINGS: Surgical changes and devices: None. Bowel: Bowel gas pattern is normal. Soft tissues: No definite radiopaque renal or ureteral stones identified. Bones: No suspicious bony lesions. IMPRESSION: 1. No definite radiopaque renal or ureteral stones identified. Dictated by: Josue Briggs M.D. on 12/17/2021 at 0:05 Approved by: Josue Briggs M.D. on 12/17/2021 at 0:06
--- NOTE | 2021-12-16 22:42 | ED.BACK ---
HPI - Back Pain/Injury General Chief Complaint: Urogenital-Female Stated Complaint: kidney pain Time Seen by Provider: 12/16/21 19:44 Source: patient History of Present Illness HPI Narrative: Patient here for right flank pain. She is postop day 1 status post lithotripsy and possible ureteral stent that was done yesterday at [facility] will by Dr. Pappas, urology. Patient states has been painful since the procedure. She does not think she had a ureteral stent placed. X-ray is pending. Pain did improve with Percocet given here. Patient was sleeping on my arrival. The pain has returned. She states she usually gets Dilaudid for pain control. No fever chills. Patient is urinating. No dysuria or painful urination. No fever. Nontender on palpation of the right flank. Related Data Home Medications Medication Instructions Recorded Confirmed acyclovir 200 mg capsule 400 mg PO BID PRN Outbreak 04/28/18 12/02/20 Previous Rx's Medication Instructions Recorded docusate sodium 100 mg capsule 100 mg PO BID prevent constipation 05/30/19 from pain meds #60 caps ibuprofen 600 mg tablet 600 mg PO Q6HR PRN Fever/Mild Pain 12/04/20 (1-3) #60 tabs Allergies Allergy/AdvReac Type Severity Reaction Status Date / Time No Known Drug Allergies Allergy Verified 04/09/20 13:39 Review of Systems Review of Systems Narrative: GENERAL: Denies chills, fatigue, malaise, fever, sweats. HEENT: Denies sinus pain, ear pain, sore throat RESPIRATORY: Denies dyspnea, cough CARDIOVASCULAR: Denies chest pain, palpitations GASTROINTESTINAL: Denies nausea, vomiting, abdominal pain, positive for flank pain : Denies dysuria, frequency, positive for hematuria MUSCULOSKELETAL: denies muscle or bony pain SKIN: Denies rash, skin lesions NEUROLOGIC: Denies weakness, numbness ROS Unobtainable: All systems reviewed & are unremarkable except as noted in HPI and below Patient History Medical History (Updated 12/17/21 @ 00:38 by Doug Mclean MD) HPV (human papilloma virus) anogenital infection HSV (herpes simplex virus) anogenital infection Kidney stones Vaginal delivery (08/14/18) Surgical History Hx of gynecological procedure Hx of hemorrhoidectomy (05/30/19) Family History Mother Hypertension Grandmother Diabetes mellitus Social History marital status: household members: spouse and children occupational status: employed Smoking Status: Former smoker alcohol intake: current substance use type: marijuana Smoking Status: Former smoker tobacco type: vaping alcohol intake frequency: 0-2 drinks per day Substance Use Type: marijuana Exam Narrative Exam Narrative: GENERAL: in no distress, not toxic not dyspneic. Patient able to move in her bed slipped over on her abdomen or her back without any difficulty. HEAD: Normocephalic. EYES: Pupils equal round No scleral icterus. ENT: Mucous membranes moist. NECK: Trachea midline. CARDIOVASCULAR: Regular rate and rhythm without murmurs RESPIRATORY: Clear to auscultation. Breath sounds equal bilaterally. No wheezes, rales, or rhonchi. GASTROINTESTINAL: Abdomen soft, non-tender, no peritoneal signs bowel sounds are present. EXTREMITIES: No gross deformities. BACK: No flank tenderness. No CVA tenderness NEURO: AOx4. SKIN: Warm and dry PSYCH: Not anxious, is cooperative Initial Vital Signs Initial Vital Signs: Vital Signs Temperature 96.3 F L 12/16/21 17:53 Pulse Rate 86 12/16/21 17:53 Respiratory Rate 18 12/16/21 17:53 Blood Pressure 120/71 12/16/21 17:53 Pulse Oximetry 96 12/16/21 17:53 Oxygen Delivery Method 12/16/21 17:53 Course Course Course Narrative: No new issues during course of stay Orders Ordered: ED Orders 12/16/21 22:36 XR KUB Stat Discontinued Medications Hydromorphone HCl (Hydromorphone 1 Mg Inj) 0.5 mg IV NOW ONE Stop: 12/16/21 22:43 Last Admin: 12/16/21 23:17 Dose: 0.5 mg Documented By: GIGI Ketorolac Tromethamine (Ketorolac 30 Mg/Ml Vial) 15 mg IV NOW ONE Stop: 12/17/21 00:37 Last Admin: 12/17/21 00:52 Dose: 15 mg Documented By: DAWN Ondansetron HCl (Ondansetron 4 Mg/2 Ml Inj) 4 mg IV NOW ONE Stop: 12/16/21 18:15 Last Admin: 12/16/21 18:19 Dose: 4 mg Documented By: SYLVIA Oxycodone/Acetaminophen (Oxycodone/Acetaminophen 5/325 Tablet) 1 tab PO NOW ONE Stop: 12/16/21 18:16 Last Admin: 12/16/21 18:19 Dose: 1 tab Documented By: SYLVIA Reevaluation(s) Reevaluation #1: Awoke patient again to review results. Patient was sleeping comfortably. She would like to have Toradol just in case for at home. May have had colicky pain that she has had before she states. 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 Time: 00:37 Vital Signs Vital signs: Vital Signs - 8 hr 12/17/21 00:55 Pulse Rate 62 Blood Pressure 141/65 H Pulse Oximetry 99 Oxygen Delivery Method Room Air MDM - Back Pain/Injury Differential Diagnosis Differential diagnosis: Likely other (Pyelonephritis/kidney stone/renal colic/ureteral stones/UTI) Lab Data Result diagrams: 12/16/21 18:12 12/16/21 18:12 Labs: Lab Results 12/16/21 12/16/21 12/16/21 Range/Units 17:25 18:12 18:12 WBC 12.0 H (4.5-11.0) X10^3/uL RBC 4.36 (4.0-5.2) X10^6/uL Hgb 12.9 (12.0-16.0) g/dL Hct 37.6 (36-46) % MCV 86.3 (80-100) fL MCH 29.5 (26-34) PG MCHC 34.2 (30-36) % RDW 13.0 (11.6-14.8) % Plt Count 310 (150-400) X10^3/uL Neut % (Auto) 66.9 (50-75) % Lymph % (Auto) 22.2 L (25-40) % Piatt % (Auto) 6.4 (3-14) % Eos % (Auto) 3.4 (2-4) % Baso % (Auto) 1.1 (0-2) % Neut # (Auto) 8000 H (6538-3163) /uL Lymph # (Auto) 2600 (5487-6990) /uL Piatt # (Auto) 800 (0-900) /uL Eos # (Auto) 400 (0-450) /uL Baso # (Auto) 100 (0-100) /uL Sodium 140 (137-145) mmol/L Potassium 4.4 (3.4-5.1) mmol/L Chloride 105 (98-107) mmol/L Carbon Dioxide 27 (22-32) mmol/L BUN 20 H (7-17) mg/dL Creatinine 0.93 (0.52-1.04) mg/dL Estimated GFR > 60 (>60) mL/min BUN/Creatinine Ratio 21.5 (6-22) Glucose 88 (70-100) mg/dL Calcium 9.6 (8.4-10.2) mg/dL Total Bilirubin 0.6 (0.2-1.3) mg/dL AST 29 (14-36) IU/L ALT 15 (<35) IU/L Alkaline Phosphatase 25 L (38-126) U/L Total Protein 7.6 (6.3-8.2) g/dL Albumin 4.7 (3.5-5.0) g/dL Globulin 2.9 (1.7-4.1) g/dL Albumin/Globulin Ratio 1.6 (1.0-2.8) Lipase 430 H (23-300) U/L Urine Color Brown Urine Appearance Cloudy Urine pH 6.5 (4.5-8.0) Ur Specific [place] 1.025 (1.000-1.035) Urine Protein 3+ H (Negative) Urine Glucose (UA) Trace H (Negative) g/dL Urine Ketones Trace H (NEGATIVE) Urine Occult Blood 3+ H (Negative) Urine Nitrate Negative (Negative) Urine Bilirubin 2+ H (NEGATIVE) Ur Bilirubin Confirm Negative (Negative) Urine Urobilinogen 0.2 (0.2) E.U./dL Ur Leukocyte Esterase Trace H (NEGATIVE) Urine RBC 30-100/hpf H (0-5/HPF) Urine WBC 1-5/hpf (0-5/HPF) Ur Squamous Epith Cells 5-10 /hpf H (0-5/HPF) Ur Transition Epith Cell 1-5/hpf (0-5/HPF) Urine Bacteria None seen (None) Ur Culture Indicated? Cult not indicated Point of Care Testing Test Results Negative Imaging Data X-ray KUB: Radiologist's Impression: [address] [address] XRay Report Signed Patient: Tatyana Shah MR#: [id number] : 1985 Acct:[id number] Age/Sex: 36 / F Date of Service: 12/16/21 Loc: ED Accession Number: [id number] ?? Procedure: XR KUB Ordering Provider: Doug Mclean MD PROCEDURE:? XR KUB ? INDICATIONS:? Hematuria ? TECHNIQUE:? One view of the abdomen acquired.? ? COMPARISON:? [facility], CT, CT KUB, 11/26/2021, 21:27. ? FINDINGS:? ? Surgical changes and devices:? None.? ? Bowel:? Bowel gas pattern is normal.? ? Soft tissues:? No definite radiopaque renal or ureteral stones identified. ? Bones:? No suspicious bony lesions.? ? IMPRESSION:? ? 1. No definite radiopaque renal or ureteral stones identified. ? ? Dictated by: Josue Briggs M.D. on 12/17/2021 at 0:05 ? ? Approved by: Josue Briggs M.D. on 12/17/2021 at 0:06 ? MDM Narrative Medical decision making narrative: Appropriate for discharge home. Pain control at time of discharge. 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 No antibiotics indicated this time. Return precautions reviewed with her. Likely renal or ureteral colic from procedure. She states she has had that pain before. Not toxic or septic. She desires discharge home. Discharge Plan Departure Patient Disposition: Home Clinical Impression: Post-op pain Instructions: DI for Kidney Stones Activity Restrictions/Additional Instructions: No driving or operating machinery tonight. See family doctor or urologist in a week for recheck. May continue home pain medication. Return if worse if any questions or concerns. Prescriptions: No Action acyclovir 200 mg capsule 400 mg PO BID PRN (Reason: Outbreak) Label Comments: take 2 tablets by mouth twice a day if needed. patient states takes more as preventative docusate sodium 100 mg capsule 100 mg PO BID Qty: 60 0RF ibuprofen 600 mg Tablet 600 mg PO Q6HR PRN (Reason: Fever/Mild Pain (1-3)) Qty: 60 1RF Referrals: Davon Berg MD [Primary Care Provider] - Visit Report Forms: Patient Portal/API
[2021-12-16] MEDS: HYDROMORPHONE 1 MG INJ 0.5 MG IV (23:17)
[2021-12-17] MEDS: KETOROLAC 30 MG/ML VIAL 15 MG IV (00:52)
[2021-12-17 00:55] VITALS: BP 141/65; PULSE 62; O2SAT 99
== END 2021-12-17 01:03 | disposition home or self-care (01) ==
PROVIDERS: Emergency Medicine; Emergency Provider Emergency Medicine; PCP Family Medicine
DX: G89.18 Other acute postprocedural pain (principal)
CPT/HCPCS: 36415; 74018; 80053; 81001; 81025; 83690; 85025; 96374; 96375; 99284; J1170; J1885; J2405

== ENCOUNTER → 2022-04-23 12:57 | Outpatient (CLI) | payer OTHER, MEDICAID, SELFPAY ==
--- NOTE | 2022-04-23 | DI.US.S_ITS ---
PROCEDURE: US PELVIC COMPLETE INDICATIONS: POSITIVE HCG; RIGHT PELVIC PAIN; POSSIBLE ECTOPIC TECHNIQUE: Real-time scanning was performed of the pelvic organs, with image documentation. Additional endovaginal scanning was necessary due to incomplete visualization of the adnexal and endometrial structures by transabdominal scanning. COMPARISON: None. FINDINGS: Uterus: Uterus is anteverted and at the upper limits of normal in size at 10.1 x 6.2 x 8.0 cm. The myometrium is homogeneous. Within the fundal endometrium, there is a thin flat oblong thin-walled fluid collection measuring 1.4 x 0.4 x 1.9 cm. No surrounding hyperechoic decidual response. The cervix is closed. The endometrium is otherwise thickened measuring 16.1 mm. Ovaries: The right ovary measures 4.3 x 4.1 x 2.7 cm, with a calculated ovarian volume of 24.5 cc. The left ovary measures 3.4 x 2.2 x 2.1 cm, with a calculated ovarian volume of 8.5 cc. There are two dominant complex cysts in the right ovary, one with fine septations measuring 1.5 x 1.3 x 1.8 cm. The other with low level internal echoes measuring 2.5 x 1.7 x 1.9 cm. No significant vascularity around or within either cyst. Normal vascularity to the solid portion of the right ovary. No other right adnexal mass. The left ovary demonstrates several peripherally displaced subcentimeter follicles. No left adnexal masses are seen. Other: No pathologic free abdominal or pelvic fluid. IMPRESSION: 1. Mildly thickened endometrium with a nonspecific endometrial fluid collection. This may indicate early or pseudo gestational sac indicating extra uterine . 2. There is no secondary sign or direct evidence of a pelvic ectopic . Continued follow-up of serial beta HCG levels. If these continue to rise, repeat imaging in 2-3 weeks is recommended. 3. There are two complex right ovarian dominant follicles without significant vascularity. Either may be hemorrhagic and potentially symptomatic. 4. No free pelvic fluid. We strive to produce accurate, complete, and clear reports of imaging services. To assist us in improving patient care, this report was composed using standard report templates and voice recognition software. Therefore, it may contain abnormal punctuation, insertions and/or omissions. Occasional wrong-word or sound-alike substitutions may occur. Though we review the report and make efforts to correct it, we do recommend that the report be read carefully in proper context to recognize any text inaccuracies. Dictated by: Belinda Castanon M.D. on 04/23/2022 at 17:55 Approved by: Belinda Castanon M.D. on 04/23/2022 at 18:01
== END ==
PROVIDERS: PCP Family Medicine; Referring Provider Family Medicine; Visit Provider Family Medicine
DX: N91.2 Amenorrhea, unspecified (principal); R93.89 Abnormal findings on diagnostic imaging of other specified body structures
CPT/HCPCS: 76830; 76856; 93976

== ENCOUNTER → 2022-06-09 15:25 | Outpatient (CLI) | payer OTHER, MEDICAID, SELFPAY ==
--- NOTE | 2022-06-09 15:28 | DI.US.S_ITS ---
PROCEDURE: US OB <= 14 WEEKS FETUS INDICATIONS: Encounter for supervision of normal OUTSIDE/PRIOR DATING DATA: Last menstrual period (LMP): 03/17/2022. LMP-based estimated date of delivery (NANCY): 12/22/2022. First dating scan (date and location): 06/09/2022. Estimated date of delivery (NANCY) from first dating scan: 12/18/2022. TECHNIQUE: Real-time scanning was performed of the fetus and maternal pelvic organs, with image documentation. Endovaginal scanning was also performed to better visualize the fetus and maternal ovaries. COMPARISON: [facility], , OB <= 14 WEEKS FETUS, 04/14/2020, 9:51. FINDINGS: Single to living intrauterine . Biometric measurements: BPD: 1.8 cm, 12 weeks 6 days HC: 7 cm, 12 weeks 6 days AC: 5.5 cm, 12 weeks 3 days FL: 0.8 cm, 12 weeks 2 days Estimated gestational age 12 weeks 4 days based on today's ultrasound. Subjectively normal amniotic fluid. Heart rate: 155 bpm. Maternal organs: Ovaries are not seen. IMPRESSION: [place] living intrauterine at 12 weeks 4 days based on today's ultrasound. We strive to produce accurate, complete, and clear reports of imaging services. To assist us in improving patient care, this report was composed using standard report templates and voice recognition software. Therefore, it may contain abnormal punctuation, insertions and/or omissions. Occasional wrong-word or sound-alike substitutions may occur. Though we review the report and make efforts to correct it, we do recommend that the report be read carefully in proper context to recognize any text inaccuracies. Dictated by: Robi Cason M.D. on 06/09/2022 at 16:09 Approved by: Robi Cason M.D. on 06/09/2022 at 16:28
== END ==
PROVIDERS: PCP Family Medicine; Referring Provider Family Medicine; Visit Provider Family Medicine
DX: Z34.81 Encounter for supervision of other normal pregnancy, first trimester (principal); Z3A.12 12 weeks gestation of pregnancy
CPT/HCPCS: 76801

== ENCOUNTER → 2022-08-13 15:11 | Outpatient (CLI) | payer OTHER, MEDICAID, SELFPAY ==
--- NOTE | 2022-08-13 15:45 | DI.US.S_ITS ---
PROCEDURE: US OB >= 14 WEEKS FETUS INDICATIONS: ANATOMY OUTSIDE/PRIOR DATING DATA: Last menstrual period (LMP): 03/17/2022. LMP-based estimated date of delivery (NANCY): 12/22/2022. First dating scan (date and location): 06/09/2022. Estimated date of delivery (NANCY) from first dating scan: 12/18/2022. The calculations are made using the working NANCY of 12/18/2022. TECHNIQUE: Real-time scanning was performed of the fetus, with image documentation and biometric measurements. Endovaginal scanning: None COMPARISON: [facility], OB >= 14 WEEKS FETUS, 07/22/2020, 11:00. FINDINGS: General: A single living intrauterine gestation is present. Presentation: Breech. Placenta: Placental position is anterior , without previa. Amniotic fluid index: 17.9 cm, normal range is 5-24 cm. Single deepest vertical pocket is 5.7 cm. heart rate: 160 beats per minute. Maternal cervical canal: 4.7 cm long. Normal lower limit is 2.5 cm. biometrics: Biparietal diameter: 5.0 cm, 21 week 1 day Head circumference: 17.9 cm, 20 week 2 day Abdominal circumference: 19.1 cm, 23 week 6 day Femur length: 3.4 cm, 20 week 4 day Clinically estimated gestational age: 21 week 6 day Composite gestational age from present scan: 21 week 3 day Estimated weight and percentile: 479 g, 59th percentile Anatomic survey: Neuro: Ventricles are non-dilated at less than 10 mm. Cisterna magna is normal at 3-11 mm. Cerebellum is normal in size and morphology. Nuchal skin fold: Normal at less than 6 mm between 14-21 weeks gestational age. Face: Nose and lips, facial profile are normal. Spine: Not well visualized Heart: Not well visualized Diaphragm: Not well visualized Stomach: Left-sided stomach is present. Kidneys: Not well visualized Cord: 3-vessel cord has orthotopic insertion. Bladder: Normal in size. Extremities: All 4 extremities identified. IMPRESSION: Single live intrauterine consistent with a 21 week 3 day gestation by current ultrasound. Limited anatomic survey. spine, cardiac, diaphragm and kidneys were not well visualized. Consider follow-up Approved by: Nahum Dunlap M.D. on 08/13/2022 at 17:49
== END ==
PROVIDERS: PCP Family Medicine; Referring Provider Family Medicine; Visit Provider Family Medicine
DX: Z36.89 Encounter for other specified antenatal screening (principal); Z3A.21 21 weeks gestation of pregnancy
CPT/HCPCS: 76811

== ENCOUNTER → 2023-02-16 17:11 | Outpatient (CLI) | payer OTHER, MEDICAID, SELFPAY ==
--- NOTE | 2023-02-16 | DI.RAD.S_ITS ---
PROCEDURE: XR CHEST 2V INDICATIONS: moderate persistent asthma with acute exacerbation TECHNIQUE: 2 views of the chest were acquired. COMPARISON: None. FINDINGS: Surgical changes and devices: None. Lungs and pleura: Lungs are clear. No pleural effusions or pneumothorax. Mediastinum: Mediastinal contours are normal. Heart size is normal. Bones and chest wall: No suspicious bony abnormalities. Soft tissues appear unremarkable. IMPRESSION: No acute cardiopulmonary abnormality appreciated. Dictated by: Robi Cason M.D. on 02/17/2023 at 12:11 Approved by: Robi Cason M.D. on 02/17/2023 at 12:11
== END ==
PROVIDERS: PCP Family Medicine; Referring Provider Family Medicine; Visit Provider Family Medicine
DX: J45.41 Moderate persistent asthma with (acute) exacerbation (principal)
CPT/HCPCS: 71046

== ENCOUNTER 2024-01-11 14:25 | Emergency (ER) | payer OTHER, MEDICAID, SELFPAY ==
[2024-01-11 14:30] VITALS: BP 142/71; PULSE 75; RESP 16; TEMP 36.9; O2SAT 99; BMI 34.0
[2024-01-11 14:31] VITALS: PULSE 78; O2SAT 99
--- NOTE | 2024-01-11 14:49 | DI.US.S_ITS ---
PROCEDURE: US OB <= 14 WEEKS FETUS INDICATIONS: Pelvic cramping and vaginal bleeding, approximately 9 weeks OUTSIDE/PRIOR DATING DATA: Last menstrual period (LMP): 11/10/2023. LMP-based estimated date of delivery (NANCY): 08/16/2024. First dating scan (date and location): 01/11/2024. Estimated date of delivery (NANCY) from first dating scan: 09/02/2024. TECHNIQUE: Real-time scanning was performed of the fetus and maternal pelvic organs, with image documentation. Endovaginal scanning was also performed to better visualize the fetus and maternal ovaries. COMPARISON: None. FINDINGS: Embryo: Gestational sac is seen. A possible pole is seen measuring 0.6 cm, consistent with 6 weeks and 3 days. Yolk sac is not seen. Heart rate: 88 beats per minute Maternal organs: Ovaries are within normal limits. IMPRESSION: Gestational sac is seen with a possible pole consistent with 6 weeks and 3 days. A heart rate of 88 beats per minute is detected which is low. Recommend beta HCG trend and short-term follow-up ultrasound, as clinically indicated. We strive to produce accurate, complete, and clear reports of imaging services. To assist us in improving patient care, this report was composed using standard report templates and voice recognition software. Therefore, it may contain abnormal punctuation, insertions and/or omissions. Occasional wrong-word or sound-alike substitutions may occur. Though we review the report and make efforts to correct it, we do recommend that the report be read carefully in proper context to recognize any text inaccuracies. Dictated by: Win Jang M.D. on 01/11/2024 at 16:27 Approved by: Win Jang M.D. on 01/11/2024 at 16:29
--- NOTE | 2024-01-11 14:52 | ED_ITS ---
HPI - <Jesus Hernandez DO - Last Filed: 01/16/24 16:51> General Chief complaint: Vaginal Bleeding Stated complaint: 9 weeks bleeding starting today Time Seen by Provider: 01/11/24 14:31 Source: patient Mode of arrival: Ambulatory Limitations: no limitations History of Present Illness HPI Narrative: Patient is a 38-year-old female no significant past medical history, comes into the ED from home for evaluation of vaginal bleeding and cramping. Patient states she is approximately 9 weeks . States that this is her 10th , has had 9 births previously 8 of which was vaginal 1 with . She states that she has had ?multiple other miscarriages but is unable to quantify this. 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 Patient denies any headache visual disturbances chest pain shortness of breath fever chills nausea vomiting or any other GI/ some time. States that she has noticed small amounts of pink blood with some mild pelvic cramping therefore decided to come into the ED for further evaluation treatment. Not on any blood thinners. No trauma no falls no recent sick contacts no travel. She states that this was a planned , states that she is allergic to niacin therefore she has not been taking any prenatals. Related Data Home Medications Medication Instructions Recorded Confirmed acyclovir 200 mg capsule 400 mg PO BID PRN Outbreak 04/28/18 12/02/20 Previous Rx's Medication Instructions Recorded docusate sodium 100 mg capsule 100 mg PO BID prevent constipation 05/30/19 from pain meds #60 caps ibuprofen 600 mg tablet 600 mg PO Q6HR PRN Fever/Mild Pain 12/04/20 (1-3) #60 tabs Allergies Allergy/AdvReac Type Severity Reaction Status Date / Time niacin Allergy Rash Verified 01/11/24 14:37 Review of Systems <Jesus Hernandez DO - Last Filed: 01/16/24 16:51> Review of Systems Narrative: HEENT: Denies headache, eye drainage, eye irritation, head trauma, sore throat, voice change Cardiovascular: Denies any chest pain, palpitations, shortness of breath, tachycardia, bradycardia Respiratory: Denies any shortness of breath, cough, wheeze, stridor GI/: Denies any abdominal pain, nausea, vomiting, diarrhea, bright red blood per rectum, melanotic stools, urinary frequency, urinary retention, dysuria hematuria. Positive for , as well as vaginal bleeding and pelvic cramping MSK: Denies any joint pain, muscle pains Skin: Denies any rashes, lesions Neuro: Denies any headache, lightheadedness, dizziness, fainting, weakness Psych: Denies SI/HI Exam <Jesus Hernandez DO - Last Filed: 01/16/24 16:51> Narrative Exam Narrative: General: Cooperative, comfortable, well-developed, not in acute distress HEENT: Normocephalic, atraumatic, PERRLA, normal sclera, eyelids normal, Neck: Active full range of motion, atraumatic Chest: Normal to inspection, negative crepitus, no overlying erythema ecchymosis Respiratory: Normal respiratory effort, not in acute respiratory distress, clear to auscultation bilaterally negative cough, wheeze, tachypnea, rhonchi, rales Cardiology: Regular rate rhythm negative gallop, murmur, rubs GI/: Normal to inspection, soft, nonrigid, no tenderness to palpation, exam deferred, mild tenderness to palpation of the pelvic region MSK: Full range of active range of motion of all 4 extremities, atraumatic Skin: No rashes lesions noted Neuro: Alert awake oriented x3, moves all 4 extremities spontaneously, cranial nerves intact, able to answer all questions appropriately follows commands appropriately Psych: Cooperative, negative suicidal or homicidal ideations Initial Vital Signs Initial Vital Signs: Vital Signs Temperature 98.4 F 01/11/24 14:30 Pulse Rate 75 01/11/24 14:30 Respiratory Rate 16 01/11/24 14:30 Blood Pressure 142/71 H 01/11/24 14:30 Pulse Oximetry 99 01/11/24 14:30 Oxygen Delivery Method Room Air 01/11/24 14:30 <Amanda Kauffman MD - Last Filed: 01/16/24 02:39> Initial Vital Signs Initial Vital Signs: Vital Signs Temperature 98.4 F 01/11/24 14:30 Pulse Rate 75 01/11/24 14:30 Respiratory Rate 16 01/11/24 14:30 Blood Pressure 142/71 H 01/11/24 14:30 Pulse Oximetry 99 01/11/24 14:30 Oxygen Delivery Method Room Air 01/11/24 14:30 Course <Jesus Hernandez DO - Last Filed: 01/16/24 16:51> Course Course Narrative: Patient was signed out to Dr. Kauffman on 01/11/2024 at 1510. Patient pending lab and ultrasound Orders Ordered: ED Orders 01/11/24 14:44 ABO RH Type Stat BMP [Basic Metabolic Panel] Stat Beta HCG, Quant [HCG Quantitative /Beta subunit] Stat Complete Blood Count AUTO DIFF Stat 01/11/24 14:49 US OB <= 14 weeks fetus Stat patient was signed out to Dr. Kauffman pending full workup Vital Signs Vital signs: Vital Signs - 8 hr 01/11/24 14:30 Temperature 98.4 F Pulse Rate 75 Respiratory Rate 16 Blood Pressure 142/71 H Pulse Oximetry 99 Oxygen Delivery Method Room Air <Amanda Kauffman MD - Last Filed: 01/16/24 02:39> Orders Ordered: ED Orders 01/11/24 14:44 ABO RH Type Stat BMP [Basic Metabolic Panel] Stat Beta HCG, Quant [HCG Quantitative /Beta subunit] Stat Complete Blood Count AUTO DIFF Stat 01/11/24 14:49 US OB <= 14 weeks fetus Stat Vital Signs Vital signs: Vital Signs - 8 hr 01/11/24 14:30 Temperature 98.4 F Pulse Rate 75 Respiratory Rate 16 Blood Pressure 142/71 H Pulse Oximetry 99 Oxygen Delivery Method Room Air MDM - OB/Uterine Contractions <Jesus Hernandez DO - Last Filed: 01/16/24 16:51> Differential Diagnosis Differential diagnosis: Likely other (Threatened , normal , asymptomatic bacteriuria, urinary tract infection) Medical Records Attestation: I reviewed the patient's medical records. Lab Data Attestation: I reviewed the patient's lab results. 01/11/24 14:44 01/11/24 14:44 Labs: Lab Results 01/11/24 Range/Units 14:44 WBC 8.4 (4.5-11.0) X10^3/uL RBC 4.41 (4.0-5.2) X10^6/uL Hgb 13.5 (12.0-16.0) g/dL Hct 38.3 (36-46) % MCV 86.9 (80-100) fL MCH 30.5 (26-34) PG MCHC 35.1 (30-36) % RDW 13.2 (11.6-14.8) % Plt Count 230 (150-400) X10^3/uL Neut % (Auto) 65.3 (50-75) % Lymph % (Auto) 24.9 L (25-40) % Ness % (Auto) 6.2 (3-14) % Eos % (Auto) 2.8 (2-4) % Baso % (Auto) 0.8 (0-2) % Neut # (Auto) 5500 (1865-6078) /uL Lymph # (Auto) 2100 (8557-8667) /uL Ness # (Auto) 500 (0-900) /uL Eos # (Auto) 200 (0-450) /uL Baso # (Auto) 100 (0-100) /uL Sodium 135 L (137-145) mmol/L Potassium 3.7 (3.4-5.1) mmol/L Chloride 108 H (98-107) mmol/L Carbon Dioxide 21 L (22-32) mmol/L BUN 10 (7-17) mg/dL Creatinine 0.61 (0.52-1.04) mg/dL Estimated GFR > 60 (>60) mL/min BUN/Creatinine Ratio 16.4 (6-22) Glucose 95 (70-100) mg/dL Calcium 8.8 (8.4-10.2) mg/dL HCG, Quant 76693 mIU/mL Blood Type A Positive Point of Care Testing Test Results Positive Urine Dip Bedside Urine Glucose Negative Bedside Urine Bilirubin - Negative Bedside Urine Ketone - Negative Urine Specific [place] 1.020 Bedside Urine Occult Blood - Negative Bedside Urine pH 6.0 Bedside Urine Protein - Negative Bedside Urine Urobilinogen - Negative Bedside Urine Nitrite - Negative Bedside Urine Leukocytes - Negative Esterase MDM Narrative Medical decision making narrative: Patient is a 38-year-old female without any significant past medical history came into the ED from home for evaluation of vaginal bleeding and pelvic pain, is approximately 9 weeks . <Amanda Kauffman MD - Last Filed: 01/16/24 02:39> Lab Data Labs: Lab Results 01/11/24 Range/Units 14:44 WBC 8.4 (4.5-11.0) X10^3/uL RBC 4.41 (4.0-5.2) X10^6/uL Hgb 13.5 (12.0-16.0) g/dL Hct 38.3 (36-46) % MCV 86.9 (80-100) fL MCH 30.5 (26-34) PG MCHC 35.1 (30-36) % RDW 13.2 (11.6-14.8) % Plt Count 230 (150-400) X10^3/uL Neut % (Auto) 65.3 (50-75) % Lymph % (Auto) 24.9 L (25-40) % Ness % (Auto) 6.2 (3-14) % Eos % (Auto) 2.8 (2-4) % Baso % (Auto) 0.8 (0-2) % Neut # (Auto) 5500 (5947-8704) /uL Lymph # (Auto) 2100 (1519-2873) /uL Ness # (Auto) 500 (0-900) /uL Eos # (Auto) 200 (0-450) /uL Baso # (Auto) 100 (0-100) /uL Sodium 135 L (137-145) mmol/L Potassium 3.7 (3.4-5.1) mmol/L Chloride 108 H (98-107) mmol/L Carbon Dioxide 21 L (22-32) mmol/L BUN 10 (7-17) mg/dL Creatinine 0.61 (0.52-1.04) mg/dL Estimated GFR > 60 (>60) mL/min BUN/Creatinine Ratio 16.4 (6-22) Glucose 95 (70-100) mg/dL Calcium 8.8 (8.4-10.2) mg/dL HCG, Quant 08072 mIU/mL Blood Type A Positive Point of Care Testing Test Results Positive Urine Dip Bedside Urine Glucose Negative Bedside Urine Bilirubin - Negative Bedside Urine Ketone - Negative Urine Specific [place] 1.020 Bedside Urine Occult Blood - Negative Bedside Urine pH 6.0 Bedside Urine Protein - Negative Bedside Urine Urobilinogen - Negative Bedside Urine Nitrite - Negative Bedside Urine Leukocytes - Negative Esterase Imaging Data US - OB: Radiologist's Impression: PROCEDURE: US OB <= 14 WEEKS FETUS INDICATIONS: Pelvic cramping and vaginal bleeding, approximately 9 weeks OUTSIDE/PRIOR DATING DATA: Last menstrual period (LMP): 11/10/2023. LMP-based estimated date of delivery (NANCY): 08/16/2024. First dating scan (date and location): 01/11/2024. Estimated date of delivery (NANCY) from first dating scan: 09/02/2024. TECHNIQUE: Real-time scanning was performed of the fetus and maternal pelvic organs, with image documentation. Endovaginal scanning was also performed to better visualize the fetus and maternal ovaries. COMPARISON: None. FINDINGS: Embryo: Gestational sac is seen. A possible pole is seen measuring 0.6 cm, consistent with 6 weeks and 3 days. Yolk sac is not seen. Heart rate: 88 beats per minute Maternal organs: Ovaries are within normal limits. IMPRESSION: Gestational sac is seen with a possible pole consistent with 6 weeks and 3 days. A heart rate of 88 beats per minute is detected which is low. Recommend beta HCG trend and short-term follow-up ultrasound, as clinically indicated. We strive to produce accurate, complete, and clear reports of imaging services. To assist us in improving patient care, this report was composed using standard report templates and voice recognition software. Therefore, it may contain abnormal punctuation, insertions and/or omissions. Occasional wrong-word or sound-alike substitutions may occur. Though we review the report and make efforts to correct it, we do recommend that the report be read carefully in proper context to recognize any text inaccuracies. Dictated by: Win Jang M.D. on 01/11/2024 at 16:27 Approved by: Win Jang M.D. on 01/11/2024 at 16:29 [facility] Narrative Medical decision making narrative: Patient is a 38-year-old female without any significant past medical history came into the ED from home for evaluation of vaginal bleeding and pelvic pain, is approximately [address] Kauffman -care of patient is signed out to me by previous provider. Patient reassessed, resting comfortably in bed. Patient was blood type A positive. Ultrasound shows single IUP consistent with 6 weeks and 3 days. Heart rate 88 beats per minute. Patient counseled on lab and imaging findings, recommended close OBGYN follow up as the heart rate is low and would need to be closely monitored to see if there is an eventual miscarriage. Patient states she will follow up with the OBGYN. Discharge Plan Departure Patient Disposition: Home Clinical Impression: Vaginal bleeding Instructions: DI for Vaginal Bleeding During Activity Restrictions/Additional Instructions: Your ultrasound today showed a gestational sac and pole consistent with 6 weeks and 3 days. The heartbeat was 88 beats per minute, which is low at this stage. I recommend close follow up with your OBGYN for monitoring of this . Pelvic rest is recommended until otherwise seen and cleared by OBGYN. Prescriptions: No Action acyclovir 200 mg capsule 400 mg PO BID PRN (Reason: Outbreak) Patient Comments: take 2 tablets by mouth twice a day if needed. patient states takes more as preventative docusate sodium 100 mg capsule 100 mg PO BID Qty: 60 0RF ibuprofen 600 mg Tablet 600 mg PO Q6HR PRN (Reason: Fever/Mild Pain (1-3)) Qty: 60 1RF Referrals: Davon Berg MD [Primary Care Provider] - Stand Alone Forms: Patient Portal/API
[2024-01-11 16:06] LABS: Add Manual Diff / Slide Review NO; Basophils Absolute Auto 100 /uL (0-100); Basophils Percent Auto 0.8 % (0-2); Eosinophils Absolute Auto 200 /uL (0-450); Eosinophils Percent Auto 2.8 % (2-4); Hematocrit 38.3 % (36-46); Hemoglobin 13.5 g/dL (12.0-16.0); Lymphocytes Absolute Auto 2100 /uL (1100-4500); Lymphocytes Percent Auto 24.9 % (25-40); Mean Corpuscular HGB Conc 35.1 % (30-36); Mean Corpuscular Hemoglobin 30.5 PG (26-34); Mean Corpuscular Volume 86.9 fL (80-100); Monocytes Absolute Auto 500 /uL (0-900); Monocytes Percent Auto 6.2 % (3-14); Neutrophils Absolute Auto 5500 /uL (1500-7000); Neutrophils Percent Auto 65.3 % (50-75); Platelet Count 230 X10^3/uL (150-400); Red Blood Cell Count 4.41 X10^6/uL (4.0-5.2); Red Cell Distribution Width 13.2 % (11.6-14.8); White Blood Cell Count 8.4 X10^3/uL (4.5-11.0)
[2024-01-11 16:13] LABS: Sodium 135 mmol/L (137-145)
[2024-01-11 16:16] LABS: BUN Creatinine Ratio 16.4 (6-22); Blood Urea Nitrogen 10 mg/dL (7-17); Calcium 8.8 mg/dL (8.4-10.2); Carbon Dioxide 21 mmol/L (22-32); Chloride 108 mmol/L (98-107); Estimated Glomerular Filt Rate > 60 mL/min (>60); Glucose 95 mg/dL (70-100); HEMOLYSIS 19 (0-50); Potassium 3.7 mmol/L (3.4-5.1)
[2024-01-11 16:44] VITALS: BP 125/77; PULSE 78; O2SAT 98
[2024-01-11 16:58] LABS: HCG Quantitative /Beta subunit 28659 mIU/mL
== END 2024-01-11 17:03 | disposition home or self-care (01) ==
PROVIDERS: Student in an Organized Health Care Education/Training Program; Emergency Provider Emergency Medicine; PCP Family Medicine
DX: O46.91 Antepartum hemorrhage, unspecified, first trimester (principal); R10.2 Pelvic and perineal pain; Z3A.09 9 weeks gestation of pregnancy
CPT/HCPCS: 36415; 76801; 80048; 81003; 81025; 84702; 85025; 86900; 86901; 99283; 99284

== ENCOUNTER → 2024-01-18 06:49 | Outpatient (CLI) | payer OTHER, MEDICAID, SELFPAY ==
--- NOTE | 2024-01-18 06:54 | DI.US.S_ITS ---
PROCEDURE: US OB <= 14 WEEKS FETUS INDICATIONS: SPOTTING, BRADYCARDIA; POSSIBLE AB IN PROGRESS OUTSIDE/PRIOR DATING DATA: Last menstrual period (LMP): 11/10/2023. LMP-based estimated date of delivery (NANCY): 08/16/2024. First dating scan (date and location): 01/11/2024. Estimated date of delivery (NANCY) from first dating scan: 09/02/2024. TECHNIQUE: Real-time scanning was performed of the fetus and maternal pelvic organs, with image documentation. Endovaginal scanning was also performed to better visualize the fetus and maternal ovaries. COMPARISON: [facility], , OB <= 14 WEEKS FETUS, 01/11/2024, 15:23. FINDINGS: Embryo: A gestational sac is present measuring 2.4 centimeters. This is consistent with 7 weeks and 3 days. No pole is seen. Heart rate: No pole or heart rate detected Maternal organs: Left ovary is normal in appearance. Right ovary is not seen. IMPRESSION: Gestational sac is seen which would be consistent with 7 weeks and 3 days. No pole is seen. Findings are concerning for failed early . We strive to produce accurate, complete, and clear reports of imaging services. To assist us in improving patient care, this report was composed using standard report templates and voice recognition software. Therefore, it may contain abnormal punctuation, insertions and/or omissions. Occasional wrong-word or sound-alike substitutions may occur. Though we review the report and make efforts to correct it, we do recommend that the report be read carefully in proper context to recognize any text inaccuracies. Dictated by: Win Jang M.D. on 01/18/2024 at 8:48 Approved by: Win Jang M.D. on 01/18/2024 at 8:51
== END ==
PROVIDERS: PCP Family Medicine; Referring Provider Obstetrics & Gynecology; Visit Provider Obstetrics & Gynecology
DX: O46.90 Antepartum hemorrhage, unspecified, unspecified trimester (principal)
CPT/HCPCS: 76801; 76817